=== PATIENT | male | born 1955 | race Caucasian/White ===

== ENCOUNTER 2022-03-15 13:03 | Observation (INO) | payer SELFPAY ==
[2022-03-15] VITALS (20 sets, daily range): BP systolic 70–113; BP diastolic 59–89; PULSE 62–90; RESP 10–18; TEMP 36.6; O2SAT 94–99; BMI 40.4
--- NOTE | 2022-03-15 13:52 | ED_ITS ---
HPI - General Adult General Chief complaint: Dizziness/Vertigo Stated complaint: Dizzy, short of breath Time Seen by Provider: 03/15/22 13:07 Source: patient Mode of arrival: ambulatory Limitations: no limitations History of Present Illness HPI narrative: Patient is a 66-year-old male coming in today complaining of dizziness. He states that over the last 2-3 months about once a week, he gets an episode no dizziness. He states that ?when I put my feet on the ground I get dizzy. ? The episodes generally lasts until he is able to sit down and put his feet up. . He describes the room moving around him, feeling very lightheaded. He states that this has been occurring more and more frequently over the last couple weeks and in the last 3 days it has been fairly constant. He states that if he is sitting down or lying down then he does okay but the minute that he changes positions generally from a sitting to a standing or lying to sitting he immediately becomes lightheaded. He states that 1 time he got up too quickly and he passed out. This happened last week. He denies any vomiting. He does not feel nauseated when this occurs. He denies chest pain or shortness of breath. No recent fevers or chills. No recent illness. He denies having headache. He denies changes in his hearing. He states when he gets very dizzy he almost has a hard time focusing on what he needs to see but his vision is otherwise not blurry or lessened. Denies any slurred speech. He denies any focal neurologic deficits or weakness of any extremity. He denies any new medications. Related Data Home Medications Medication Instructions Recorded Confirmed amiodarone 200 mg tablet 200 mg PO DAILY 03/15/22 03/15/22 glipizide 5 mg tablet 5 mg PO DAILY 03/15/22 03/15/22 metoprolol succinate 50 mg 50 mg PO DAILY 03/15/22 03/15/22 tablet,extended release 24 hr spironolactone 100 mg tablet 100 mg PO DAILY 03/15/22 03/15/22 valsartan 160 mg tablet 160 mg PO BID 03/15/22 03/15/22 Allergies Allergy/AdvReac Type Severity Reaction Status Date / Time No Known Drug Allergies Allergy Verified 03/15/22 13:22 Review of Systems Status of ROS: Reports: 10 or more systems reviewed and unremarkable except as noted in History and below [facility] Medical History (Updated 03/15/22 @ 16:20 by Rossy Carrasco MD) Atrial fibrillation Non-insulin dependent diabetes mellitus Social History Smoking Status: Current every day smoker What tobacco products do you use: cigarettes Do you use any of these nicotine containing products: None Second hand tobacco smoke exposure: No How often do you have a drink containing alcohol: never How often do you have six or more drinks on one occasion: Never AUDIT-C Alcohol total score: 0 Non-prescribed substance use: denies use Exam Narrative: Exam Narrative: Obese, well-developed patient in no acute distress. Alert and oriented. Answers questions appropriately. Mood and affect are appropriate. Thoughts are goal oriented and rational. No tangential or magical thinking noted. Patient speaks in full sentences without needing to catch his breath. HEENT: Normocephalic atraumatic. Pupils are equally round reactive to light. Extraocular muscles are intact. Conjunctivae are moist without any icterus noted. Dry mucous membranes. Posterior pharynx is normal. Neck is soft without any lymphadenopathy or thyromegaly. No masses are appreciated. Cardiovascular: Heart is regular rate and rhythm S1 and S2 are present without any murmurs. Lungs: Clear to auscultation bilaterally no wheezes rhonchi or rales are appreciated. Patient takes deep breaths without any discomfort. Abdomen: Soft and nontender nondistended with normal bowel sounds. No guarding or rebound. Extremities: Bilateral lower extremities are without edema. Normal DP and PT pulses. Skin: Well perfused without any obvious rashes. Const: Vital Signs, click to edit/add: Vital Signs - 24 hr 03/15/22 13:22 03/15/22 13:15 03/15/22 13:35 Temperature 97.8 F Pulse Rate [Right Pulse Oximeter] 90 Pulse Rate [orthos tatic lying Left P ulse Oximeter] 75 Pulse Rate [orthos tatic sitting Left Pulse Oximeter] 87 Pulse Rate [orthos tatic standing Rig ht Pulse Oximeter] Respiratory Rate 18 Blood Pressure [Ri ght Forearm] 104/80 104/80 Blood Pressure [or thostatic lying Ri ght Arm] 102/74 Blood Pressure [or thostatic sitting] 70/59 L Blood Pressure [or thostatic standing Left Arm] Pulse Oximetry 97 Oxygen Delivery Me thod Room Air 03/15/22 14:30 03/15/22 15:11 03/15/22 15:00 Temperature Pulse Rate [Right Pulse Oximeter] 66 71 Pulse Rate [orthos tatic lying Left P ulse Oximeter] 71 Pulse Rate [orthos tatic sitting Left Pulse Oximeter] 78 Pulse Rate [orthos tatic standing Rig ht Pulse Oximeter] 84 Respiratory Rate 10 L 11 L Blood Pressure [Ri ght Forearm] 113/81 105/74 Blood Pressure [or thostatic lying Ri ght Arm] 105/74 Blood Pressure [or thostatic sitting] 97/67 Blood Pressure [or thostatic standing Left Arm] 89/72 L Pulse Oximetry 97 99 Oxygen Delivery Me thod Room Air Room Air 03/15/22 15:20 03/15/22 15:30 03/15/22 13:30 Temperature Pulse Rate [Right Pulse Oximeter] 68 70 73 Pulse Rate [orthos tatic lying Left P ulse Oximeter] Pulse Rate [orthos tatic sitting Left Pulse Oximeter] Pulse Rate [orthos tatic standing Rig ht Pulse Oximeter] Respiratory Rate 12 10 L 10 L Blood Pressure [Ri ght Forearm] 99/60 112/89 104/70 Blood Pressure [or thostatic lying Ri ght Arm] Blood Pressure [or thostatic sitting] Blood Pressure [or thostatic standing Left Arm] Pulse Oximetry 99 94 97 Oxygen Delivery Ky thod Room Air Room Air Room Air 03/15/22 13:40 03/15/22 14:00 Temperature Pulse Rate [Right Pulse Oximeter] 76 69 Pulse Rate [orthos tatic lying Left P ulse Oximeter] Pulse Rate [orthos tatic sitting Left Pulse Oximeter] Pulse Rate [orthos tatic standing Rig ht Pulse Oximeter] Respiratory Rate 16 10 L Blood Pressure [Ri ght Forearm] 110/75 90/65 Blood Pressure [or thostatic lying Ri ght Arm] Blood Pressure [or thostatic sitting] Blood Pressure [or thostatic standing Left Arm] Pulse Oximetry 96 97 Oxygen Delivery Ky thod Room Air Room Air Course Course Hospital Course: Patient had significant orthostatic hypotension upon arrival with an almost 30 point drop in systolic blood pressure from lying to sitting. He received a L of normal saline and felt significantly better. His orthostatic hypotension resolved and his dizziness had resolved. His labs did show acute renal failure. Upon further conversation patient tells me that he stopped drinking alcohol, which she had been drinking for the last 15 years on a daily basis, 1 month ago. However, Venous blood gas came back with a pH low at 7.2. Discussed patient with Dr. Carrasco who recommended admission for further observation. Vital Signs Vital signs: Initial Vital Signs Blood Pressure 104/80 03/15/22 13:15 Blood Pressure Mean 88 03/15/22 13:15 Blood Pressure Position Supine 03/15/22 13:15 Vital Signs Blood Pressure 104/80 03/15/22 13:15 Temperature 97.8 F 03/15/22 13:22 Pulse Rate 70 03/15/22 15:30 Respiratory Rate 10 L 03/15/22 15:30 Blood Pressure 112/89 03/15/22 15:30 Pulse Oximetry 94 03/15/22 15:30 Oxygen Delivery Method 03/15/22 15:30 Medical Decision Making MDM Narrative Medical decision making narrative: 66-year-old male with orthostatic hypotension, acute renal failure, and metabolic acidosis, rate controlled atrial fibrillation. His blood pressure is also quite low at baseline. This is changed from several months ago when he had chronically elevated blood pressure. I do think that he cessation of alcohol use certainly had something do with these changes that are occurring. Given his low pH and low blood pressure, patient will be admitted for further management at this time. Medical Records Medical records reviewed: Yes I reviewed the patient's medical records Lab Data Lab results reviewed: Yes I reviewed the patient's lab results Labs: Lab Results 03/15/22 03/15/22 03/15/22 Range/Units 13:44 13:50 13:50 WBC 7.28 (4.50-11.00) K/uL RBC 4.95 (4.30-5.90) m/uL Hgb 16.3 (13.5-17.5) gm/dL Hct 48.1 (37.0-53.0) % MCV 97 (80-100) fL MCH 33 (26-34) pg MCHC 34 (32-36) gm/dL RDW Coeff of Leni 12.3 (11.5-15.5) % Plt Count 304 (140-440) K/uL Neut % (Auto) 60.2 (42.0-72.0) % Lymph % (Auto) 31.0 (20-44) % [place] % (Auto) 4.7 (0.0-11.0) % Eos % (Auto) 3.6 (0.0-7.0) % Baso % (Auto) 0.4 (0.0-3.0) % Neut # (Auto) 4.38 (1.7-7.0) K/uL Lymph # (Auto) 2.26 (0.90-2.90) K/uL [place] # (Auto) 0.30 (0.00-0.90) K/UL Eos # (Auto) 0.26 (0.00-0.50) K/uL Baso # (Auto) 0.03 (0.00-0.30) K/uL Abs Immat Gran (auto) 0.01 (0.00-0.30) K/uL VBG pH (7.32-7.43) VBG pCO2 (40-50) mmHG VBG pO2 (25-47) mmHG VBG HCO3 (21-28) mmol/L Sodium 137 (135-149) mmol/L Potassium 5.2 H (3.6-5.1) mmol/L Chloride 111 (96-114) mmol/L Carbon Dioxide 17 L (20-32) mmol/L BUN 31 H (7-30) mg/dL Creatinine 1.8 H (0.5-1.5) mg/dL Estimated Creat Clear 53.60 Estimated GFR 42 ml/min Glucose 142 H (60-115) mg/dL Calcium 9.4 (8.4-10.6) mg/dL Total Bilirubin 0.7 (0.1-1.5) mg/dL Direct Bilirubin 0.2 (0.0-0.5) mg/dL AST 31 (12-35) U/L ALT 51 H (4-50) U/L Alkaline Phosphatase 56 (40-150) U/L NT-Pro-B Natriuret Pep (0-125) PG/mL Total Protein 7.6 (6.0-8.3) g/dL Albumin 4.3 (3.3-5.0) g/dL POC Troponin I 0.00 L (0.01-0.04) ng/ml 03/15/22 03/15/22 Range/Units 13:50 14:56 WBC (4.50-11.00) K/uL RBC (4.30-5.90) m/uL Hgb (13.5-17.5) gm/dL Hct (37.0-53.0) % MCV (80-100) fL MCH (26-34) pg MCHC (32-36) gm/dL RDW Coeff of Leni (11.5-15.5) % Plt Count (140-440) K/uL Neut % (Auto) (42.0-72.0) % Lymph % (Auto) (20-44) % [place] % (Auto) (0.0-11.0) % Eos % (Auto) (0.0-7.0) % Baso % (Auto) (0.0-3.0) % Neut # (Auto) (1.7-7.0) K/uL Lymph # (Auto) (0.90-2.90) K/uL [place] # (Auto) (0.00-0.90) K/UL Eos # (Auto) (0.00-0.50) K/uL Baso # (Auto) (0.00-0.30) K/uL Abs Immat Gran (auto) (0.00-0.30) K/uL VBG pH 7.272 L (7.32-7.43) VBG pCO2 51 H (40-50) mmHG VBG pO2 26.5 (25-47) mmHG VBG HCO3 24 (21-28) mmol/L Sodium (135-149) mmol/L Potassium (3.6-5.1) mmol/L Chloride (96-114) mmol/L Carbon Dioxide (20-32) mmol/L BUN (7-30) mg/dL Creatinine (0.5-1.5) mg/dL Estimated Creat Clear Estimated GFR ml/min Glucose (60-115) mg/dL Calcium (8.4-10.6) mg/dL Total Bilirubin (0.1-1.5) mg/dL Direct Bilirubin (0.0-0.5) mg/dL AST (12-35) U/L ALT (4-50) U/L Alkaline Phosphatase (40-150) U/L NT-Pro-B Natriuret Pep 414 H (0-125) PG/mL Total Protein (6.0-8.3) g/dL Albumin (3.3-5.0) g/dL POC Troponin I (0.01-0.04) ng/ml ECG Data Attestation: I personally reviewed and interpreted this ECG as follows: (Rate controlled atrial fibrillation) Discharge Plan Discharge Clinical Impression: Acute renal failure, Metabolic acidosis, Dehydration Patient Disposition: Admitted As Inpatient
[2022-03-15] MEDS: 0.9 % SODIUM CHLORIDE 1000 ml 1,000 ML IV (14:00)
[2022-03-15 14:11] LABS: Basophils Absolute Auto 0.03 K/uL (0.00-0.30); Basophils Percent Auto 0.4 % (0.0-3.0); Eosinophils Absolute Auto 0.26 K/uL (0.00-0.50); Eosinophils Percent Auto 3.6 % (0.0-7.0); Hematocrit 48.1 % (37.0-53.0); Hemoglobin* 16.3 gm/dL (13.5-17.5); Immature Granulocytes Abs Auto 0.01 K/uL (0.00-0.30); Lymphocytes Absolute Auto 2.26 K/uL (0.90-2.90); Mean Corpuscular HGB Conc 34 gm/dL (32-36); Mean Corpuscular Hemoglobin 33 pg (26-34); Mean Corpuscular Volume 97 fL (80-100); Monocytes Percent Auto 4.7 % (0.0-11.0); Neutrophils Absolute Auto 4.38 K/uL (1.7-7.0); Neutrophils Percent Auto 60.2 % (42.0-72.0); Platelet Count* 304 K/uL (140-440); RDW Coefficient of Variation % 12.3 % (11.5-15.5); Red Blood Count 4.95 m/uL (4.30-5.90); White Blood Count* 7.28 K/uL (4.50-11.00)
[2022-03-15 14:12] LABS: Albumin* 4.3 g/dL (3.3-5.0); Chloride* 111 mmol/L (96-114); Potassium* 5.2 mmol/L (3.6-5.1); Sodium* 137 mmol/L (135-149)
[2022-03-15 14:14] LABS: Creatinine* 1.8 mg/dL (0.5-1.5); Estimated Glomerular Filt Rate 42 ml/min; Slide Review Reflex No
[2022-03-15 14:15] LABS: Alanine Aminotransferase* 51 U/L (4-50); Alkaline Phosphatase* 56 U/L (40-150); Aspartate Amino Transferase* 31 U/L (12-35); Bilirubin Direct* 0.2 mg/dL (0.0-0.5); Bilirubin Total* 0.7 mg/dL (0.1-1.5); Blood Urea Nitrogen* 31 mg/dL (7-30); Calcium* 9.4 mg/dL (8.4-10.6); Carbon Dioxide* 17 mmol/L (20-32); Glucose* 142 mg/dL (60-115); Total Protein* 7.6 g/dL (6.0-8.3)
[2022-03-15 15:12] LABS: HCO3 VBG 24 mmol/L (21-28); PCO2 VBG 51 mmHG (40-50); PO2 VBG 26.5 mmHG (25-47); pH VBG 7.272 (7.32-7.43)
[2022-03-15 15:45] LABS: NT Pro B Type NatriureticPept* 414 PG/mL (0-125)
--- NOTE | 2022-03-15 15:45 | ED.NURSE ---
spoke with pt about discharge. In anticipation of pt discharged, IV in R AC DC'd, catheter intact. Monitors DC'd. then returned to after viewing additional lab results, pt now needing admission.
--- NOTE | 2022-03-15 16:05 | P.IMHP_ITS ---
Hospitalist- H&P: DARSHAN History of Present Illness Time Seen by Provider: 16:05 Date Seen: 03/15/22 Chief complaint: Dizzy, short of breath Narrative: Salinas Meza is a 66 year old male who presented to the ED for dizziness. He has noted this intermittently for the past 2-3 months, but it has increased in frequency and intensity over the past week. Standing exacerbates symptoms; patient actually had an episode of syncope this week after standing up. He also has noted intermittent dyspnea, which he has had intermittently in the past due to his AFib. This is unchanged today. He has not had any chest pain, fevers, or other signs or symptoms of illness. No LE edema or pain. Of note, Salinas had been drinking a few beers daily for many years, stopped this approximately 1 month ago. ED Course and Findings: - BP on arrival to the ED was 104/80 with + orthostatic hypotension, which improved after IV fluid bolus - Ph of 7.27, CO2 51, HCO3 normal - Creatinine of 1.8, K of 5.2 (baseline creatinine 0.8 in November 2021) History of atrial fibrillation, first noted in August 2017. Has had a hard time controlling his rate over the past few years (hospitalized in [place] in 2019). Has been cardioverted x2. Doesn't tolerate a fib symptoms well (fatigue, HINOJOSA). He follows with Dr. Amaro at the [facility]. Currently on metoprolol and amiodarone for rate control. Last TTE was performed in August 2020, exhibiting normal left ventricular size with moderately increased wall thickness and a normal global systolic function and EF 60-65%, as well as an dilated ascending aorta with maximal diameter 4.2 cm. He is on aspirin as monotherapy for anticoagulation (had been on Xarelto and Coumadin in the past, stopped both of these secondary to cost and time constraints). Comorbidities include essential hypertension, non-insulin dependent DM2, with most recent A1c 7.0 in August of 2021, and likely sleep apnea (noted by Cardiology in the past, patient has elected to defer sleep study). , has 2 adult sons. Son Christiano would be medical decision maker if needed. Full Code, would not want care home ventilation. Lives in [place], works in construction. Recently restarted smoking (quit about 5 years ago), took this up again after quitting drinking. Has not been COVID vaccinated, refuses discussion. Dr. Díaz is PCP. Review of Systems Status of ROS: Reports: 10 or more systems reviewed and unremarkable except as noted in History and below [facility] Medical History (Updated 03/15/22 @ 17:04 by Rossy Carrasco MD) Atrial fibrillation Non-insulin dependent diabetes mellitus Social History Smoking Status: Current every day smoker What tobacco products do you use: cigarettes Do you use any of these nicotine containing products: None Second hand tobacco smoke exposure: No How often do you have a drink containing alcohol: never How often do you have six or more drinks on one occasion: Never AUDIT-C Alcohol total score: 0 Non-prescribed substance use: denies use Meds Home Medications and Allergies Home Medications Medication Instructions Recorded Confirmed Type amiodarone 200 mg tablet 200 mg PO DAILY 03/15/22 03/15/22 History glipizide 5 mg tablet 5 mg PO DAILY 03/15/22 03/15/22 History metoprolol succinate 50 mg 50 mg PO DAILY 03/15/22 03/15/22 History tablet,extended release 24 hr spironolactone 100 mg tablet 100 mg PO DAILY 03/15/22 03/15/22 History valsartan 160 mg tablet 160 mg PO BID 03/15/22 03/15/22 History Home Medication Comments: Patient also on 325mg ASA daily. Allergies Allergy/AdvReac Type Severity Reaction Status Date / Time No Known Drug Allergies Allergy Verified 03/15/22 13:22 Exam Narrative: Exam Narrative: GEN: Alert and oriented, answering questions appropriately and sitting comfortably in bed HEENT: Normal external ears, EOMIs bilaterally, no scleral icterus CV: Rate controlled atrial fibrillation, No concerning murmurs, rubs, or gallops R: LCTA bilaterally without concerning wheezing, rales, or rhonchi, air movement adequate Ext: wwp, no concerning edema Skin: No concerning skin lesions or rashes on exposed skin Neuro: Nonfocal, no resting tremor Psych: Appropriate Const: Vital Signs, click to edit/add: Vital Signs - 24 hr 03/15/22 13:22 03/15/22 13:15 03/15/22 13:35 Temperature 97.8 F Pulse Rate [Right Pulse Oximeter] 90 Pulse Rate [orthos tatic lying Left P ulse Oximeter] 75 Pulse Rate [orthos tatic sitting Left Pulse Oximeter] 87 Pulse Rate [orthos tatic standing Rig ht Pulse Oximeter] Respiratory Rate 18 Blood Pressure [Ri ght Forearm] 104/80 104/80 Blood Pressure [or thostatic lying Ri ght Arm] 102/74 Blood Pressure [or thostatic sitting] 70/59 L Blood Pressure [or thostatic standing Left Arm] Pulse Oximetry 97 Oxygen Delivery Me thod Room Air 03/15/22 14:30 03/15/22 15:11 03/15/22 15:00 Temperature Pulse Rate [Right Pulse Oximeter] 66 71 Pulse Rate [orthos tatic lying Left P ulse Oximeter] 71 Pulse Rate [orthos tatic sitting Left Pulse Oximeter] 78 Pulse Rate [orthos tatic standing Rig ht Pulse Oximeter] 84 Respiratory Rate 10 L 11 L Blood Pressure [Ri ght Forearm] 113/81 105/74 Blood Pressure [or thostatic lying Ri ght Arm] 105/74 Blood Pressure [or thostatic sitting] 97/67 Blood Pressure [or thostatic standing Left Arm] 89/72 L Pulse Oximetry 97 99 Oxygen Delivery Me thod Room Air Room Air 03/15/22 15:20 03/15/22 15:30 03/15/22 13:30 Temperature Pulse Rate [Right Pulse Oximeter] 68 70 73 Pulse Rate [orthos tatic lying Left P ulse Oximeter] Pulse Rate [orthos tatic sitting Left Pulse Oximeter] Pulse Rate [orthos tatic standing Rig ht Pulse Oximeter] Respiratory Rate 12 10 L 10 L Blood Pressure [Ri ght Forearm] 99/60 112/89 104/70 Blood Pressure [or thostatic lying Ri ght Arm] Blood Pressure [or thostatic sitting] Blood Pressure [or thostatic standing Left Arm] Pulse Oximetry 99 94 97 Oxygen Delivery Me thod Room Air Room Air Room Air 03/15/22 13:40 03/15/22 14:00 Temperature Pulse Rate [Right Pulse Oximeter] 76 69 Pulse Rate [orthos tatic lying Left P ulse Oximeter] Pulse Rate [orthos tatic sitting Left Pulse Oximeter] Pulse Rate [orthos tatic standing Rig ht Pulse Oximeter] Respiratory Rate 16 10 L Blood Pressure [Ri ght Forearm] 110/75 90/65 Blood Pressure [or thostatic lying Ri ght Arm] Blood Pressure [or thostatic sitting] Blood Pressure [or thostatic standing Left Arm] Pulse Oximetry 96 97 Oxygen Delivery Me thod Room Air Room Air Hospitalist - H&P: Result Labs Labs: Short CBC 03/15/22 Range/Units 13:50 WBC 7.28 (4.50-11.00) K/uL Hgb 16.3 (13.5-17.5) gm/dL Hct 48.1 (37.0-53.0) % Plt Count 304 (140-440) K/uL BMP 03/15/22 13:50 Sodium 137 Potassium 5.2 H Chloride 111 Carbon Dioxide 17 L BUN 31 H Creatinine 1.8 H Glucose 142 H Calcium 9.4 Liver Function 03/15/22 Range/Units 13:50 Total Bilirubin 0.7 (0.1-1.5) mg/dL Direct Bilirubin 0.2 (0.0-0.5) mg/dL AST 31 (12-35) U/L ALT 51 H (4-50) U/L Alkaline Phosphatase 56 (40-150) U/L Albumin 4.3 (3.3-5.0) g/dL Assessment and Plan Assessment and plan (1) Acute renal failure: Status: Acute Assessment and Plan: Likely prerenal, given hypotension - meds possibly contributing as well. Continue IV fluids at a low rate, follow renal function. Stop Valsartan and Spironolactone, decrease Glipizide from 5 to 2.5mg. (2) Iatrogenic hypotension: Status: Acute Assessment and Plan: Expect improvement with medication changes. We discussed that patient's blood pressure has likely improved with his cessation of alcohol use, and he will need less medication for BP control. He will require close outpatient follow-up for blood pressure monitoring. (3) Acidosis: Status: Acute Assessment and Plan: Mild elevation of CO2, but unknown baseline, likely has PALOMO. No evidence of acute illness, acidosis likely related to MAYDA and dehydration. Follow VBG; expect pH to improve as blood pressure increases. (4) Dehydration: Status: Acute (5) Atrial fibrillation: Status: Acute Assessment and Plan: Currently rate controlled. CHADsVASC of 3, patient defers anticoagulation beyond ASA. Given syncope and hypotension, will repeat TTE to assess cardiac structure and EF. Continue outpatient Cardiology f/u. (6) Non-insulin dependent diabetes mellitus: Status: Acute Assessment and Plan: Accu-Cheks and sliding scale insulin. (7) Hyperkalemia: Status: Acute Assessment and Plan: Likely related to #1 Above. Will monitor with telemetry during stay. Plan Renally dosed Lovenox for prophylaxis. Patient requests Full Code status, does not desire care home ventilatory support.
[2022-03-15 16:45] LABS: Lactate* 1.4 mmol/L (0.5-1.9)
[2022-03-15 16:49] LABS: PCR FLU A Negative PCR FLU A (Negative); PCR FLU B Negative PCR FLU B (Negative)
--- NOTE | 2022-03-15 16:51 | W.PC.EDHO ---
Primary Language: Lao Preferred Language: Orientation Status: [x] Alert & Oriented [] Slight Confusion [] Known Dx Dementia Transfers By: [x] Assist of 1 [] Assist of 2 [] Lift Description of Symptoms ED Triage Present Problem history of afib and diabetes. pt states has been Description having dizzy spells for a couple months. called clinic today and was referred to ED Ena Coma Scale Ena coma scale total score 15 IV Insertion/Site Date of IV Line Insertion [ 03/15/22 Right Forearm] Date of IV Line Insertion [ *DC'd* 03/15/22 Right Antecubital] Oxygen Administration Pulse Oximetry 95 Pulse Oximetry 94 Pulse Oximetry 99 Pulse Oximetry 99 Pulse Oximetry 97 Pulse Oximetry 97 Pulse Oximetry 96 Pulse Oximetry 97 Pulse Oximetry 97 Oxygen Delivery Method Room Air Oxygen Delivery Method Room Air Oxygen Delivery Method Room Air Oxygen Delivery Method Room Air Oxygen Delivery Method Room Air Oxygen Delivery Method Room Air Oxygen Delivery Method Room Air Oxygen Delivery Method Room Air Oxygen Delivery Method Room Air Cardiac Monitoring EKG Method 12 Lead
[2022-03-15 17:23] LABS: SARS PCR* Negative SARS-CoV-2 (Negative)
[2022-03-15] MEDS: 0.9 % SODIUM CHLORIDE 1000 ml 1,000 ML 75 ML IV (20:48)
--- NOTE | 2022-03-16 05:51 | PC.NURSE ---
Alert and oriented x4. Denies diziness. Vitals are stable and patient is on room air.Denies pain. Afib on continuous telemetry. Up independently to the bathroom. Voiding fine without concerns. Monitored overnight; no new concerns noted
[2022-03-16 06:35] LABS: HCO3 VBG 22 mmol/L (21-28); PCO2 VBG 44 mmHG (40-50); PO2 VBG 39.6 mmHG (25-47); pH VBG 7.302 (7.32-7.43)
[2022-03-16 06:56] LABS: Albumin* 3.9 g/dL (3.3-5.0); Chloride* 111 mmol/L (96-114); Potassium* 5.3 mmol/L (3.6-5.1); Sodium* 137 mmol/L (135-149)
[2022-03-16 06:58] LABS: Creatinine* 1.3 mg/dL (0.5-1.5); Est. Creatinine Clearance* 74.21; Estimated Glomerular Filt Rate 61 ml/min
[2022-03-16 06:59] LABS: Alanine Aminotransferase* 49 U/L (4-50); Alkaline Phosphatase* 48 U/L (40-150); Aspartate Amino Transferase* 32 U/L (12-35); Bilirubin Total* 0.9 mg/dL (0.1-1.5); Blood Urea Nitrogen* 27 mg/dL (7-30); Carbon Dioxide* 21 mmol/L (20-32); Glucose* 108 mg/dL (60-115)
[2022-03-16 07:00] VITALS: BP 95/64; PULSE 73; RESP 20; TEMP 36.6; O2SAT 99
[2022-03-16 07:00] LABS: Calcium* 8.9 mg/dL (8.4-10.6)
[2022-03-16 07:14] LABS: Troponin I* < 0.01 ng/mL (0.01-0.04)
[2022-03-16 07:30] VITALS: BP 95/64; PULSE 73; RESP 20; TEMP 36.7; O2SAT 99
[2022-03-16 08:25] VITALS: PULSE 88
[2022-03-16 10:00] VITALS: BP 100/76; BP 103/93; BP 92/68; PULSE 102; PULSE 82; PULSE 92
[2022-03-16] MEDS: glipiZIDE 5 MG TABLET 2.5 MG PO (10:00)
[2022-03-16] MEDS: METOPROLOL SUCCINATE (XL) 50 MG TAB PO (10:02)
[2022-03-16] MEDS: AMIODARONE 200 MG TABLET PO (10:02)
[2022-03-16] MEDS: ASPIRIN 81 MG TAB.CHEW 324 MG PO (10:02)
--- NOTE | 2022-03-16 10:52 | NUTR.NU ---
SRINATHN with MD consult for low sodium and diabetes type 2 diet education[address] RDN visited with patient whom agreed to receive diet education materials, however he denied review of educational materials at this time. He stated it would be redundant and that he has received this diet education 2x recently. RDN provided patient with handouts from [facility] on Heart Healthy with Carbohydrate Counting Nutrition Therapy and Carbohydrate Counting for People with Diabetes. Patient states he eats a lot of canned soups and red meat, and that he will not change what he is eating. He reports he has recently decreased his use of salt, rarely salting foods now. RDNs contact information was provided and patient was encouraged to contact RDN if he had any questions.
--- NOTE | 2022-03-16 11:29 | P.IMPN_ITS ---
Progress Note: A&P Assessment and plan (1) Acute renal failure: Status: Acute Assessment and Plan: Acute kidney injury likely due to combination of factors including aggressive treatment of heart failure with spironolactone and valsartan. Unclear why this week he had hypotension, acute kidney injury, hyperkalemia and metabolic acidosis. Will hold spironolactone and cut valsartan in half. Will need close followup and additional titration of heart failure medicines. (2) Heart failure with preserved ejection fraction: Status: Acute Assessment and Plan: Patient describes significant heart failure symptoms. He tells me he can only work for about 10 minutes before he has to stop and take a break and catch his breath. This has been a long-standing problem. Worse recently. It appears he is having adequate rate control with his AFib. Likely other factors are contributing. Optimizing heart failure medicines over the next weeks and months may benefit this. (3) Atrial fibrillation: Status: Acute Assessment and Plan: Rate control appears to be adequate. Continue metoprolol and amiodarone. Unclear if needing a long-term amiodarone (4) Hyperkalemia: Status: Acute Assessment and Plan: Likely due to hypotension with spironolactone and valsartan. Temporarily stop spironolactone and cut valsartan in half. Patient may tolerate a low dose of spironolactone in the future (5) Non-insulin dependent diabetes mellitus: Status: Acute Assessment and Plan: Adequate control (6) Iatrogenic hypotension: Status: Acute Assessment and Plan: Still relatively low blood pressure today. Has not yet held medicine for 24 hours. (7) Metabolic acidosis: Status: Acute Assessment and Plan: Resolved with fluid overnight (8) Gynecomastia: Status: Acute Assessment and Plan: Due to high-dose spironolactone. May tolerate low-dose in the future Plan Obtain echocardiogram today. Monitor for symptoms. Possibly discharge to home later today if feeling well an echocardiogram does not show new problems. Subjective Date Seen: 03/16/22 Interval history: 66-year-old male seen in followup of acute on chronic dyspnea and acute on chronic dizziness. Patient reports longstanding problems with exertional dyspnea. This is gotten worse in the last few days. He also has had increasing dizziness in the last few days. He he attributes this to atrial fibrillation. He has had atrial fibrillation for about 4 years. He is unsure whether he is in persistent AFib or in an out of paroxysmal AFib. He has apparently had fairly good rate control with his atrial fibrillation. He has had orthostatic lightheadedness and dizziness which has been much worse in the past week. He reports he has been able to eat and drink normally. He has not been having nausea or vomiting or diarrhea. He has not any other symptoms of illness. No fever. No chest pain. About a month ago he stop drinking alcohol altogether and wonders if that is contributing to his current symptoms. He had increase in his spironolactone to 100 mg daily. He reports this is causing some gynecomastia and tenderness in his breasts. Exam Narrative: Exam Narrative: He is alert and appears in no distress. Speech is normal. Small airway. No jugular venous distension. Respirations are clear to auscultation. No wheezing rales or rhonchi. Good air exchange all lung sidhu. Cardiovascular: S1, S2, somewhat distant heart sounds. Irregularly irregular rhythm. No murmur gallop or rub. Abdomen: Bowel sounds active. Abdomen is soft without tenderness or mass. Extremities with no edema. Intact peripheral pulses. He moves all 4 extremities well. No rash. Const: Vital Signs, click to edit/add: Vital Signs - 24 hr 03/15/22 13:22 03/15/22 13:15 03/15/22 13:35 Temperature 97.8 F Pulse Rate Pulse Rate [Pulse Oximeter] Pulse Rate [Right Pulse Oximeter] 90 Pulse Rate [orthos tatic lying Left P ulse Oximeter] 75 Pulse Rate [orthos tatic sitting Left Pulse Oximeter] 87 Pulse Rate [orthos tatic standing Rig ht Pulse Oximeter] Respiratory Rate 18 Blood Pressure [Le ft Arm] Blood Pressure [Ri ght Forearm] 104/80 104/80 Blood Pressure [or thostatic lying Ri ght Arm] 102/74 Blood Pressure [or thostatic sitting] 70/59 L Blood Pressure [or thostatic standing Left Arm] Pulse Oximetry 97 Oxygen Delivery Me thod Room Air 03/15/22 14:30 03/15/22 15:11 03/15/22 15:00 Temperature Pulse Rate Pulse Rate [Pulse Oximeter] Pulse Rate [Right Pulse Oximeter] 66 71 Pulse Rate [orthos tatic lying Left P ulse Oximeter] 71 Pulse Rate [orthos tatic sitting Left Pulse Oximeter] 78 Pulse Rate [orthos tatic standing Rig ht Pulse Oximeter] 84 Respiratory Rate 10 L 11 L Blood Pressure [Le ft Arm] Blood Pressure [Ri ght Forearm] 113/81 105/74 Blood Pressure [or thostatic lying Ri ght Arm] 105/74 Blood Pressure [or thostatic sitting] 97/67 Blood Pressure [or thostatic standing Left Arm] 89/72 L Pulse Oximetry 97 99 Oxygen Delivery Me thod Room Air Room Air 03/15/22 15:20 03/15/22 15:30 03/15/22 16:46 Temperature Pulse Rate Pulse Rate [Pulse Oximeter] Pulse Rate [Right Pulse Oximeter] 68 70 66 Pulse Rate [orthos tatic lying Left P ulse Oximeter] Pulse Rate [orthos tatic sitting Left Pulse Oximeter] Pulse Rate [orthos tatic standing Rig ht Pulse Oximeter] Respiratory Rate 12 10 L Blood Pressure [Le ft Arm] Blood Pressure [Ri ght Forearm] 99/60 112/89 105/66 Blood Pressure [or thostatic lying Ri ght Arm] Blood Pressure [or thostatic sitting] Blood Pressure [or thostatic standing Left Arm] Pulse Oximetry 99 94 95 Oxygen Delivery Me thod Room Air Room Air Room Air 03/15/22 13:30 03/15/22 13:40 03/15/22 14:00 Temperature Pulse Rate Pulse Rate [Pulse Oximeter] Pulse Rate [Right Pulse Oximeter] 73 76 69 Pulse Rate [orthos tatic lying Left P ulse Oximeter] Pulse Rate [orthos tatic sitting Left Pulse Oximeter] Pulse Rate [orthos tatic standing Rig ht Pulse Oximeter] Respiratory Rate 10 L 16 10 L Blood Pressure [Le ft Arm] Blood Pressure [Ri ght Forearm] 104/70 110/75 90/65 Blood Pressure [or thostatic lying Ri ght Arm] Blood Pressure [or thostatic sitting] Blood Pressure [or thostatic standing Left Arm] Pulse Oximetry 97 96 97 Oxygen Delivery Me thod Room Air Room Air Room Air 03/15/22 17:00 03/15/22 17:15 03/15/22 17:30 Temperature Pulse Rate Pulse Rate [Pulse Oximeter] Pulse Rate [Right Pulse Oximeter] 70 74 62 Pulse Rate [orthos tatic lying Left P ulse Oximeter] Pulse Rate [orthos tatic sitting Left Pulse Oximeter] Pulse Rate [orthos tatic standing Rig ht Pulse Oximeter] Respiratory Rate Blood Pressure [Le ft Arm] Blood Pressure [Ri ght Forearm] 96/80 113/81 110/70 Blood Pressure [or thostatic lying Ri ght Arm] Blood Pressure [or thostatic sitting] Blood Pressure [or thostatic standing Left Arm] Pulse Oximetry 98 97 97 Oxygen Delivery Me thod Room Air Room Air Room Air 03/15/22 17:45 03/15/22 18:10 03/15/22 19:00 Temperature Pulse Rate 71 Pulse Rate [Pulse Oximeter] Pulse Rate [Right Pulse Oximeter] 66 Pulse Rate [orthos tatic lying Left P ulse Oximeter] Pulse Rate [orthos tatic sitting Left Pulse Oximeter] Pulse Rate [orthos tatic standing Rig ht Pulse Oximeter] Respiratory Rate Blood Pressure [Le ft Arm] Blood Pressure [Ri ght Forearm] 108/80 Blood Pressure [or thostatic lying Ri ght Arm] Blood Pressure [or thostatic sitting] Blood Pressure [or thostatic standing Left Arm] Pulse Oximetry 99 Oxygen Delivery Me thod Room Air Room Air 03/15/22 19:00 03/15/22 22:50 03/15/22 23:00 Temperature 97.8 F 97.8 F Pulse Rate 64 Pulse Rate [Pulse Oximeter] 68 Pulse Rate [Right Pulse Oximeter] Pulse Rate [orthos tatic lying Left P ulse Oximeter] Pulse Rate [orthos tatic sitting Left Pulse Oximeter] Pulse Rate [orthos tatic standing Rig ht Pulse Oximeter] Respiratory Rate 16 16 Blood Pressure [Le ft Arm] 108/63 103/75 Blood Pressure [Ri ght Forearm] Blood Pressure [or thostatic lying Ri ght Arm] Blood Pressure [or thostatic sitting] Blood Pressure [or thostatic standing Left Arm] Pulse Oximetry 99 99 Oxygen Delivery Me thod Room Air Room Air 03/16/22 07:30 03/16/22 10:00 03/16/22 08:25 Temperature 98.1 F Pulse Rate 88 Pulse Rate [Pulse Oximeter] 73 Pulse Rate [Right Pulse Oximeter] Pulse Rate [orthos tatic lying Left P ulse Oximeter] 82 Pulse Rate [orthos tatic sitting Left Pulse Oximeter] 92 Pulse Rate [orthos tatic standing Rig ht Pulse Oximeter] 102 H Respiratory Rate 20 Blood Pressure [Le ft Arm] 95/64 Blood Pressure [Ri ght Forearm] Blood Pressure [or thostatic lying Ri ght Arm] 100/76 Blood Pressure [or thostatic sitting] 92/68 Blood Pressure [or thostatic standing Left Arm] 103/93 H Pulse Oximetry 99 Oxygen Delivery Me thod Room Air 03/16/22 07:00 Temperature 97.8 F Pulse Rate Pulse Rate [Pulse Oximeter] 73 Pulse Rate [Right Pulse Oximeter] Pulse Rate [orthos tatic lying Left P ulse Oximeter] Pulse Rate [orthos tatic sitting Left Pulse Oximeter] Pulse Rate [orthos tatic standing Rig ht Pulse Oximeter] Respiratory Rate 20 Blood Pressure [Le ft Arm] 95/64 Blood Pressure [Ri ght Forearm] Blood Pressure [or thostatic lying Ri ght Arm] Blood Pressure [or thostatic sitting] Blood Pressure [or thostatic standing Left Arm] Pulse Oximetry 99 Oxygen Delivery Me thod Room Air Documenting provider has reviewed patient's vital signs: yes Labs Labs: Laboratory Results - last 24 hr 03/15/22 03/15/22 03/15/22 13:44 13:50 13:50 WBC 7.28 RBC 4.95 Hgb 16.3 Hct 48.1 MCV 97 MCH 33 MCHC 34 RDW Coeff of Leni 12.3 Plt Count 304 Neut % (Auto) 60.2 Lymph % (Auto) 31.0 [place] % (Auto) 4.7 Eos % (Auto) 3.6 Baso % (Auto) 0.4 Neut # (Auto) 4.38 Lymph # (Auto) 2.26 [place] # (Auto) 0.30 Eos # (Auto) 0.26 Baso # (Auto) 0.03 Abs Immat Gran (auto) 0.01 VBG pH VBG pCO2 VBG pO2 VBG HCO3 Sodium 137 Potassium 5.2 H Chloride 111 Carbon Dioxide 17 L BUN 31 H Creatinine 1.8 H Estimated Creat Clear 53.60 Estimated GFR 42 Glucose 142 H Lactate Calcium 9.4 Magnesium Total Bilirubin 0.7 Direct Bilirubin 0.2 AST 31 ALT 51 H Alkaline Phosphatase 56 Troponin I NT-Pro-B Natriuret Pep Total Protein 7.6 Albumin 4.3 TSH SARS-CoV-2 (PCR) Influenza Type A (PCR) Influenza Type B (PCR) POC Troponin I 0.00 L 03/15/22 03/15/22 03/15/22 13:50 14:56 16:06 WBC RBC Hgb Hct MCV MCH MCHC RDW Coeff of Leni Plt Count Neut % (Auto) Lymph % (Auto) [place] % (Auto) Eos % (Auto) Baso % (Auto) Neut # (Auto) Lymph # (Auto) [place] # (Auto) Eos # (Auto) Baso # (Auto) Abs Immat Gran (auto) VBG pH 7.272 L VBG pCO2 51 H VBG pO2 26.5 VBG HCO3 24 Sodium Potassium Chloride Carbon Dioxide BUN Creatinine Estimated Creat Clear Estimated GFR Glucose Lactate Calcium Magnesium Cancelled Total Bilirubin Direct Bilirubin AST ALT Alkaline Phosphatase Troponin I NT-Pro-B Natriuret Pep 414 H Total Protein Albumin TSH SARS-CoV-2 (PCR) Influenza Type A (PCR) Influenza Type B (PCR) POC Troponin I 03/15/22 03/15/22 03/15/22 16:06 16:07 16:32 WBC RBC Hgb Hct MCV MCH MCHC RDW Coeff of Leni Plt Count Neut % (Auto) Lymph % (Auto) [place] % (Auto) Eos % (Auto) Baso % (Auto) Neut # (Auto) Lymph # (Auto) [place] # (Auto) Eos # (Auto) Baso # (Auto) Abs Immat Gran (auto) VBG pH VBG pCO2 VBG pO2 VBG HCO3 Sodium Potassium Chloride Carbon Dioxide BUN Creatinine Estimated Creat Clear Estimated GFR Glucose Lactate 1.4 Calcium Magnesium Total Bilirubin Direct Bilirubin AST ALT Alkaline Phosphatase Troponin I NT-Pro-B Natriuret Pep Total Protein Albumin TSH 2.480 SARS-CoV-2 (PCR) Negative SARS-CoV-2 Influenza Type A (PCR) Negative PCR FLU A Influenza Type B (PCR) Negative PCR FLU B POC Troponin I 03/16/22 03/16/22 06:04 06:04 WBC RBC Hgb Hct MCV MCH MCHC RDW Coeff of Leni Plt Count Neut % (Auto) Lymph % (Auto) [place] % (Auto) Eos % (Auto) Baso % (Auto) Neut # (Auto) Lymph # (Auto) [place] # (Auto) Eos # (Auto) Baso # (Auto) Abs Immat Gran (auto) VBG pH 7.302 L VBG pCO2 44 VBG pO2 39.6 VBG HCO3 22 Sodium 137 Potassium 5.3 H Chloride 111 Carbon Dioxide 21 BUN 27 Creatinine 1.3 Estimated Creat Clear 74.21 Estimated GFR 61 Glucose 108 Lactate Calcium 8.9 Magnesium Total Bilirubin 0.9 Direct Bilirubin AST 32 ALT 49 Alkaline Phosphatase 48 Troponin I < 0.01 L NT-Pro-B Natriuret Pep Total Protein 7.0 Albumin 3.9 TSH SARS-CoV-2 (PCR) Influenza Type A (PCR) Influenza Type B (PCR) POC Troponin I
--- NOTE | 2022-03-16 14:06 | PC.NURSE ---
Pt UAL in his room. Eval by Dr. Borja. Orthostatic VS taken and provided to hospitalist. Pt denies pain, eupneic and in NAD. Tele indicates atrial fibrillation which is a chronic condition. Echocardiogram in process at this time with contrast per Srini [employer]ialty plant supervisor at bedside. Awaiting echo results and possible d/c later this afternoon.
[2022-03-16 14:40] LABS: Appearance Urine Clear (Clear); Bilirubin Urine Negative (Negative); Blood Urine Negative (Negative); Color Urine Yellow (Yellow); Glucose Urine Negative (Negative); Ketones Urine Negative (Negative); Leukocyte Esterase Urine Negative (Negative); Nitrite Urine Negative (Negative); Protein Urine Negative (Negative); Specific Gravity Urine 1.025 (1.000-1.030); Urobilinogen Urine 0.2 (0.2-1.0); pH Urine 5.5 (5.0-8.5)
[2022-03-16 14:45] LABS: RBC Urine 0-2 (0-2); WBC Urine 0-2 (0-5)
[2022-03-16 16:00] VITALS: BP 119/81; PULSE 70; RESP 18; TEMP 36.7; O2SAT 96
--- NOTE | 2022-03-16 17:23 | PC.NURSE ---
discharge. went over discharge packet with pt went over medsx1, appt 1 education and instructions. pt signed personal belonging sheet. took all belongings and paperwork with him. SL was d/c on previous shift. pt walked out on his own
== END 2022-03-16 15:50 | disposition home or self-care (01) ==
LOC: ED 16:29 → MEDSURG 17:19
PROVIDERS: Admitting Provider Family Medicine; Emergency Provider Family Medicine; PCP Family Medicine; Visit Provider Family Medicine
DX: N17.9 Acute kidney failure, unspecified (principal); E11.9 Type 2 diabetes mellitus without complications; Z79.84 Long term (current) use of oral hypoglycemic drugs; I50.30 Unspecified diastolic (congestive) heart failure; I48.91 Unspecified atrial fibrillation; E86.0 Dehydration; E87.5 Hyperkalemia; I95.89 Other hypotension
CPT/HCPCS: 36415; 80048; 80053; 80076; 81001; 82803; 82947; 83605; 83735; 83880; 84443; 84484; 85025; 87502; 87635; 93005; 93306; 96360; 99284; 99285; G0378; A9270; J7030

== ENCOUNTER 2022-11-04 10:14 | Outpatient (CLI) | payer MEDICARE, OTHER, SELFPAY | END 2022-11-04 10:15 | disposition home or self-care (01) | PROVIDERS: PCP Family Medicine; Visit Provider Family Medicine | DX: E11.9 Type 2 diabetes mellitus without complications (principal); I10 Essential (primary) hypertension; R06.09 Other forms of dyspnea; Z79.899 Other long term (current) drug therapy; I48.91 Unspecified atrial fibrillation; Z13.6 Encounter for screening for cardiovascular disorders; Z12.5 Encounter for screening for malignant neoplasm of prostate | CPT/HCPCS: 80053; 80061; 83880; 84153; 84443 ==

== ENCOUNTER 2022-12-01 12:42 | Outpatient (CLI) | payer MEDICARE, OTHER, SELFPAY ==
[2022-12-01] MEDS: PERFLUTREN LIPID MICROSPHERES 2 ML VIAL IV (13:45)
--- NOTE | 2022-12-01 13:46 | PC.NURSE ---
22g PIV placed in right forearm. Definity contrast 2ml administered. Tolerated well. PIV taken out and catheter tip intact.
== END 2022-12-01 12:43 | disposition home or self-care (01) ==
LOC: RAD 12:43
PROVIDERS: PCP Family Medicine; Visit Provider Family Medicine
DX: I50.9 Heart failure, unspecified (principal); I34.0 Nonrheumatic mitral (valve) insufficiency; I35.1 Nonrheumatic aortic (valve) insufficiency
CPT/HCPCS: 93306; Q9957

== ENCOUNTER 2023-01-24 19:12 | Outpatient (CLI) | payer MEDICARE, OTHER, SELFPAY ==
--- NOTE | 2023-02-01 09:07 | W.PM.SLEEP ---
Sleep Study Details Details Interpreting Provider: Caprice Date of Sleep Study: 01/24/23 Sleep Study Details: STUDY TYPE:? Home unattended ? BMI:? 40.3 ORDERING PROVIDER:? Bre INDICATION:? Concerns about sleep apnea ? SLEEP SUMMARY:? 523 minutes monitored RESPIRATORY SUMMARY:? AHI 43, supine 47.8, left lateral 33.6, right lateral 56.1 Low oxygen 68 75.4% of study oxygen less than 90% Snoring 17.3% PERIODIC LIMB MOVEMENTS OF SLEEP:? Not recorded during home study CARDIAC:? Range 42-75, mean 55.4 IMPRESSION:? Severe obstructive sleep apnea with significant hypo oxygenation RECOMMENDATION: In-lab titration would be preferred. Alternative would be a AutoSet CPAP. Once effective therapy is established overnight oximetry should be performed. Given the level of hypo oxygenation noted during the study further cardiopulmonary evaluation may be indicated.
== END 2023-01-24 19:13 | disposition home or self-care (01) ==
LOC: SLEEP 19:13
PROVIDERS: PCP Family Medicine; Visit Provider Family Medicine
DX: G47.33 Obstructive sleep apnea (adult) (pediatric) (principal)
CPT/HCPCS: 95806

== ENCOUNTER 2023-03-24 08:39 | Outpatient (CLI) | payer MEDICARE, OTHER, SELFPAY | END 2023-03-24 08:40 | disposition home or self-care (01) | PROVIDERS: PCP Family Medicine; Visit Provider Family Medicine | DX: E11.9 Type 2 diabetes mellitus without complications (principal); I10 Essential (primary) hypertension; E78.5 Hyperlipidemia, unspecified; E66.9 Obesity, unspecified; E86.0 Dehydration; Z79.01 Long term (current) use of anticoagulants | CPT/HCPCS: 80061; 80076 ==

== ENCOUNTER 2023-06-28 08:43 | Outpatient (CLI) | payer MEDICARE, OTHER, SELFPAY | END 2023-06-28 08:44 | disposition home or self-care (01) | PROVIDERS: PCP Family Medicine; Visit Provider Family Medicine | DX: Z01.818 Encounter for other preprocedural examination (principal); R79.89 Other specified abnormal findings of blood chemistry; I10 Essential (primary) hypertension; E11.9 Type 2 diabetes mellitus without complications; N17.9 Acute kidney failure, unspecified; I50.9 Heart failure, unspecified; Z79.899 Other long term (current) drug therapy | CPT/HCPCS: 80076; 84270; 84402; 84403 ==

== ENCOUNTER 2023-07-11 07:24 | Day surgery (SDC) | payer MEDICARE, OTHER, SELFPAY ==
[2023-07-11] VITALS (21 sets, daily range): BP systolic 113–160; BP diastolic 75–98; PULSE 47–92; RESP 12–20; TEMP 35.7–36.6; O2SAT 16–100; BMI 32.3
--- NOTE | 2023-07-11 07:45 | CRLHL7_ITS ---
For Patients: As a result of the Century Cures Act, medical imaging exams and procedure reports are released immediately into your electronic medical record. You may view this report before your referring provider. If you have questions, please contact your health care provider. INDICATION: Follow up right knee arthroplasty. TECHNIQUE: Two postoperative images of the right knee. FINDINGS: Right total knee arthroplasty. The components are adequately aligned and well seated. Air within the soft tissues and joint space related to the surgery. IMPRESSION: Right total knee arthroplasty. The components are adequately aligned and well seated. Dictated by Dagoberto Li MD @ 07/11/2023 12:03:13 PM (Electronically Signed)
[2023-07-11] MEDS: ACETAMINOPHEN 500 MG TABLET 1000 MG PO ×3 (07:50→21:57)
[2023-07-11] MEDS: OXYCODONE (CR) 10 MG TAB.ER.12H PO (07:50)
[2023-07-11] MEDS: LACTATED RINGERS 1000 ML 1,000 ML 100 ML IV (08:00)
[2023-07-11] MEDS: SODIUM CHLORIDE 0.9 % (FLUSH) 10 ML SYRINGE IVF (08:00)
[2023-07-11] MEDS: MIDAZOLAM HCL 1 MG/ML inj IVP (09:02)
[2023-07-11] MEDS: fentaNYL 100 MCG/2 ML inj IVP (09:02)
--- NOTE | 2023-07-11 09:11 | W.ANESCHARGE ---
Anesthesia Charges Start Date/Time Anesthesia Start Date: 07/11/23 Anesthesia Start Time: 09:35 Stop Date/Time Anesthesia Stop Date: 07/11/23 Anesthesia Stop Time: 11:44
--- NOTE | 2023-07-11 09:12 | P.NB_ITS ---
Nerve Block Nerve Block Time Seen by Provider: 09:06 Date Seen: 07/11/23 Type of block requested by surgeon for post-operative analgesia: geniculars Side: right Time out performed: Yes Verification of patient name: Yes Verification of date of : Yes Site marking: site marked Name of person performing procedure: Elijah Assistants, if any: Stephanie Continuous monitoring Was continuous monitoring of O2 sat, B/P, nuclear monitoring technician, recorded every 15 minutes?: Yes Procedure Checklist: sterile prep, needles and gloves Medications given in 5ml increments after negative aspiration: Ropivicaine %: 0.5 mL: 9 Needle gauge: 25 Patient tolerated procedure well: Yes Block Charges Block Charge (with Pro Fee): Genicular Nerve Block Use of Ultrasound Machine for Block: No
--- NOTE | 2023-07-11 09:12 | W.PM.NB ---
Nerve Block Nerve Block Time Seen by Provider: 09:06 Date Seen: 07/11/23 Type of block requested by surgeon for post-operative analgesia: adductor canal Side: right Time out performed: Yes Verification of patient name: Yes Verification of date of : Yes Site marking: site marked Name of person performing procedure: Elijah Assistants, if any: Stephanie Continuous monitoring Was continuous monitoring of O2 sat, B/P, cardiac nurse specialist, recorded every 15 minutes?: Yes Procedure Checklist: sterile prep, needles and gloves Ultrasound guided. Images saved: Yes Medications given in 5ml increments after negative aspiration: Ropivicaine %: 0.5 mL: 20 Needle gauge: 20 Decadron (mg): 10 Precedex (mcg): 25 Patient tolerated procedure well: Yes Additional comments: Needle noted adjacent to nerve Block Charges Block Charge (with Pro Fee): Femoral Nerve Use of Ultrasound Machine for Block: Yes- US Guidance/pain block
--- NOTE | 2023-07-11 09:12 | SUR.PREOP ---
TIME?OUT:?0900 PT/Brian ZACARIAS, RN/Reynold BARTHOLOMEW, INSTRUCTIONAL TECHNOLOGY SPECIALIST/Reynold MENCHACA MDA?VERIFICATION?OF?SURGICAL?SITE,?PROCEDURE,?AND?CONSENT OBTAINED?PRIOR?TO?INVASIVE?PROCEDURE.
[2023-07-11] MEDS: TRANEXAMIC ACID 100 MG/ML INJ 1000 MG IV (09:43)
[2023-07-11] MEDS: CEFAZOLIN 2 GM in 0.9 % SODIUM CHLORIDE Mini-bag 100 ML IVPB ×3 (09:45→23:56)
[2023-07-11] MEDS: CEFAZOLIN 1 GM inj IVP (09:58)
--- NOTE | 2023-07-11 10:28 | PM.IMCN1 ---
Date of Consult Consult date: 07/11/23 Requesting Physician: Orthopedics Primary Care Provider: Leonid Díaz MD Consult Narrative Reason for consult: Medical management Narrative: Salinas Meza is a 67 year old male past medical history significant for type 2 diabetes (100 lb weight loss since starting Ozempic), hypertension, obstructive sleep apnea not currently on CPAP, atrial fibrillation not currently on anticoagulation, failure with preserved ejection fraction not currently on a diuretic, low testosterone, BPH is POD#0 s/p right total knee arthroplasty with Dr. Marinelli. Currently, reports pain is 0/10. Denies headache or dizziness. Denies nausea. No complaints or concerns at this time. There have been no perioperative complications or nursing concerns reported. Estimated total blood loss documented as 50ml. Updated and reviewed the active medical problems, past medical history, past surgical history, social history, allergies and medications in our electronic EMR. Review of Systems Narrative: REVIEW OF SYSTEMS: Complete review of systems performed and negative unless otherwise stated in HPI or below. PFSH PFS Medical History Atrial fibrillation ?I48.91 - Unspecified atrial fibrillation (ICD-10) Sleep apnea ?G47.30 - Sleep apnea, unspecified (ICD-10) Low testosterone in male ?R79.89 - Other specified abnormal findings of blood chemistry (ICD-10) Osteoarthritis of left knee ?M17.12 - Unilateral primary osteoarthritis, left knee (ICD-10) DJD (degenerative joint disease) ?M19.90 - Unspecified osteoarthritis, unspecified site (ICD-10) Heart failure with preserved ejection fraction ?I50.30 - Unspecified diastolic (congestive) heart failure (ICD-10) Gynecomastia ?N62 - Hypertrophy of breast (ICD-10) Social History (Updated 07/11/23 @ 10:51 by Madhuri Yu PA-C) Smoking Status: Current every day smoker What tobacco products do you use: cigarettes Do you use any of these nicotine containing products: None How often do you have a drink containing alcohol: 2-4 times a month Alcohol type: beer How many standard drinks containing alcohol do you have on a typical day: 1 or 2 How often do you have six or more drinks on one occasion: Never AUDIT-C Alcohol total score: 2 Non-prescribed substance use: denies use Caffeine: Yes Meds Home Medications and Allergies Home Medications Medication Instructions Recorded Confirmed Type ergocalciferol (vitamin D2) 1,250 1,250 mcg PO Q7D 05/05/23 07/11/23 History mcg (50,000 unit) capsule semaglutide 1 mg/dose (4 mg/3 mL) 1 mg subcut Q7D 05/05/23 07/11/23 History subcutaneous pen injector (Ozempic) testosterone 12.5 mg/1.25 gram per 2 pump transdermal DAILY 05/05/23 07/11/23 History pump actuation (1%) transdermal gel Allergies Allergy/AdvReac Type Severity Reaction Status Date / Time No Known Drug Allergies Allergy Verified 07/11/23 08:03 Exam Narrative: Exam Narrative: PHYSICAL EXAM General: Pleasant, conversant, NAD HEENT: Normocephalic, atraumatic, sclera white, EOMI, oral mucosa moist Cardiovascular: RRR, S1S2. No pitting edema Pulmonary: CTA bilaterally without rhonchi, rales, expiratory wheezes. No dyspnea Neurological: Alert, answering questions appropriately, cranial nerves intact, no focal findings Extremities: No gross joint deformity or swelling. Post operative dressing in place, dry. Neurovascularly intact Skin: Warm, dry. Bilateral lower extremity digits, specifically great toes, with significant callused, dry skin Const: Vital Signs, click to edit/add: Vital Signs - 24 hr 07/11/23 08:04 07/11/23 08:58 07/11/23 09:00 Temperature 97.9 F Pulse Rate 60 60 60 Respiratory Rate 16 16 16 Blood Pressure 160/89 H 147/90 H 157/84 H Pulse Oximetry 98 100 100 Oxygen Delivery Me thod Room Air Nasal Cannula Nasal Cannula Oxygen Flow Rate 2 2 07/11/23 09:05 Temperature Pulse Rate 60 Respiratory Rate 16 Blood Pressure 137/85 Pulse Oximetry 94 Oxygen Delivery Me thod Nasal Cannula Oxygen Flow Rate 2 Assessment and Plan Assessment and plan (1) Osteoarthritis of right knee: Problem comment: -POD#0 s/p RTKA, plan to return home with son -perioperative management, including pain management, per primary team, Orthopedic Surgery -PT, VTE PPX per Orthopedic Surgery (ASA 81mg bid) -encourage post op pulmonary hygiene given h/o bronchitis, PALOMO, tobacco use (recently quit) Status: Chronic (2) Type 2 diabetes mellitus: Problem comment: -A1c 5.2, 100# weight loss since starting Ozempic -Ozempic held for past week. Patient states he is done with his medication with no plan to resume it following discharge. -encourage diabetic diet. TID WM blood glucose. No sliding scale ordered -recommend outpatient Podiatry consult as discussed with patient Status: Acute (3) Atrial fibrillation: Problem comment: -most recent EKG shows NSR (reported since significant weight loss) -has been on ASA 325mg daily, unable to tolerate Eliquis, did not follow through with Zio holter -resume metoprolol upon discharge, currently bradycardic -telemetry post op -followed by Cardiology Status: Chronic (4) Heart failure with preserved ejection fraction: Problem comment: -monitor for fluid overload. Not currently on diuretic Status: Acute (5) Sleep apnea: Problem comment: -does not tolerate CPAP. per PCP need for new study following weight loss Status: Acute (6) Hypertension: Problem comment: -monitor post op. Resume home medications on discharge Status: Acute (7) Neuropathy: Problem comment: -resume gabapentin on discharge Status: Acute (8) BPH loc w urin obs/LUTS: Problem comment: -noncompliant with flomax Status: Acute (9) Tobacco abuse: Problem comment: -just started smoking for the 1st time ever in November 2022 as a crutch for weight loss and giving up alcohol use. Discussed importance of cessation for overall health as well as for healing, in setting of diabetes and peripheral neuropathy. Recommend outpatient podiatry consult. Status: Acute
--- NOTE | 2023-07-11 11:06 | P.ORPRC_ITS ---
Procedure Note Date of procedure: 07/11/23 Procedure: PREOPERATIVE DIAGNOSIS: 1. Right knee osteoarthritis, primary, severe POSTOPERATIVE DIAGNOSIS: 1. Right knee osteoarthritis, primary, severe PROCEDURE: 1. Right total knee arthroplasty SURGEON: Sergei Marinelli MD. CERTIFIED INDOOR ENVIRONMENTALIST: JONATHON Mays - Of note, a skilled certified medical assistant was critical for this case to aid in patient positioning, tissue retraction, limb manipulation/positioning, and closure. ANESTHESIA: Spinal anesthetic IMPLANTS: DePuy J&J all cemented TKA - Attune PS femur size 10, size 10 tibia, 5 poly spacer, 41mm patella TOURNIQUET: 90 min at 300 torr EBL: 50 ml COMPLICATIONS: None evident INDICATIONS: The patient is a pleasant 67-year-old male who has experienced severe right knee pain and difficulty bearing weight. Workup included x-rays which revealed severe osteoarthrosis in the knee. Given the deformity, the dysfunction, and the pain, as well as the failure of nonoperative management, recommendation was made for surgery. FINDINGS: Full-thickness chondral loss diffusely throughout the medial femoral condyle and medial tibial plateau as well as patellofemoral compartment. Significant lateral chondromalacia as well. Moderate effusion upon entering the joint. Large osteophytes diffusely in all 3 compartments. DESCRIPTION OF PROCEDURE: Following a thorough discussion of risks, benefits, and alternatives consent was obtained and the right knee was marked. The patient was brought to the operating room and placed supine on the operating table. Induction of anesthesia was undertaken. 3 g IV Ancef and 1 g tranexamic acid was administered within 1 hr of incision preoperatively. Proper time-out was performed identifying proper patient, site, procedure. The operative extremity was prepped and draped in the appropriate sterile fashion using ChloraPrep after the patient was positioned supine with all bony prominences well padded. A longitudinal, anterior, midline skin incision was made starting approximately 3cm proximal to the superior pole of the patella and advanced distal to the tibial tubercle. A median parapatellar arthrotomy was created. A medial subperiosteal sleeve was created with knife, mckinnon elevator and curved osteotome. The retropatellar fatpad was resected and the synovium in the suprapatellar pouch excised to visualize the anterior femoral cortex. Femoral preparation was performed via an intramedullary guide. Step drill allowed access into the femoral canal. The distal cutting guide was placed with 5? of valgus and 12 mm cut on the distal femur due to a 10-15 degree flexion contracture. Femur was sized using a posterior referencing guide in 3? of external rotation. This found have a best fit with the sizing noted above. The 4 in 1 cutting block was then placed, and the distal femur shaped accordingly. The box cut was then created and the trial implant inserted to confirm appropriate fit. We turned our attention to the proximal tibia. Extramedullary guide was utilized for cutting with the goal of being 90 degree cut from the mechanical axis of the tibia in the varus/valgus plane utilizing tibial crest as the primary alignment. Initially a 1 mm resection was performed from the medial tibial plateau. Ultimately, balancing was achieved in both flexion and extension in both varus and valgus. The knee was able to achieve full extension as well comfortably. The patella was initially measured and found have a thickness of 27 mm. It was resected back to approximately 17 mm. It was sized to be a best fit with as noted above. This was drilled, trial placed. All trials were placed and found to have an excellent stability and balance. At this stage, trial implants were removed, the knee was thoroughly irrigated with normal saline, and the cement was mixed. After irrigation, the knee was thoroughly dried, and cement placed, with the real tibial and femoral implants placed along with the patella. Trial poly spacer was placed and confirmed to have excellent range of motion and full extension, and the real poly spacer opened and inserted. All extra cement was removed, and a 3 min Betadine soak performed. Finally, a final irrigation round with normal saline was performed. Closure performed with 0 Vicryl and #0 Stratafix for the quad tendon/retinaculum. 2-0 Vicryl for the subcutaneous and 4-0 Stratafix for subcuticular closure. Dressings were applied and the patient was awoken from anesthesia after the tourniquet deflated and transferred the PACU in stable condition. A skilled certified medical assistant was critical for this case to aid in patient positioning, tissue retraction, bone exposure, limb manipulation/positioning, patient safety, and closure. PLAN: 1. Weight bear as tolerated operative extremity. 2. 23 hr perioperative antibiotics. 3. Ice. 4. PT/OT consults for ambulation assistance/mobility education. 5. Social work consult for discharge planning. 6. DVT prophylaxis with at SCDs, Randolph Davis, and aspirin twice daily.
--- NOTE | 2023-07-11 11:06 | W.PM.H&PU ---
History & Physical Update History & Physical Update H&P Reviewed and patient assessed: The following changes are noted below H&P Updates: Eliquis makes him ?sick?
--- NOTE | 2023-07-11 11:15 | W.ANESCHARGE ---
Anesthesia Charges Start Date/Time Anesthesia Start Date: 07/11/23 Anesthesia Start Time: 09:35 Stop Date/Time Anesthesia Stop Date: 07/11/23 Anesthesia Stop Time: 11:44
[2023-07-11] MEDS: LACTATED RINGERS 1000 ML 1,000 ML 75 ML IV (12:20)
[2023-07-11] MEDS: OXYCODONE 5 MG TABLET PO ×4 (14:00→21:57)
--- NOTE | 2023-07-11 15:42 | PC.NURSE ---
Pt arrived via hospital bed from PACU at 1215pm s/p RTKA with Dr. Marinelli. Hospitalist Madhuri Yu at bedside for evaluation of this post op patient. Please see initial assessment from PACU and frequent post op VS. Pt initially denied pain, then it was 2 of 10 when block began to wear off. Pt provided with 2 scheduled Tylenol ES and 2 oxycodone 5mg tablets for pain 3-4 out of 10 as premedication for upcoming therapy session. Pt did exercises with Slick and up to recliner with SBA of 1. Pt is 6 ft 6 inches tall, he declined the offer of a bed rural route carrier. No behaviors or dysphagia w/meds. Bed has knee lock on and bed alarm activated per fall prevention protocol. Pt has not voided since arrival to Med/Surg floor, teds and plexis off just prior to shift change. Pt advanced to regular diet. MS recovery patient who will d/c to own home with his brother and [id number] as transportation tomorrow. Report to Lizz Gardner RN for evening shift.
--- NOTE | 2023-07-11 15:47 | PC.SOCIAL ---
Discharge planning: Met with pt regarding discharge planning after surgery. Pt explained that he will be going home with his son and that he feels good about that plan. Pt will reach out to staff if anything changes and/or he needs resources, as far as discharge planning goes. No other social insurance analyst follow-up needed at this time.
[2023-07-11] MEDS: ASPIRIN 81 MG TABLET EC PO (21:56)
[2023-07-11] MEDS: SENNOSIDES 1 TAB TABLET 2 TAB PO (21:56)
--- NOTE | 2023-07-11 23:18 | PC.NURSE ---
VSS, RA. Right knee pain of 2-5- relief w/ PRN oxy, tylenol, and cryocuff. Tolerating regular diet, drinking well. Voided x3. Last BM 07/09/23- educated on narcotics and constipation. Up with Ax1 + gaitbelt & walker- walked in room, up in chair most of evening. PIV- SL'd. Will continue to monitor, follow POC, and keep pt and family updated. Lizz Perez RN
[2023-07-12 00:15] VITALS: BP 112/56; PULSE 77; PULSE 82; RESP 18; TEMP 37; O2SAT 98
[2023-07-12] MEDS: ACETAMINOPHEN 500 MG TABLET 1000 MG PO ×2 (02:25→08:23)
[2023-07-12] MEDS: OXYCODONE 5 MG TABLET PO ×3 (02:26→12:16)
[2023-07-12 02:30] VITALS: BP 126/88; PULSE 81; RESP 18; TEMP 36.7; O2SAT 97
--- NOTE | 2023-07-12 05:25 | PC.NURSE ---
Pt alert and oriented x3. Afebrile. Pt reports 5/10 pain in right knee, managed with cryo cuff and scheduled and PRN medications. Pt's right knee dressing is CDI. Pt is up SBA with walker gait belt, tolerating regular diet, and voiding. Pt slept intermittently through out night.
[2023-07-12 06:42] LABS: Hemoglobin* 14.4 gm/dL (13.5-17.5); Immature Granulocytes Abs Auto 0.09 K/uL (0.00-0.30); Lymphocytes Percent Auto 7.3 % (20-44); Mean Corpuscular HGB Conc 34 gm/dL (32-36); Mean Corpuscular Hemoglobin 31 pg (26-34); Mean Corpuscular Volume 90 fL (80-100); Monocytes Percent Auto 3.4 % (0.0-11.0); Neutrophils Percent Auto 88.3 % (42.0-72.0); Platelet Count* 220 K/uL (140-440); RDW Coefficient of Variation % 12.9 % (11.5-15.5); Red Blood Count 4.68 m/uL (4.30-5.90); White Blood Count* 9.06 K/uL (4.50-11.00)
[2023-07-12 06:53] LABS: Sodium* 135 mmol/L (135-149)
[2023-07-12 06:54] LABS: Potassium* 4.1 mmol/L (3.6-5.1)
[2023-07-12 06:57] LABS: Blood Urea Nitrogen* 10 mg/dL (7-30); Creatinine* 0.7 mg/dL (0.5-1.5); Est. Creatinine Clearance* 92.81; Estimated Glomerular Filt Rate 102 ml/min
[2023-07-12 06:59] LABS: Slide Review Reflex No
[2023-07-12 07:30] VITALS: BP 119/56; PULSE 86; RESP 18; TEMP 36.7; O2SAT 97
[2023-07-12] MEDS: ASPIRIN 81 MG TABLET EC PO (08:22)
[2023-07-12] MEDS: SENNOSIDES 1 TAB TABLET 2 TAB PO (08:22)
[2023-07-12] MEDS: CEFAZOLIN 2 GM in 0.9 % SODIUM CHLORIDE Mini-bag 100 ML IVPB (08:23)
--- NOTE | 2023-07-12 10:57 | P.ORPN_ITS ---
Subjective Subjective Date Seen: 07/12/23 Principal diagnosis: Status postop day 1 right total knee arthroplasty Interval history: Patient reports doing well. No acute events over night. No flatus to date. Pain managed with scheduled and PRN medications, ice. He reports pain was much worse yesterday, but far improved today. DVT prophylaxis: 81 mg aspirin by mouth twice daily, bilateral knee high Randolph stockings, SCDs, walking. Denies fevers, chills, aches, N/V, CP, SOB/HINOJOSA, or lightheadedness. Patient has had a recent over 100 lb intentional weight loss. History of AFib. Treating on his own accord with aspirin 325 mg. Programmer Analyst Consultant prescribed Eliquis , which makes patient sick to his stomach. Ortho Exam Narrative Exam Narrative: -Patient appears comfortable; no apparent acute distress -Alert and oriented times 3 -Operative knee mildly swollen; soft tissues supple; no ecchymosis; no erythematous streaking Warmth appropriate -Surgical dressing clean, dry, intact; no drainage -Bilateral calfs soft; no significant swelling, edema, tenderness, erythema, discoloration, warmth, or palpable cords -2+ DP/PT pulses, intact dermatomes and myotomes distally (5/5 strength) Const Vital Signs, click to edit/add: Vital Signs - 24 hr 07/11/23 11:39 07/11/23 11:45 07/11/23 11:50 Temperature 97.6 F Pulse Rate 50 L 51 L 50 L Pulse Rate [Pulse Oximeter] Respiratory Rate 12 14 14 Blood Pressure 113/78 120/76 121/79 Blood Pressure [Left Arm] Pulse Oximetry 98 96 98 Oxygen Delivery Method Room Air Room Air Room Air 07/11/23 11:55 07/11/23 12:00 07/11/23 12:05 Temperature Pulse Rate 52 L 48 L 48 L Pulse Rate [Pulse Oximeter] Respiratory Rate 16 16 14 Blood Pressure 121/96 H 128/85 128/80 Blood Pressure [Left Arm] Pulse Oximetry 16 L 96 96 Oxygen Delivery Method Room Air Room Air Room Air 07/11/23 12:11 07/11/23 12:18 07/11/23 12:30 Temperature 97.4 F L 96.2 F L 96.2 F L Pulse Rate 47 L 49 L Pulse Rate [Pulse Oximeter] 50 L Respiratory Rate 14 20 20 Blood Pressure 134/82 Blood Pressure [Left Arm] 142/77 H 134/75 Pulse Oximetry 98 99 Oxygen Delivery Method Room Air Room Air Room Air 07/11/23 12:45 07/11/23 13:00 07/11/23 13:15 Temperature 96.2 F L 96.4 F L Pulse Rate Pulse Rate [Pulse Oximeter] 50 L 48 L 54 L Respiratory Rate 20 20 20 Blood Pressure Blood Pressure [Left Arm] 133/80 127/95 H 128/85 Pulse Oximetry 99 97 96 Oxygen Delivery Method Room Air Room Air Room Air 07/11/23 13:30 07/11/23 14:00 07/11/23 15:00 Temperature Pulse Rate Pulse Rate [Pulse Oximeter] 54 L 70 Respiratory Rate 20 20 Blood Pressure Blood Pressure [Left Arm] 143/83 H 127/98 H Pulse Oximetry 99 97 96 Oxygen Delivery Method Room Air Room Air 07/11/23 15:00 07/11/23 15:00 07/11/23 16:00 Temperature Pulse Rate 92 Pulse Rate [Pulse Oximeter] 69 71 Respiratory Rate 16 16 Blood Pressure Blood Pressure [Left Arm] 128/80 130/85 Pulse Oximetry 99 98 Oxygen Delivery Method Room Air Room Air 07/11/23 18:00 07/12/23 00:15 07/12/23 00:15 Temperature Pulse Rate 82 Pulse Rate [Pulse Oximeter] 87 Respiratory Rate 16 Blood Pressure Blood Pressure [Left Arm] 133/91 H Pulse Oximetry 99 98 Oxygen Delivery Method Room Air 07/12/23 00:15 07/12/23 00:15 07/12/23 02:30 Temperature 98.6 F 98.1 F Pulse Rate Pulse Rate [Pulse Oximeter] 77 77 81 Respiratory Rate 18 18 Blood Pressure Blood Pressure [Left Arm] 112/56 L 126/88 Pulse Oximetry 98 97 Oxygen Delivery Method Room Air Room Air Assessment and Plan Assessment and plan (1) Osteoarthritis of right knee: Problem details: -POD#1 s/p RTKA, plan to return home with son -perioperative management, including pain management, per primary team, Orthopedic Surgery -PT, VTE PPX per Orthopedic Surgery (ASA 81mg bid) -encourage post op pulmonary hygiene given h/o bronchitis, PALOMO, tobacco use (recently quit) Status: Chronic (2) Type 2 diabetes mellitus: Problem details: -A1c 5.2, 100# weight loss since starting Ozempic -Ozempic held for past week. Patient states he is done with his medication with no plan to resume it following discharge. -encourage diabetic diet. TID WM blood glucose. No sliding scale ordered -recommend outpatient Podiatry consult as discussed with patient Status: Acute (3) Atrial fibrillation: Problem details: -most recent EKG shows NSR (reported since significant weight loss) -has been on ASA 325mg daily, unable to tolerate Eliquis, did not follow through with Zio holter -resume metoprolol upon discharge, currently bradycardic -telemetry post op -followed by Cardiology Status: Chronic (4) Heart failure with preserved ejection fraction: Problem details: -monitor for fluid overload. Not currently on diuretic Status: Acute (5) Sleep apnea: Problem details: -does not tolerate CPAP. per PCP need for new study following weight loss Status: Acute (6) Hypertension: Problem details: -monitor post op. Resume home medications on discharge Status: Acute (7) Neuropathy: Problem details: -resume gabapentin on discharge Status: Acute (8) BPH loc w urin obs/LUTS: Problem details: -noncompliant with flomax Status: Acute (9) Tobacco abuse: Problem details: -just started smoking for the 1st time ever in November 2022 as a crutch for weight loss and giving up alcohol use. Discussed importance of cessation for overall health as well as for healing, in setting of diabetes and peripheral neuropathy. Recommend outpatient podiatry consult. Status: Acute Plan - Complete 23 hour perioperative antibiotics. - PT/OT consult for education and assistance. - Social work consult for discharge planning - Prescribed analgesics as needed - DVT prophylaxis: 81 mg aspirin by mouth twice daily, bilateral knee high Randolph Hose stockings and SCDs. We again discussed the risks of large joint replacement surgery and DVT. He understands these and wishes to proceed with 81 mg aspirin by mouth twice daily for DVT prophylaxis. Encouraged him to discuss with his relocation commissioner in the future regarding resuming Eliquis. - Anticipation is for discharge to home with family 07/12/2023 if the patient remains medically stable, pain is controlled, and they are safe with mobilization.
[2023-07-12 12:43] VITALS: PULSE 83
--- NOTE | 2023-07-12 13:24 | PC.NURSE ---
Pt eval by Martín beltran PA, OT and PT this am. Please see eMar for meds provided. Pt verbalized understanding of d/c diagnosis, new prescriptions, home meds, f/up appt and sx to report urgently to MD. Discharged via w/c with personal belongings at 12:20 pm with son as transportation.
== END 2023-07-12 12:20 | disposition home or self-care (01) ==
LOC: OR 07:26 → MEDSURG 07:30
PROVIDERS: PCP Family Medicine; Visit Provider Orthopaedic Surgery Sports Medicine
PROC: (CPT 27447; principal; 2023-07-11 08:45)
DX: M17.11 Unilateral primary osteoarthritis, right knee (principal); G89.18 Other acute postprocedural pain; Z79.85 Long-term (current) use of injectable non-insulin antidiabetic drugs; I48.91 Unspecified atrial fibrillation; I11.0 Hypertensive heart disease with heart failure; I50.30 Unspecified diastolic (congestive) heart failure; G47.30 Sleep apnea, unspecified; F17.210 Nicotine dependence, cigarettes, uncomplicated; E11.42 Type 2 diabetes mellitus with diabetic polyneuropathy; N40.1 Benign prostatic hyperplasia with lower urinary tract symptoms; N13.8 Other obstructive and reflux uropathy
CPT/HCPCS: 27447; 1402; 36415; 64447; 64454; 73560; 76942; 82565; 82962; 84132; 84295; 84520; 85025; 97110; 97116; 97161; 97165; 97530; 97535; A9270; C1776; J0690; J1100; J2250; J2704; J2795; J3010; J7120

== ENCOUNTER 2023-07-18 11:57 | Observation (INO) | payer MEDICARE, OTHER, SELFPAY ==
[2023-07-18] VITALS (26 sets, daily range): BP systolic 83–139; BP diastolic 60–103; PULSE 68–146; RESP 12–18; TEMP 36.1–36.8; O2SAT 85–100; BMI 32.4
--- NOTE | 2023-07-18 14:51 | CRLHL7_ITS ---
For Patients: As a result of the Century Cures Act, medical imaging exams and procedure reports are released immediately into your electronic medical record. You may view this report before your referring provider. If you have questions, please contact your health care provider. Indication: Arrhythmia Technique: Portable AP chest radiograph, 2 images Comparison: 11/04/2022. Findings: Normal heart and mediastinum repeating a. Lungs and pleural spaces clear. No acute or aggressive osseous abnormality. Impression: No acute findings in the chest. Dictated by Yovanny Block MD @ 07/18/2023 5:25:56 PM (Electronically Signed)
--- NOTE | 2023-07-18 14:53 | ED_ITS ---
HPI - Dizziness General Time Seen by Provider: 14:53 Date Seen: 07/18/23 Chief Complaint: Dizziness/Vertigo Stated Complaint: Low BP post op 1 week Time Seen by Provider: 07/18/23 14:40 Source: patient and RN notes reviewed Mode of arrival: ambulatory Limitations: no limitations History of Present Illness HPI Narrative: Patient is a 67-year-old male seen in exam room 6, did have wait to be seen in the ER due to the volume and acuity. He has been feeling lightheaded and dizzy, particularly this morning and blood pressure was low. He did take his metoprolol this morning for rate suppression of atrial fibrillation. He has had history of paroxysmal atrial fibrillation. He had a right total knee arthroplasty on 07/11/2023. He had been on a 325 mg aspirin for his atrial fibrillation as he states he has tried Xarelto, Eliquis and Coumadin in does not tolerate them. He cannot feel his heart rate fast right now. He is sitting up on the edge of the bed when I am talking to him and his heart rate is in the 120s to 140s. He is feeling fine but notes if he would stand up that maybe he would feel dizzy and lightheaded. He is having no shortness of breath, no chest pain. Orthopedic notation has him on 81 mg aspirin twice a day for DVT prophylaxis. MD elicited complaint: dizziness and lightheadedness Related Data Home Medications Medication Instructions Recorded Confirmed ergocalciferol (vitamin D2) 1,250 1,250 mcg PO Q7D 05/05/23 07/11/23 mcg (50,000 unit) capsule semaglutide 1 mg/dose (4 mg/3 mL) 1 mg subcut Q7D 05/05/23 07/11/23 subcutaneous pen injector (Ozempic) testosterone 12.5 mg/1.25 gram per 2 pump transdermal DAILY 05/05/23 07/11/23 pump actuation (1%) transdermal gel Previous Rx's Medication Instructions Recorded albuterol sulfate 90 mcg/actuation 2 puff inhalation Q6H PRN 03/24/23 aerosol inhaler shortness of breath or wheezing #8.5 grams gabapentin 300 mg capsule 300 mg PO QHS #90 caps 03/24/23 (Neurontin) metoprolol succinate 50 mg 50 mg PO DAILY #90 tabs 08/10/23 tablet,extended release 24 hr tamsulosin 0.4 mg capsule (Flomax) 0.4 mg PO QHS #90 caps 06/28/23 acetaminophen 500 mg capsule 500 - 1,000 mg (1 - 2 x 500 mg) PO 07/12/23 Q6H PRN #100 caps aspirin 81 mg tablet,delayed 81 mg PO BID #60 tabs 07/12/23 release oxycodone 5 mg tablet 2.5 - 5 mg (0.5 - 1 x 5 mg) PO 07/12/23 Q4-6H PRN pain #42 tabs sennosides 8.6 mg-docusate sodium 1 - 4 tab-cap (1 - 4 x 8.6-50 mg) 07/12/23 50 mg tablet (Senna-S) PO BID PRN constipation #60 tabs Allergies Allergy/AdvReac Type Severity Reaction Status Date / Time No Known Drug Allergies Allergy Verified 07/18/23 12:16 Review of Systems Status of ROS: Reports: 6 or more systems reviewed and unremarkable except as noted in History and below [facility] Medical History Atrial fibrillation ?I48.91 - Unspecified atrial fibrillation (ICD-10) Sleep apnea ?G47.30 - Sleep apnea, unspecified (ICD-10) Low testosterone in male ?R79.89 - Other specified abnormal findings of blood chemistry (ICD-10) Osteoarthritis of left knee ?M17.12 - Unilateral primary osteoarthritis, left knee (ICD-10) DJD (degenerative joint disease) ?M19.90 - Unspecified osteoarthritis, unspecified site (ICD-10) Heart failure with preserved ejection fraction ?I50.30 - Unspecified diastolic (congestive) heart failure (ICD-10) Gynecomastia ?N62 - Hypertrophy of breast (ICD-10) Social History Smoking Status: Current every day smoker What tobacco products do you use: cigarettes Do you use any of these nicotine containing products: None How often do you have a drink containing alcohol: 2-4 times a month Alcohol type: beer How many standard drinks containing alcohol do you have on a typical day: 1 or 2 How often do you have six or more drinks on one occasion: Never AUDIT-C Alcohol total score: 2 Non-prescribed substance use: denies use Caffeine: Yes Exam Const: Vital Signs, click to edit/add: Vital Signs - 24 hr 07/18/23 12:10 07/18/23 14:42 07/18/23 14:50 Temperature 97 F L Pulse Rate Pulse Rate [Right Pulse Oximeter] 68 Pulse Rate [orthos tatic lying Pulse Oximeter] 102 H Pulse Rate [orthos tatic sitting Puls e Oximeter] 123 H Pulse Rate [orthos tatic standing Pul se Oximeter] 146 H Respiratory Rate 18 Blood Pressure Blood Pressure [Ri ght Upper Arm] 112/70 Blood Pressure [or thostatic lying Le ft Arm] 134/86 Blood Pressure [or thostatic sitting Left Arm] 134/86 Blood Pressure [or thostatic standing Left Arm] 83/60 L Pulse Oximetry 98 98 Oxygen Delivery Me thod Room Air 07/18/23 15:20 07/18/23 15:31 07/18/23 16:01 Temperature Pulse Rate 93 84 99 Pulse Rate [Right Pulse Oximeter] Pulse Rate [orthos tatic lying Pulse Oximeter] Pulse Rate [orthos tatic sitting Puls e Oximeter] Pulse Rate [orthos tatic standing Pul se Oximeter] Respiratory Rate 14 16 14 Blood Pressure 93/79 111/85 126/87 Blood Pressure [Ri ght Upper Arm] Blood Pressure [or thostatic lying Le ft Arm] Blood Pressure [or thostatic sitting Left Arm] Blood Pressure [or thostatic standing Left Arm] Pulse Oximetry 100 100 98 Oxygen Delivery Me thod 07/18/23 16:18 07/18/23 16:31 07/18/23 17:02 Temperature Pulse Rate 78 78 77 Pulse Rate [Right Pulse Oximeter] Pulse Rate [orthos tatic lying Pulse Oximeter] Pulse Rate [orthos tatic sitting Puls e Oximeter] Pulse Rate [orthos tatic standing Pul se Oximeter] Respiratory Rate 16 14 12 Blood Pressure 129/80 135/89 106/82 Blood Pressure [Ri ght Upper Arm] Blood Pressure [or thostatic lying Le ft Arm] Blood Pressure [or thostatic sitting Left Arm] Blood Pressure [or thostatic standing Left Arm] Pulse Oximetry 97 96 97 Oxygen Delivery Me thod 07/18/23 17:31 07/18/23 18:31 07/18/23 19:02 Temperature Pulse Rate 90 83 95 Pulse Rate [Right Pulse Oximeter] Pulse Rate [orthos tatic lying Pulse Oximeter] Pulse Rate [orthos tatic sitting Puls e Oximeter] Pulse Rate [orthos tatic standing Pul se Oximeter] Respiratory Rate 12 14 16 Blood Pressure 129/90 H 125/82 128/93 H Blood Pressure [Ri ght Upper Arm] Blood Pressure [or thostatic lying Le ft Arm] Blood Pressure [or thostatic sitting Left Arm] Blood Pressure [or thostatic standing Left Arm] Pulse Oximetry 96 97 99 Oxygen Delivery Me thod 07/18/23 19:32 07/18/23 20:02 Temperature Pulse Rate 89 75 Pulse Rate [Right Pulse Oximeter] Pulse Rate [orthos tatic lying Pulse Oximeter] Pulse Rate [orthos tatic sitting Puls e Oximeter] Pulse Rate [orthos tatic standing Pul se Oximeter] Respiratory Rate 16 14 Blood Pressure 130/99 H 125/99 H Blood Pressure [Ri ght Upper Arm] Blood Pressure [or thostatic lying Le ft Arm] Blood Pressure [or thostatic sitting Left Arm] Blood Pressure [or thostatic standing Left Arm] Pulse Oximetry 96 99 Oxygen Delivery Me thod This is a 67-year-old gentleman sitting up on the edge of the bed, is alert, interactive, no apparent distress, systolic blood pressure is 130 but heart rate after coming back into the exam room is 120s to 140s, looks to be atrial fibrillation. Sclera clear, conjugate gaze, pupils equal round reactive. Symmetrical facial function, able speak in complete sentences. Neck is supple, no jugular venous distension, no thyromegaly masses or nodules, no cervical adenopathy. Lungs are clear, good air entry, wheeze or crackles. CV fast and irregular, do not hear any murmur. Abdomen is soft, nontender. He has below the knee Randolph hose on, has definite swelling about the right knee with a clean bandage going down the center of the knee. Some mild warmth to the knee, seems like routine postoperative changes. Right lower extremity has a bit more edema, left has none. His right leg changes are not unexpected postsurgically. Documenting provider has reviewed patient's vital signs: yes Course Course ED Course: Patient will be on cardiac monitoring, have IV placed, will give him a bolus of fluids as he does not seem to be in any fluid overload. Will likely give him 5 mg IV metoprolol seen his current rate. He seems to have blood pressure support to give some IV rate control. He is not a candidate for cardioversion in my opinion, really cannot feel his elevated heart rate at this time as I am talking to him. This makes me certain that this patient is not completely aware of when he is in this rhythm disturbance. I would consider him to be a high stroke risk if done with out appropriate anticoagulation. Will get appropriate labs, look at a chest x-ray as well. Reevaluation(s) Time of Reevaluation #1: 16:07 Reevaluation #1: Patient is resting, his IV fluids are not hooked up, did tell nursing staff about this. His heart rate is in the 80s, can still see that he is in atrial fibrillation on the monitor. Still has a good blood pressure. Time of Reevaluation #2: 17:44 Reevaluation #2: Patient was not on cardiac monitoring when I went in, found 1 of his leads to be off, did replace it. He is still in atrial fibrillation, rate in the 80s but he is at rest. Reviewed that his D-dimer is elevated, will be obtaining chest CT PE protocol and bilateral lower extremity ultrasounds. He likely will need hospitalization overnight to ensure adequate rate control, he was 120s to 140s when he 1st came in back to the room. Did review with him the rationale for no cardioversion, his stroke risk with that given that he is not anticoagulated, really has no idea when he went into this since surgery. We did review that he potentially could have been going in and out of this at night and other times at home given that he really had no sense of his heart rate being elevated when I was talking to him. Time of Reevaluation #3: 20:10 Reevaluation #3: Reviewed with patient there is no evidence of blood clot or pulmonary embolus. His heart rate was in the 80s, still in atrial fibrillation on the monitor but as soon as I talked to many sits up, his heart rate did jump up to 104-113 range. Reviewed with him that hospitalization was for ensuring that his heart rate is controlled, that we have adequate medication management. Reviewed with him it is extremely difficult to do outpatient. We would certainly recommend anticoagulation, will let him talk to the hospitalist further about this. Will give a dose of oral metoprolol 25 mg immediate release at this time. Did review on the CT that he has a 4.4 cm ascending thoracic aortic aneurysm. We reviewed smoking cessation is 1 of the most important things, control of blood pressure and lipids. He will need outpatient follow-up with a specialist on this. Consultations Consultation #1: Have reviewed with the hospitalist Dr. Bangura, he accepts the patient. Time: 20:14 Vital Signs Vital signs: Initial Vital Signs Temperature 97 F L 07/18/23 12:10 Temperature Source Temporal Artery Scan 07/18/23 12:10 Pulse Rate 68 07/18/23 12:10 Pulse Rhythm Irregular 07/18/23 12:10 Respiratory Rate 18 07/18/23 12:10 Blood Pressure 112/70 07/18/23 12:10 Blood Pressure Mean 84 07/18/23 12:10 Blood Pressure Position Sitting 07/18/23 12:10 Pulse Oximetry 98 07/18/23 12:10 Oxygen Delivery Method Room Air 07/18/23 12:10 Vital Signs Temperature 97 F L 07/18/23 12:10 Pulse Rate 68 07/18/23 12:10 Respiratory Rate 18 07/18/23 12:10 Blood Pressure 112/70 07/18/23 12:10 Pulse Oximetry 98 07/18/23 12:10 Oxygen Delivery Method Room Air 07/18/23 12:10 Temperature 97 F L 07/18/23 12:10 Pulse Rate 75 07/18/23 20:02 Respiratory Rate 14 07/18/23 20:02 Blood Pressure 125/99 H 07/18/23 20:02 Pulse Oximetry 99 07/18/23 20:02 Oxygen Delivery Method Room Air 07/18/23 12:10 Medications Administered Medications: Discontinued Medications Generic Name Dose Route Start Last Admin Trade Name Freq PRN Reason Stop Dose Admin Sodium Chloride 1,000 mls @ 1,000 mls/hr 07/18/23 14:59 07/18/23 17:10 0.9 % Sodium Chloride 1000 Ml IV 07/18/23 15:58 Infused .Q1H SLAVA Infusion Metoprolol Tartrate 5 mg 07/18/23 14:59 07/18/23 16:18 Metoprolol Tartrate 1 Mg/Ml Inj IVP 07/18/23 15:00 5 mg ONCE ONE Administration MDM - Dizziness Lab Data Attestation: I reviewed the patient's lab results. Labs: Lab Results 07/18/23 07/18/23 07/18/23 Range/Units 14:48 15:40 15:40 WBC 7.37 (4.50-11.00) K/uL RBC 4.95 (4.30-5.90) m/uL Hgb 15.3 (13.5-17.5) gm/dL Hct 45.1 (37.0-53.0) % MCV 91 (80-100) fL MCH 31 (26-34) pg MCHC 34 (32-36) gm/dL RDW Coeff of Leni 13.4 (11.5-15.5) % Plt Count 318 (140-440) K/uL Neut % (Auto) 64.2 (42.0-72.0) % Lymph % (Auto) 27.3 (20-44) % [place] % (Auto) 5.3 (0.0-11.0) % Eos % (Auto) 2.8 (0.0-7.0) % Baso % (Auto) 0.3 (0.0-3.0) % Neut # (Auto) 4.73 (1.7-7.0) K/uL Lymph # (Auto) 2.01 (0.90-2.90) K/uL [place] # (Auto) 0.40 (0.00-0.90) K/UL Eos # (Auto) 0.21 (0.00-0.50) K/uL Baso # (Auto) 0.02 (0.00-0.30) K/uL Abs Immat Gran (auto) 0.01 (0.00-0.30) K/uL Imm/Tot Granulo (auto) 0.1 % D-Dimer Quant (PE/DVT) 1.13 H (0.00-0.50) ug/ml Sodium 139 (135-149) mmol/L Potassium 4.5 (3.6-5.1) mmol/L Chloride 109 (96-114) mmol/L Carbon Dioxide 25 (20-32) mmol/L Anion Gap 5 L (7-15) mEq/L BUN 18 (7-30) mg/dL Creatinine 1.0 (0.5-1.5) mg/dL Estimated GFR 84 ml/min Glucose 134 H (60-115) mg/dL Lactate 2.8 H (0.5-1.9) mmol/L Calcium 9.2 (8.4-10.6) mg/dL Magnesium 2.1 Cancelled (1.5-2.6) mg/dL Total Bilirubin 1.4 (0.1-1.5) mg/dL AST 26 (12-35) U/L ALT 30 (4-50) U/L Alkaline Phosphatase 59 (40-150) U/L NT-Pro-B Natriuret Pep 837 pg/mL Total Protein (6.0-8.3) g/dL Albumin (3.3-5.0) g/dL POC Troponin I (0.01-0.04) ng/ml 07/18/23 Range/Units 15:40 WBC (4.50-11.00) K/uL RBC (4.30-5.90) m/uL Hgb (13.5-17.5) gm/dL Hct (37.0-53.0) % MCV (80-100) fL MCH (26-34) pg MCHC (32-36) gm/dL RDW Coeff of Leni (11.5-15.5) % Plt Count (140-440) K/uL Neut % (Auto) (42.0-72.0) % Lymph % (Auto) (20-44) % [place] % (Auto) (0.0-11.0) % Eos % (Auto) (0.0-7.0) % Baso % (Auto) (0.0-3.0) % Neut # (Auto) (1.7-7.0) K/uL Lymph # (Auto) (0.90-2.90) K/uL [place] # (Auto) (0.00-0.90) K/UL Eos # (Auto) (0.00-0.50) K/uL Baso # (Auto) (0.00-0.30) K/uL Abs Immat Gran (auto) (0.00-0.30) K/uL Imm/Tot Granulo (auto) % D-Dimer Quant (PE/DVT) (0.00-0.50) ug/ml Sodium (135-149) mmol/L Potassium (3.6-5.1) mmol/L Chloride (96-114) mmol/L Carbon Dioxide (20-32) mmol/L Anion Gap (7-15) mEq/L BUN (7-30) mg/dL Creatinine (0.5-1.5) mg/dL Estimated GFR ml/min Glucose (60-115) mg/dL Lactate (0.5-1.9) mmol/L Calcium (8.4-10.6) mg/dL Magnesium (1.5-2.6) mg/dL Total Bilirubin (0.1-1.5) mg/dL AST (12-35) U/L ALT (4-50) U/L Alkaline Phosphatase (40-150) U/L NT-Pro-B Natriuret Pep Cancelled pg/mL Total Protein 6.9 (6.0-8.3) g/dL Albumin 3.9 (3.3-5.0) g/dL POC Troponin I 0.00 L (0.01-0.04) ng/ml Imaging Data Chest x-ray: Attestation: I have reviewed the pertinent imaging results. Radiologist's impression: Patient: DANIEL GUERRERO Facility:?[facility] Patient ID:?[id number] Site Patient ID:?[id number] Site :?1955 Study:?XRay Chest 1 VIEW PORTABLE-07/18/2023 4:00:35 PM Ordering Physician:Lisa España Final Report: Indication: Arrhythmia Technique: Portable AP chest radiograph, 2 images Comparison: 11/04/2022. Findings: Normal heart and mediastinum repeating a. Lungs and pleural spaces clear. No acute or aggressive osseous abnormality. Impression: No acute findings in the chest. Dictated by Yovanny Block MD @ 07/18/2023 5:25:56 PM (Electronic Signature) CT scan - chest: Attestation: I have reviewed the pertinent imaging results. Radiologist's impression: Patient: DANIEL GUERRERO Facility:?[facility] Patient ID:?[id number] Site Patient ID:?[id number]. Site :?1955 Study:?CT Chest Angio PE W/ISOVUE 370 95CC-07/18/2023 6:12:54 PM Ordering Physician:Lisa España Final Report: INDICATION: Elevated D-dimer TECHNIQUE: CT chest was acquired with IV contrast. 95 mL Isovue 370 COMPARISON: None FINDINGS: Cardiovascular structures: Enlarged ascending thoracic aorta measuring 4.4 centimeters. Heart is enlarged. No pulmonary emboli. Mediastinum and batool: No mass or adenopathy. Lungs: Bilateral bronchial wall thickening. Lungs are otherwise clear Pleura and pericardium: No effusions. Chest wall and axilla: No mass or adenopathy. Gynecomastia. Bones: No significant findings. Upper abdomen: Unremarkable. IMPRESSION: 1. No pulmonary emboli. 4.4 centimeter ascending thoracic aortic aneurysm. 2. Bilateral bronchial wall thickening nonspecific but could be seen with bronchitis. Please note that all CT scans at this facility use dose modulation, iterative reconstruction, and/or weight-based dosing when appropriate to reduce radiation dose to as low as reasonably achievable. Dictated by Brooke Cordova MD @ 07/18/2023 8:01:45 PM (Electronic Signature) Venous US: My impression: Preliminary report per the ux engineer is negative for DVT, awaiting radiology over-read. ECG Data Attestation: I personally reviewed and interpreted this ECG as follows: (No atr ial fibrillation with RVR, 103 beats per minute on the EKG. Nonspecific ST and T-wave changes, no definitive ischemia. QT corrected 403 milliseconds.) ECG interpretation date: 07/18/23 ECG interpretation time: 15:08 Critical Care Time Critical Care Time Critical Care Time: Yes Attestation: The patient required my highest level preparedness to intervene emergently and I personally spent this critical care time directly and personally managing the patient. This critical care time included: Obtaining a history; Examining the patient; Pulse oximetry; Ordering and reviewing of studies; Arranging urgent treatment with development of a management plan; Evaluation of patients response to treatment; Frequent reassessment discussions with other providers. This critical care time was performed to assess and manage the high probability of imminent life-threatening deterioration that could result in multiorgan failure. It was exclusive of separate billable procedures and treating other patients and teaching time. Total Critical Care Time in Minutes: 30 Discharge Plan Discharge Clinical Impression: Atrial fibrillation with rapid ventricular response Patient Disposition: Admitted As Observation Prescriptions: No Action metoprolol succinate 50 mg tablet extended release 24 hr 50 mg PO DAILY Qty: 90 3RF albuterol sulfate 90 mcg/actuation HFA aerosol inhaler 2 puff inhalation Q6H PRN (Reason: shortness of breath or wheezing) Qty: 8.5 2RF gabapentin [Neurontin] 300 mg capsule 300 mg PO QHS Qty: 90 1RF Ozempic 1 mg/dose (4 mg/3 mL) pen injector 1 mg subcut Q7D testosterone 12.5 mg/ 1.25 gram (1 %) gel in metered-dose pump 2 pump transdermal DAILY ergocalciferol (vitamin D2) 1,250 mcg (50,000 unit) capsule 1,250 mcg PO Q7D tamsulosin [Flomax] 0.4 mg capsule 0.4 mg PO QHS Qty: 90 2RF sennosides-docusate sodium [Senna-S] 8.6-50 mg tablet 1 - 4 tab-cap PO BID PRN (Reason: constipation) Qty: 60 0RF Rx Instructions: Hold medication if experiencing loose stools. aspirin 81 mg tablet,delayed release (DR/EC) 81 mg PO BID Qty: 60 0RF Rx Instructions: Medication to help prevent blood clots postoperatively; take TWICE daily. acetaminophen 500 mg capsule 500 - 1,000 mg PO Q6H MDD 4000mg PRNQty: 100 0RF oxycodone 5 mg tablet 2.5 - 5 mg PO Q4-6H MDD 6 PRN (Reason: pain) Qty: 42 0RF Rx Instructions: Take as needed for postop pain: 2.5mg mild pain, 5mg moderate-severe pain; w jacek as tolerated. Follow Up/Referrals: Leonid Díaz MD [Primary Care Provider] -
[2023-07-18 15:56] LABS: Lactate* 2.8 mmol/L (0.5-1.9)
[2023-07-18 16:04] LABS: Basophils Absolute Auto 0.02 K/uL (0.00-0.30); Basophils Percent Auto 0.3 % (0.0-3.0); Eosinophils Absolute Auto 0.21 K/uL (0.00-0.50); Eosinophils Percent Auto 2.8 % (0.0-7.0); Hematocrit 45.1 % (37.0-53.0); Hemoglobin* 15.3 gm/dL (13.5-17.5); Immature Granulocytes Abs Auto 0.01 K/uL (0.00-0.30); Immature Granulocytes Pct Auto 0.1 %; Lymphocytes Absolute Auto 2.01 K/uL (0.90-2.90); Lymphocytes Percent Auto 27.3 % (20-44); Mean Corpuscular HGB Conc 34 gm/dL (32-36); Mean Corpuscular Hemoglobin 31 pg (26-34); Mean Corpuscular Volume 91 fL (80-100); Monocytes Percent Auto 5.3 % (0.0-11.0); Neutrophils Absolute Auto 4.73 K/uL (1.7-7.0); Neutrophils Percent Auto 64.2 % (42.0-72.0); Platelet Count* 318 K/uL (140-440); RDW Coefficient of Variation % 13.4 % (11.5-15.5); Red Blood Count 4.95 m/uL (4.30-5.90); White Blood Count* 7.37 K/uL (4.50-11.00)
[2023-07-18] MEDS: 0.9 % SODIUM CHLORIDE 1000 ml 1,000 ML IV (16:10)
[2023-07-18 16:15] LABS: Slide Review Reflex No
[2023-07-18 16:16] LABS: Albumin* 3.9 g/dL (3.3-5.0)
[2023-07-18 16:17] LABS: Chloride* 109 mmol/L (96-114); Potassium* 4.5 mmol/L (3.6-5.1); Sodium* 139 mmol/L (135-149)
[2023-07-18] MEDS: METOPROLOL TARTRATE 1 MG/ML inj 5 MG IVP (16:18)
[2023-07-18 16:19] LABS: Anion Gap 5 mEq/L (7-15); Aspartate Amino Transferase* 26 U/L (12-35); Bilirubin Total* 1.4 mg/dL (0.1-1.5); Carbon Dioxide* 25 mmol/L (20-32); Estimated Glomerular Filt Rate 84 ml/min; Total Protein* 6.9 g/dL (6.0-8.3)
[2023-07-18 16:20] LABS: Alanine Aminotransferase* 30 U/L (4-50); Alkaline Phosphatase* 59 U/L (40-150); Blood Urea Nitrogen* 18 mg/dL (7-30); Calcium* 9.2 mg/dL (8.4-10.6); Glucose* 134 mg/dL (60-115); Magnesium* 2.1 mg/dL (1.5-2.6)
[2023-07-18 16:29] LABS: NT Pro B Type NatriureticPept* 837 pg/mL
[2023-07-18 16:39] LABS: D Dimer Quantitative* 1.13 ug/ml (0.00-0.50)
--- NOTE | 2023-07-18 17:36 | CRLHL7_ITS ---
For Patients: As a result of the Century Cures Act, medical imaging exams and procedure reports are released immediately into your electronic medical record. You may view this report before your referring provider. If you have questions, please contact your health care provider. INDICATION: Elevated D-dimer TECHNIQUE: CT chest was acquired with IV contrast. 95 mL Isovue 370 COMPARISON: None FINDINGS: Cardiovascular structures: Enlarged ascending thoracic aorta measuring 4.4 centimeters. Heart is enlarged. No pulmonary emboli. Mediastinum and batool: No mass or adenopathy. Lungs: Bilateral bronchial wall thickening. Lungs are otherwise clear Pleura and pericardium: No effusions. Chest wall and axilla: No mass or adenopathy. Gynecomastia. Bones: No significant findings. Upper abdomen: Unremarkable. IMPRESSION: 1. No pulmonary emboli. 4.4 centimeter ascending thoracic aortic aneurysm. 2. Bilateral bronchial wall thickening nonspecific but could be seen with bronchitis. Please note that all CT scans at this facility use dose modulation, iterative reconstruction, and/or weight-based dosing when appropriate to reduce radiation dose to as low as reasonably achievable. Dictated by Brooke Cordova MD @ 07/18/2023 8:01:45 PM (Electronically Signed)
--- NOTE | 2023-07-18 17:36 | CRLHL7_ITS ---
For Patients: As a result of the Century Cures Act, medical imaging exams and procedure reports are released immediately into your electronic medical record. You may view this report before your referring provider. If you have questions, please contact your health care provider. INDICATION: Leg pain and swelling post total knee arthroplasty. Elevated D-dimer. TECHNIQUE: Ultrasound venous duplex bilateral lower extremity. Compression venous exam was performed using bradley-scale, color Doppler, and spectral Doppler analysis. COMPARISON: None. FINDINGS: Deep veins: Sonographic imaging demonstrates the bilateral common femoral, deep femoral, superficial femoral, popliteal, peroneal, and posterior tibial veins to be fully compressible with normal color Doppler blood flow. Superficial veins: Greater saphenous vein is fully compressible. No popliteal cyst. IMPRESSION: Normal bilateral lower extremity venous ultrasound, no sign of deep venous thrombosis. Dictated by Juan David Bowman MD @ 07/18/2023 8:46:32 PM (Electronically Signed)
[2023-07-18] MEDS: METOPROLOL TARTRATE 25 MG TABLET PO (20:47)
--- NOTE | 2023-07-18 21:19 | ED.NURSE ---
nurse to nurse report given to sharda MARCOS. at [id number]. patient being admitted to room 277
[2023-07-18] MEDS: GABAPENTIN 300 MG CAPSULE PO (22:38)
[2023-07-18] MEDS: APIXABAN 5 MG TABLET 2.5 MG PO (22:39)
[2023-07-18] MEDS: TAMSULOSIN HCL 0.4 MG CAPSULE PO (22:39)
--- NOTE | 2023-07-18 22:42 | PM.IMHP1 ---
Hospitalist- H&P: DARSHAN History of Present Illness Date Seen: 07/18/23 Chief complaint: Atrial fibrillation with RVR Narrative: Salinas Meza is a 67 year old male underwent an elective right total knee arthroplasty on 07/11/[address] Sergei Marinelli, [facility], [place], [place]. Reportedly on his own accord he he decided to stop his metoprolol succinate 4-5 days prior to his surgery. He states he did well until 1 day after returning home from his surgery when he noticed that he was having symptoms that made him think he might be having atrial fibrillation with rapid ventricular response. It is unclear to me if he restarted his metoprolol succinate at that time, he made it seemed as though he probably did. It is also unclear to me why he did not do anything else until today when he was feeling lightheaded and dizzy and he decided to call his orthopedic surgeon who recommended he go to the emergency department for further assessment and intervention. When he 1st presented to the emergency department for assessment today, the patient's vital signs were entirely normal. Heart rate was 68 beats per minute. There was a long wait in the emergency department and patient opted to leave the emergency department. He came back later on, and on his return his heart rate was around 120 to 140. On further assessment it was apparent that the patient was in AFib RVR. Patient was loaded with IV and oral metoprolol. Heart rate slowed down to 80-100 when at rest. Any activity and his heart rate would go into the 110-120 range. At this juncture the physician in the emergency department opted to contact me and arrange for patient to be admitted to the hospital for additional intervention and monitoring. Patient is known to have a history of paroxysmal and persistent atrial fibrillation. Has followed with Cardiology over the years for the same. It is unclear if the patient is entirely aware of when he is in atrial fibrillation or not. At times he says he thinks he is when in fact he is, and other times he says he think he is he is when he in fact is not. Other times he has no idea that he is in AFib with rapid ventricular response. Thus when he requests that we DC cardiovert him today we make it very clear to him that it is not appropriate and in fact it would be dangerous for us to do so unless the patient was in dire straits, with his life in jeopardy, which he is not. Thus discussion is undertaken in regard to better rate control and initiation of anticoagulation. Historically the patient has had symptoms which he has ascribed to be related to various anticoagulants he has attempted in the past including warfarin, rivaroxaban, and more recently apixaban. These various symptoms which he has ascribed to anticoagulants have included low blood pressure, near-syncope, and nausea. Presently he is on a prescription of aspirin 81 mg twice daily status post elective right total knee arthroplasty. He is on no other antithrombotics. He is currently on no anticoagulants. The last anticoagulant that he was on was apixaban which he was taking at 5 mg twice daily. He tells me he still has that prescription at home. Review of Systems Status of ROS: Reports: 10 or more systems reviewed and unremarkable except as noted in History and below Narrative: Denies chest heaviness, pressure, tightness, or pain. Denies syncope or near-syncope. Did have an episode of lightheadedness earlier today which prompted him to call for direction on what to do, which ultimately landed him in our emergency department specified above. Denies nausea or vomiting. Denies dyspnea at rest, paroxysmal nocturnal dyspnea, orthopnea. Denies cough. Denies dependent edema. Has followed with Cardiology over the years. Most recent echocardiogram he had done was a transthoracic echocardiogram undertaken on 12/01/2022 which demonstrated the following findings: 1. Normal LV chamber size, moderately increased wall thickness, normal global systolic function, EF of 72%. 2. Normal RV cavity size and systolic function. 3. Normal left atrial size. 4. Sclerotic aortic valve with no stenosis and trivial regurgitation. 5. Mitral valve sclerosis with trace mitral regurgitation. 6. Dilated ascending aorta with a maximum diameter of 4.2 cm. 7. Dilated aortic sinus with a maximum diameter of 4.2 cm. 8. No pericardial effusion. Last photograph editor whom he saw was Dr. Boateng on 04/15/2023. He mentions that the patient has been off of amiodarone and maintaining sinus rhythm. Recommends patient continue on his metoprolol succinate at 50 mg daily. Recommends initiation of CPAP therapy. Recommends resumption of apixaban for stroke prevention. Recommends that if patient does desire to discontinue apixaban that he will need to have a Zio patch assessment before making that determination. Determine is no contraindication to proceed with elective total knee arthroplasty. Recommends holding the apixaban around the time of surgery but restarting it afterward. Consider consultation with electrophysiology if warranted in the future. As suggested above patient not only stop the metoprolol XL but also stopped his apixaban. Reportedly historically patient had been on amiodarone to maintain normal sinus rhythm. Has been off the amiodarone for some time. No recent fevers, rigors, diaphoresis. Denies any other acute illness. Denies dysuria, urgency, frequency, hematuria. Denies diarrhea or constipation. He quit smoking prior to his recent elective total knee arthroplasty. Tells me that he started smoking in November of 2022 as a part of his effort to lose weight. He wanted to lose a lot a weight so can have this elective total knee arthroplasty. He tells me that over a 5 month period of time starting in early November he lost a total of 120 lb. He attempted to lose weight through diet and other means. Before starting his diet he was weighing 380 lb. He tells me his most recent weight is around 280 lb. Has not been using his CPAP machine. Does not monitor his blood sugars. [facility] Medical History Atrial fibrillation ?I48.91 - Unspecified atrial fibrillation (ICD-10) Sleep apnea ?G47.30 - Sleep apnea, unspecified (ICD-10) Low testosterone in male ?R79.89 - Other specified abnormal findings of blood chemistry (ICD-10) Osteoarthritis of left knee ?M17.12 - Unilateral primary osteoarthritis, left knee (ICD-10) DJD (degenerative joint disease) ?M19.90 - Unspecified osteoarthritis, unspecified site (ICD-10) Heart failure with preserved ejection fraction ?I50.30 - Unspecified diastolic (congestive) heart failure (ICD-10) Gynecomastia ?N62 - Hypertrophy of breast (ICD-10) Social History Smoking Status: Current every day smoker What tobacco products do you use: cigarettes Do you use any of these nicotine containing products: None How often do you have a drink containing alcohol: 2-4 times a month Alcohol type: beer How many standard drinks containing alcohol do you have on a typical day: 1 or 2 How often do you have six or more drinks on one occasion: Never AUDIT-C Alcohol total score: 2 Non-prescribed substance use: denies use Caffeine: Yes Meds Home Medications and Allergies Home Medications Medication Instructions Recorded Confirmed Type ergocalciferol (vitamin D2) 1,250 1,250 mcg PO Q7D 05/05/23 07/11/23 History mcg (50,000 unit) capsule semaglutide 1 mg/dose (4 mg/3 mL) 1 mg subcut Q7D 05/05/23 07/11/23 History subcutaneous pen injector (Ozempic) testosterone 12.5 mg/1.25 gram per 2 pump transdermal DAILY 05/05/23 07/11/23 History pump actuation (1%) transdermal gel Allergies Allergy/AdvReac Type Severity Reaction Status Date / Time No Known Drug Allergies Allergy Verified 07/18/23 12:16 Exam Narrative: Exam Narrative: I 1st examined him in the emergency department. Appears comfortable and in no acute distress sitting on the exam table. Vision and hearing are grossly normal. Alert and oriented to self, place, time, situation. Friendly, articulate, cooperative. Likes to talk. No icterus or jaundice. Normal tympanic membranes. Midline nasal septum. Dentition in good repair. Oropharynx benign. Mallampati class 4 airway. Neck is full. Midline trachea. No JVD or hepatojugular reflux. No carotid bruits. Lungs are clear to auscultation without wheezing, rhonchi, or rales. Chest wall excursions are full. Heart tones with chaotic rhythm but normal S1-S2. Very soft systolic murmur. Abdomen with active bowel sounds, soft, nontender. Extremities without edema. Moves all 4 extremities. Skin is warm, dry, intact. Const: Vital Signs, click to edit/add: Vital Signs - 24 hr 07/18/23 12:10 07/18/23 14:42 07/18/23 14:50 Temperature 97 F L Pulse Rate Pulse Rate [Right Pulse Oximeter] 68 Pulse Rate [orthos tatic lying Pulse Oximeter] 102 H Pulse Rate [orthos tatic sitting Puls e Oximeter] 123 H Pulse Rate [orthos tatic standing Pul se Oximeter] 146 H Respiratory Rate 18 Blood Pressure Blood Pressure [Ri ght Upper Arm] 112/70 Blood Pressure [or thostatic lying Le ft Arm] 134/86 Blood Pressure [or thostatic sitting Left Arm] 134/86 Blood Pressure [or thostatic standing Left Arm] 83/60 L Pulse Oximetry 98 98 Oxygen Delivery Me thod Room Air 07/18/23 15:20 07/18/23 15:31 07/18/23 16:01 Temperature Pulse Rate 93 84 99 Pulse Rate [Right Pulse Oximeter] Pulse Rate [orthos tatic lying Pulse Oximeter] Pulse Rate [orthos tatic sitting Puls e Oximeter] Pulse Rate [orthos tatic standing Pul se Oximeter] Respiratory Rate 14 16 14 Blood Pressure 93/79 111/85 126/87 Blood Pressure [Ri ght Upper Arm] Blood Pressure [or thostatic lying Le ft Arm] Blood Pressure [or thostatic sitting Left Arm] Blood Pressure [or thostatic standing Left Arm] Pulse Oximetry 100 100 98 Oxygen Delivery Me thod 07/18/23 16:18 07/18/23 16:31 07/18/23 17:02 Temperature Pulse Rate 78 78 77 Pulse Rate [Right Pulse Oximeter] Pulse Rate [orthos tatic lying Pulse Oximeter] Pulse Rate [orthos tatic sitting Puls e Oximeter] Pulse Rate [orthos tatic standing Pul se Oximeter] Respiratory Rate 16 14 12 Blood Pressure 129/80 135/89 106/82 Blood Pressure [Ri ght Upper Arm] Blood Pressure [or thostatic lying Le ft Arm] Blood Pressure [or thostatic sitting Left Arm] Blood Pressure [or thostatic standing Left Arm] Pulse Oximetry 97 96 97 Oxygen Delivery Me thod 07/18/23 17:31 07/18/23 18:31 07/18/23 19:02 Temperature Pulse Rate 90 83 95 Pulse Rate [Right Pulse Oximeter] Pulse Rate [orthos tatic lying Pulse Oximeter] Pulse Rate [orthos tatic sitting Puls e Oximeter] Pulse Rate [orthos tatic standing Pul se Oximeter] Respiratory Rate 12 14 16 Blood Pressure 129/90 H 125/82 128/93 H Blood Pressure [Ri ght Upper Arm] Blood Pressure [or thostatic lying Le ft Arm] Blood Pressure [or thostatic sitting Left Arm] Blood Pressure [or thostatic standing Left Arm] Pulse Oximetry 96 97 99 Oxygen Delivery Me thod 07/18/23 19:32 07/18/23 20:02 07/18/23 20:03 Temperature Pulse Rate 89 75 85 Pulse Rate [Right Pulse Oximeter] Pulse Rate [orthos tatic lying Pulse Oximeter] Pulse Rate [orthos tatic sitting Puls e Oximeter] Pulse Rate [orthos tatic standing Pul se Oximeter] Respiratory Rate 16 14 Blood Pressure 130/99 H 125/99 H Blood Pressure [Ri ght Upper Arm] Blood Pressure [or thostatic lying Le ft Arm] Blood Pressure [or thostatic sitting Left Arm] Blood Pressure [or thostatic standing Left Arm] Pulse Oximetry 96 99 99 Oxygen Delivery Me thod 07/18/23 20:15 07/18/23 20:30 07/18/23 20:31 Temperature Pulse Rate 76 84 94 Pulse Rate [Right Pulse Oximeter] Pulse Rate [orthos tatic lying Pulse Oximeter] Pulse Rate [orthos tatic sitting Puls e Oximeter] Pulse Rate [orthos tatic standing Pul se Oximeter] Respiratory Rate Blood Pressure 139/103 H Blood Pressure [Ri ght Upper Arm] Blood Pressure [or thostatic lying Le ft Arm] Blood Pressure [or thostatic sitting Left Arm] Blood Pressure [or thostatic standing Left Arm] Pulse Oximetry 99 95 85 L Oxygen Delivery Id thod 07/18/23 20:45 07/18/23 21:00 07/18/23 21:02 Temperature Pulse Rate 100 81 77 Pulse Rate [Right Pulse Oximeter] Pulse Rate [orthos tatic lying Pulse Oximeter] Pulse Rate [orthos tatic sitting Puls e Oximeter] Pulse Rate [orthos tatic standing Pul se Oximeter] Respiratory Rate Blood Pressure 132/71 Blood Pressure [Ri ght Upper Arm] Blood Pressure [or thostatic lying Le ft Arm] Blood Pressure [or thostatic sitting Left Arm] Blood Pressure [or thostatic standing Left Arm] Pulse Oximetry 95 95 97 Oxygen Delivery Me thod 07/18/23 21:15 07/18/23 22:31 Temperature Pulse Rate 83 95 Pulse Rate [Right Pulse Oximeter] Pulse Rate [orthos tatic lying Pulse Oximeter] Pulse Rate [orthos tatic sitting Puls e Oximeter] Pulse Rate [orthos tatic standing Pul se Oximeter] Respiratory Rate Blood Pressure Blood Pressure [Ri ght Upper Arm] Blood Pressure [or thostatic lying Le ft Arm] Blood Pressure [or thostatic sitting Left Arm] Blood Pressure [or thostatic standing Left Arm] Pulse Oximetry 97 Oxygen Delivery Id thod Documenting provider has reviewed patient's vital signs: yes Hospitalist - H&P: Result Labs Labs: Short CBC 07/18/23 Range/Units 14:48 WBC 7.37 (4.50-11.00) K/uL Hgb 15.3 (13.5-17.5) gm/dL Hct 45.1 (37.0-53.0) % Plt Count 318 (140-440) K/uL BMP 07/18/23 15:40 Sodium 139 Potassium 4.5 Chloride 109 Carbon Dioxide 25 BUN 18 Creatinine 1.0 Glucose 134 H Calcium 9.2 Liver Function 07/18/23 Range/Units 15:40 Total Bilirubin 1.4 (0.1-1.5) mg/dL AST 26 (12-35) U/L ALT 30 (4-50) U/L Alkaline Phosphatase 59 (40-150) U/L Albumin 3.9 (3.3-5.0) g/dL ECG Attestation: I personally reviewed and interpreted this ECG as follows: ECG interpretation date: 07/18/23 Interpretation: Atrial fibrillation with RVR, rate 103. No ischemic or infarct pattern noted. Imaging Chest x-ray: Attestation: I have reviewed the pertinent imaging results. Radiologist's impression: No acute abnormalities. CT angiogram of chest: Attestation: I have reviewed the pertinent imaging results. Radiologist's impression: IMPRESSION: 1. No pulmonary emboli. 4.4 centimeter ascending thoracic aortic aneurysm. 2. Bilateral bronchial wall thickening nonspecific but could be seen with bronchitis. Assessment and Plan Assessment and plan (1) Atrial fibrillation with rapid ventricular response: Problem comment: - unclear how long he has been in this current rhythm. - not a candidate for DC cardioversion today given that he is not anticoagulated and he really does not know how long he has been in this rhythm. - medical noncompliance with patient arbitrarily decided to stop his beta-sam about 4-5 days prior to his elective total knee arthroplasty and patient has not been on any anticoagulants for some time. - increase metoprolol succinate dose from 50 mg once daily to 75 mg once daily. Continue to monitor on telemetry. As needed diltiazem immediate released 30 mg q.6 hours for heart rate greater than 100 for greater than 10 minutes and mean arterial pressure greater than 65 mm Hg. - recheck echocardiogram. - initiate minute her dose anticoagulant with apixaban 2.5 mg twice daily. Recent literature demonstrates this is at least as effective as the full dose regimen and has less risk for bleeding complications. Status: Acute (2) Paroxysmal atrial fibrillation: Problem comment: - will warrant cardiology follow-up. Status: Acute (3) Tobacco abuse: Problem comment: -just started smoking for the 1st time ever in November 2022 as a crutch for weight loss and giving up alcohol use. Discussed importance of cessation for overall health as well as for healing, in setting of diabetes and peripheral neuropathy. Status: Acute (4) Atrial fibrillation: Problem comment: -most recent EKG shows NSR (reported since significant weight loss) -has been on ASA 325mg daily, unable to tolerate Eliquis, did not follow through with Zio holter -resume metoprolol upon discharge, currently bradycardic -telemetry post op -followed by Cardiology Status: Chronic (5) Sleep apnea: Problem comment: -does not tolerate CPAP. per PCP need for new study following weight loss Status: Acute (6) Thoracic aortic aneurysm without rupture: Problem comment: - CT angiogram of chest on 07/18/2023 demonstrates the following findings: 1. No pulmonary emboli. 4.4 centimeter ascending thoracic aortic aneurysm. 2. Bilateral bronchial wall thickening nonspecific but could be seen with bronchitis. - will need outpatient follow-up for this. Status: Acute (7) Status post right knee replacement: Problem comment: -07/11/2023, [place], [place], Dr. Higginbotham Status: Acute (8) Type 2 diabetes mellitus: Problem comment: -A1c 5.2, 100# weight loss since starting Ozempic -Ozempic held for past week. Patient states he is done with his medication with no plan to resume it following discharge. -encourage diabetic diet. TID WM blood glucose. No sliding scale ordered -recommend outpatient Podiatry consult as discussed with patient Status: Acute (9) Iatrogenic hypotension: Status: Acute Plan 1. Reviewed impression with patient. 2. He is agreeable with efforts as outlined above.
[2023-07-19] MEDS: OXYCODONE 5 MG TABLET PO (02:47)
[2023-07-19 03:00] VITALS: BP 120/77; PULSE 83; RESP 16; TEMP 36.5; O2SAT 95
--- NOTE | 2023-07-19 04:39 | PC.NURSE ---
Shift note: Pt arrived at the unit at 2120. Alert and oriented. Confirmed pain of 3 in the right knee which increases with activity and position change. V/S monitored were WNL. Telemetry reading was A.fib with normal ventricular rate. Surgical dressing appeared clean and dry. Icepack applied but pt later asked icepack to be removed. Pt refused SCD application. JORGITO applied. Oxycodone given at 0300 for pain of 5. A1 with walker and prefers using urinal at the side of the bed.
[2023-07-19 06:41] LABS: HCO3 VBG 27 mmol/L (21-28); Lactate* 0.9 mmol/L (0.5-1.9); PCO2 VBG 47 mmHG (40-50); PO2 VBG 21.3 mmHG (25-47); pH VBG 7.366 (7.32-7.43)
[2023-07-19 06:50] LABS: Hematocrit 41.4 % (37.0-53.0); Hemoglobin* 13.9 gm/dL (13.5-17.5); Mean Corpuscular HGB Conc 34 gm/dL (32-36); Mean Corpuscular Hemoglobin 31 pg (26-34); Mean Corpuscular Volume 92 fL (80-100); Platelet Count* 301 K/uL (140-440); Red Blood Count 4.52 m/uL (4.30-5.90); White Blood Count* 6.72 K/uL (4.50-11.00)
[2023-07-19 07:15] LABS: Slide Review Reflex No
[2023-07-19 07:24] LABS: Chloride* 107 mmol/L (96-114); Potassium* 4.7 mmol/L (3.6-5.1); Sodium* 136 mmol/L (135-149)
[2023-07-19 07:27] LABS: Anion Gap 4 mEq/L (7-15); Blood Urea Nitrogen* 14 mg/dL (7-30); Carbon Dioxide* 25 mmol/L (20-32); Creatinine* 0.9 mg/dL (0.5-1.5); Est. Creatinine Clearance* 95.21; Estimated Glomerular Filt Rate 95 ml/min
[2023-07-19 07:28] LABS: Calcium* 8.9 mg/dL (8.4-10.6); Glucose* 106 mg/dL (60-115)
[2023-07-19 07:30] VITALS: BP 106/67; PULSE 76; RESP 18; TEMP 37.3; O2SAT 100; O2SAT 93
[2023-07-19 07:46] LABS: Thyroid Stimulating Hormone* < 0.015 uIU/mL (0.270-4.20); Troponin I* < 0.01 ng/mL (0.01-0.04)
[2023-07-19] MEDS: SODIUM CHLORIDE 0.9 % (FLUSH) 10 ML SYRINGE 5 ML IVF ×2 (10:22→20:45)
[2023-07-19] MEDS: APIXABAN 5 MG TABLET PO ×2 (10:23→20:44)
[2023-07-19] MEDS: METOPROLOL SUCCINATE (XL) 100 MG TAB PO (10:23)
[2023-07-19] MEDS: ACETAMINOPHEN 325 MG TABLET 650 MG PO ×2 (10:25→20:43)
--- NOTE | 2023-07-19 10:38 | P.IMPN_ITS ---
Progress Note: A&P Assessment and plan (1) Atrial fibrillation with rapid ventricular response: Problem details: - unclear how long he has been in this current rhythm. - not a candidate for DC cardioversion today given that he is not anticoagulated and he really does not know how long he has been in this rhythm. - medical noncompliance with patient arbitrarily decided to stop his beta- sam about 4-5 days prior to his elective total knee arthroplasty and patient has not been on any anticoagulants for some time. - increase metoprolol succinate dose from 50 mg once daily to 75 mg once daily. Continue to monitor on telemetry. As needed diltiazem immediate released 30 mg q.6 hours for heart rate greater than 100 for greater than 10 minutes and mean arterial pressure greater than 65 mm Hg. - recheck echocardiogram. - initiate minute her dose anticoagulant with apixaban 2.5 mg twice daily. Recent literature demonstrates this is at least as effective as the full dose regimen and has less risk for bleeding complications. Plan for 07/19: eliquis 5 mg BID; stop aspirin, increase metoprolol to 100 mg XL; IV prn metoprolol; tele; Echo; may consider diltiazem if has preserved EF Status: Acute (2) Status post right knee replacement: Problem details: -07/11/2023, [facility], [place], [place], Dr. Higginbotham Status: Acute (3) Tobacco abuse: Problem details: -just started smoking for the 1st time ever in November 2022 as a crutch for weight loss and giving up alcohol use. Discussed importance of cessation for overall health as well as for healing, in setting of diabetes and peripheral neuropathy. Status: Acute (4) BPH loc w urin obs/LUTS: Problem details: -noncompliant with flomax Status: Acute (5) Type 2 diabetes mellitus: Problem details: -06/28/23 A1c 5.2, 100# weight loss since starting Ozempic -Ozempic held for past week. Patient states he is done with his medication with no plan to resume it following discharge. -encourage diabetic diet. TID WM blood glucose. No sliding scale ordered -recommend outpatient Podiatry consult as discussed with patient Status: Acute (6) Noncompliance with treatment: Problem details: medical and medication noncompliance. patient self doctors/self medicates will adjust his cardiac medications based on his own research and reasoning with out consulting medical providers Status: Acute (7) Thoracic aortic aneurysm without rupture: Problem details: - CT angiogram of chest on 07/18/2023 demonstrates the following findings: 1. No pulmonary emboli. 4.4 centimeter ascending thoracic aortic aneurysm. 2. Bilateral bronchial wall thickening nonspecific but could be seen with bronchitis. - will need outpatient follow-up for this. Status: Acute Subjective Date Seen: 07/19/23 Interval history: patient new to tn plan was for discharge today as he was rate controlled however when patient ambulated HR increased to 140-150s currently denies chest pain denies SOB Exam Narrative: Exam Narrative: Gen: no acute distress HEENT: NCAT EOMI mmm Neck: Supple CV: RRR normal s1 s2 Lungs: CTAB Abd: Soft,nt, nd Neuro: Alert, oriented, CN grossly intact; nonfocal screening?exam Psych: poor insight MSK: age appropriate muscle mass Skin; Warm, dry no rash on face Const: Vital Signs, click to edit/add: Vital Signs - 24 hr 07/18/23 12:10 07/18/23 14:42 07/18/23 14:50 Temperature 97 F L Pulse Rate Pulse Rate [Pulse Oximeter] Pulse Rate [Right Pulse Oximeter] 68 Pulse Rate [orthos tatic lying Pulse Oximeter] 102 H Pulse Rate [orthos tatic sitting Puls e Oximeter] 123 H Pulse Rate [orthos tatic standing Pul se Oximeter] 146 H Respiratory Rate 18 Blood Pressure Blood Pressure [Ri ght Arm] Blood Pressure [Ri ght Upper Arm] 112/70 Blood Pressure [or thostatic lying Le ft Arm] 134/86 Blood Pressure [or thostatic sitting Left Arm] 134/86 Blood Pressure [or thostatic standing Left Arm] 83/60 L Pulse Oximetry 98 [facility] 07/18/23 15:20 07/18/23 15:31 07/18/23 16:01 Temperature Pulse Rate 93 84 99 Pulse Rate [Pulse Oximeter] Pulse Rate [Right Pulse Oximeter] Pulse Rate [orthos tatic lying Pulse Oximeter] Pulse Rate [orthos tatic sitting Puls e Oximeter] Pulse Rate [orthos tatic standing Pul se Oximeter] Respiratory Rate 14 16 14 Blood Pressure 93/79 111/85 126/87 Blood Pressure [Ri ght Arm] Blood Pressure [Ri ght Upper Arm] Blood Pressure [or thostatic lying Le ft Arm] Blood Pressure [or thostatic sitting Left Arm] Blood Pressure [or thostatic standing Left Arm] Pulse Oximetry 100 100 98 Oxygen Delivery Il thod 07/18/23 16:18 07/18/23 16:31 07/18/23 17:02 Temperature Pulse Rate 78 78 77 Pulse Rate [Pulse Oximeter] Pulse Rate [Right Pulse Oximeter] Pulse Rate [orthos tatic lying Pulse Oximeter] Pulse Rate [orthos tatic sitting Puls e Oximeter] Pulse Rate [orthos tatic standing Pul se Oximeter] Respiratory Rate 16 14 12 Blood Pressure 129/80 135/89 106/82 Blood Pressure [Ri ght Arm] Blood Pressure [Ri ght Upper Arm] Blood Pressure [or thostatic lying Le ft Arm] Blood Pressure [or thostatic sitting Left Arm] Blood Pressure [or thostatic standing Left Arm] Pulse Oximetry 97 96 97 Oxygen Delivery Il thod 07/18/23 17:31 07/18/23 18:31 07/18/23 19:02 Temperature Pulse Rate 90 83 95 Pulse Rate [Pulse Oximeter] Pulse Rate [Right Pulse Oximeter] Pulse Rate [orthos tatic lying Pulse Oximeter] Pulse Rate [orthos tatic sitting Puls e Oximeter] Pulse Rate [orthos tatic standing Pul se Oximeter] Respiratory Rate 12 14 16 Blood Pressure 129/90 H 125/82 128/93 H Blood Pressure [Ri ght Arm] Blood Pressure [Ri ght Upper Arm] Blood Pressure [or thostatic lying Le ft Arm] Blood Pressure [or thostatic sitting Left Arm] Blood Pressure [or thostatic standing Left Arm] Pulse Oximetry 96 97 99 [facility] 07[facility]/23 19:32 07/18/23 20:02 07/18/23 20:03 Temperature Pulse Rate 89 75 85 Pulse Rate [Pulse Oximeter] Pulse Rate [Right Pulse Oximeter] Pulse Rate [orthos tatic lying Pulse Oximeter] Pulse Rate [orthos tatic sitting Puls e Oximeter] Pulse Rate [orthos tatic standing Pul se Oximeter] Respiratory Rate 16 14 Blood Pressure 130/99 H 125/99 H Blood Pressure [Ri ght Arm] Blood Pressure [Ri ght Upper Arm] Blood Pressure [or thostatic lying Le ft Arm] Blood Pressure [or thostatic sitting Left Arm] Blood Pressure [or thostatic standing Left Arm] Pulse Oximetry 96 99 99 Oxygen Delivery Me thod 07/18/23 20:15 07/18/23 20:30 07/18/23 20:31 Temperature Pulse Rate 76 84 94 Pulse Rate [Pulse Oximeter] Pulse Rate [Right Pulse Oximeter] Pulse Rate [orthos tatic lying Pulse Oximeter] Pulse Rate [orthos tatic sitting Puls e Oximeter] Pulse Rate [orthos tatic standing Pul se Oximeter] Respiratory Rate Blood Pressure 139/103 H Blood Pressure [Ri ght Arm] Blood Pressure [Ri ght Upper Arm] Blood Pressure [or thostatic lying Le ft Arm] Blood Pressure [or thostatic sitting Left Arm] Blood Pressure [or thostatic standing Left Arm] Pulse Oximetry 99 95 85 L Oxygen Delivery Me thod 07/18/23 20:45 07/18/23 21:00 07/18/23 21:02 Temperature Pulse Rate 100 81 77 Pulse Rate [Pulse Oximeter] Pulse Rate [Right Pulse Oximeter] Pulse Rate [orthos tatic lying Pulse Oximeter] Pulse Rate [orthos tatic sitting Puls e Oximeter] Pulse Rate [orthos tatic standing Pul se Oximeter] Respiratory Rate Blood Pressure 132/71 Blood Pressure [Ri ght Arm] Blood Pressure [Ri ght Upper Arm] Blood Pressure [or thostatic lying Le ft Arm] Blood Pressure [or thostatic sitting Left Arm] Blood Pressure [or thostatic standing Left Arm] Pulse Oximetry 95 95 97 Oxygen Delivery Me thod 07/18/23 21:15 07/18/23 21:53 07/18/23 21:53 Temperature 98 F Pulse Rate 83 Pulse Rate [Pulse Oximeter] 97 Pulse Rate [Right Pulse Oximeter] Pulse Rate [orthos tatic lying Pulse Oximeter] Pulse Rate [orthos tatic sitting Puls e Oximeter] Pulse Rate [orthos tatic standing Pul se Oximeter] Respiratory Rate 16 16 Blood Pressure Blood Pressure [Ri ght Arm] 132/81 Blood Pressure [Ri ght Upper Arm] Blood Pressure [or thostatic lying Le ft Arm] Blood Pressure [or thostatic sitting Left Arm] Blood Pressure [or thostatic standing Left Arm] Pulse Oximetry 97 96 96 Oxygen Delivery Me thod Room Air Room Air 07/18/23 22:25 07/18/23 22:31 07/18/23 23:00 Temperature Pulse Rate 95 95 Pulse Rate [Pulse Oximeter] 96 Pulse Rate [Right Pulse Oximeter] Pulse Rate [orthos tatic lying Pulse Oximeter] Pulse Rate [orthos tatic sitting Puls e Oximeter] Pulse Rate [orthos tatic standing Pul se Oximeter] Respiratory Rate 16 Blood Pressure Blood Pressure [Ri ght Arm] Blood Pressure [Ri ght Upper Arm] Blood Pressure [or thostatic lying Le ft Arm] Blood Pressure [or thostatic sitting Left Arm] Blood Pressure [or thostatic standing Left Arm] Pulse Oximetry Oxygen Delivery Me thod 07/18/23 23:00 07/18/23 23:00 07/19/23 03:00 Temperature 98.2 F 97.7 F Pulse Rate Pulse Rate [Pulse Oximeter] 97 83 Pulse Rate [Right Pulse Oximeter] Pulse Rate [orthos tatic lying Pulse Oximeter] Pulse Rate [orthos tatic sitting Puls e Oximeter] Pulse Rate [orthos tatic standing Pul se Oximeter] Respiratory Rate 16 16 16 Blood Pressure Blood Pressure [Ri ght Arm] 130/100 H 120/77 Blood Pressure [Ri ght Upper Arm] Blood Pressure [or thostatic lying Le ft Arm] Blood Pressure [or thostatic sitting Left Arm] Blood Pressure [or thostatic standing Left Arm] Pulse Oximetry 96 96 95 Oxygen Delivery Me thod Room Air Room Air Room Air Labs Labs: Laboratory Results - last 24 hr 07/18/23 07/18/23 07/18/23 14:48 15:40 15:40 WBC 7.37 RBC 4.95 Hgb 15.3 Hct 45.1 MCV 91 MCH 31 MCHC 34 RDW Coeff of Leni 13.4 Plt Count 318 Neut % (Auto) 64.2 Lymph % (Auto) 27.3 [place] % (Auto) 5.3 Eos % (Auto) 2.8 Baso % (Auto) 0.3 Neut # (Auto) 4.73 Lymph # (Auto) 2.01 [place] # (Auto) 0.40 Eos # (Auto) 0.21 Baso # (Auto) 0.02 Abs Immat Gran (auto) 0.01 Imm/Tot Granulo (auto) 0.1 D-Dimer Quant (PE/DVT) 1.13 H VBG pH VBG pCO2 VBG pO2 VBG HCO3 Sodium 139 Potassium 4.5 Chloride 109 Carbon Dioxide 25 Anion Gap 5 L BUN 18 Creatinine 1.0 Estimated Creat Clear Estimated GFR 84 Glucose 134 H Lactate 2.8 H Calcium 9.2 Magnesium 2.1 Cancelled Total Bilirubin 1.4 AST 26 ALT 30 Alkaline Phosphatase 59 Troponin I NT-Pro-B Natriuret Pep 837 Total Protein Albumin TSH Lab Acknowledgement POC Troponin I 07/18/23 07/19/23 07/19/23 15:40 06:19 10:17 WBC 6.72 RBC 4.52 Hgb 13.9 Hct 41.4 MCV 92 MCH 31 MCHC 34 RDW Coeff of Leni Plt Count 301 Neut % (Auto) Lymph % (Auto) [place] % (Auto) Eos % (Auto) Baso % (Auto) Neut # (Auto) Lymph # (Auto) [place] # (Auto) Eos # (Auto) Baso # (Auto) Abs Immat Gran (auto) Imm/Tot Granulo (auto) D-Dimer Quant (PE/DVT) VBG pH 7.366 VBG pCO2 47 VBG pO2 21.3 L VBG HCO3 27 Sodium 136 Potassium 4.7 Chloride 107 Carbon Dioxide 25 Anion Gap 4 L BUN 14 Creatinine 0.9 Estimated Creat Clear 95.21 Estimated GFR 95 Glucose 106 Lactate 0.9 Calcium 8.9 Magnesium 2.0 Total Bilirubin AST ALT Alkaline Phosphatase Troponin I < 0.01 L NT-Pro-B Natriuret Pep Cancelled Total Protein 6.9 Albumin 3.9 TSH < 0.015 L Lab Acknowledgement Test Added POC Troponin I 0.00 L
[2023-07-19 10:52] LABS: Free T4 Free Thyroxine* 1.93 ng/dL (0.70-1.85)
[2023-07-19 11:00] VITALS: BP 103/91; PULSE 96; RESP 20; TEMP 36.8; O2SAT 95
[2023-07-19 11:32] VITALS: BMI 31.8
--- NOTE | 2023-07-19 16:35 | PC.NURSE ---
Please see eMar for meds provided on day shift. Plan echo this afternoon. Pt is s/p right knee surgery 07/11/23. Original surgical drsg CDI. Tele indicates Afib with normal ventricular rate. Pt taking tylenol prn for pain 2 out of 10. Report to Shauna Martinez for evening shift.
[2023-07-19 16:48] VITALS: PULSE 77
[2023-07-19 16:50] VITALS: BP 115/80; PULSE 74; RESP 18; TEMP 36.8; O2SAT 100
[2023-07-19 19:21] VITALS: BP 121/81; PULSE 87; RESP 16; TEMP 36.8; O2SAT 100
[2023-07-19] MEDS: TAMSULOSIN HCL 0.4 MG CAPSULE PO (20:44)
[2023-07-19] MEDS: GABAPENTIN 300 MG CAPSULE PO (20:45)
--- NOTE | 2023-07-19 22:35 | PC.NURSE ---
Shift [id number]- Patient denies need for pain medication until sleep, this shift. Cryocuff applied to right knee. He showers this evening- MD ok to remove tele while doing so. Patient denies lightheadedness, dizziness, or chest pain. Remains in a-fib with rate below 100bpm.
[2023-07-20] VITALS (7 sets, daily range): BP systolic 64–116; BP diastolic 41–83; PULSE 75–125; RESP 16–18; TEMP 36.5–36.8; O2SAT 94–99
[2023-07-20] MEDS: ACETAMINOPHEN 325 MG TABLET 650 MG PO (04:30)
[2023-07-20] MEDS: METOPROLOL SUCCINATE (XL) 100 MG TAB PO (06:20)
--- NOTE | 2023-07-20 08:19 | PC.NURSE ---
Pt alert and oriented x3. Afebrile. Pt reports 3/10 pain in right knee, pain managed with PRN medications and cryo cuff. Pt denies SOB, Chest pain, and N/V. Pt's right knee dressing is CDI. Pt is up SBA to bathroom. Pt slept throughout most of night. Night uneventful.
[2023-07-20] MEDS: SODIUM CHLORIDE 0.9 % (FLUSH) 10 ML SYRINGE 5 ML IVF (09:31)
[2023-07-20] MEDS: APIXABAN 5 MG TABLET PO (09:31)
[2023-07-20] MEDS: LACTATED RINGERS 1000 ML 1,000 ML IV (09:49)
--- NOTE | 2023-07-20 10:40 | P.DS_ITS ---
DS: Providers Provider Date Seen: 07/20/23 Date of admission: 07/18/23 21:19 Primary care physician: Leonid Díaz MD Admitting Clinician: Markus Bangura MD Consults: 07/18/23 21:43 Consult to Nutrition [CONS] Routine Comment: Reason for consult:: Miscellaneous 07/18/23 21:52 Consult to Physician [CONS] Routine Comment: Consulting Provider: Sergei Marinelli Has provider been notified: Yes 07/19/23 10:50 Consult to Physical Therapy [CONS] Routine Comment: Reason(s) for PT Consult:: Evaluate and Treat Any Restrictions?:: No Restrictions Attending Physician on discharge: John Navarro MD Date of Discharge: 07/20/23 DS: Summary Hospital Course Hospital Course: [place] ate Seen: 07/18/23 Chief complaint: Atrial fibrillation with RVR Narrative: Salinas Meza is a 67 year old male underwent an elective right total knee arthroplasty on 07/11/[address] Sergei Marinelli, [facility], [place], [place]. Reportedly on his own accord he he decided to stop his metoprolol succinate 4-5 days prior to his surgery. He states he did well until 1 day after returning home from his surgery when he noticed that he was having symptoms that made him think he might be having atrial fibrillation with rapid ventricular response. It is unclear to me if he restarted his metoprolol succinate at that time, he made it seemed as though he probably did. It is also unclear to me why he did not do anything else until today when he was feeling lightheaded and dizzy and he decided to call his orthopedic surgeon who recommended he go to the emergency department for further assessment and intervention. When he 1st presented to the emergency department for assessment today, the patient's vital signs were entirely normal. Heart rate was 68 beats per minute. There was a long wait in the emergency department and patient opted to leave the emergency department. He came back later on, and on his return his heart rate was around 120 to 140. On further assessment it was apparent that the patient was in AFib RVR. Patient was loaded with IV and oral metoprolol. Heart rate slowed down to 80-100 when at rest. Any activity and his heart rate would go into the 110-120 range. At this juncture the physician in the emergency department opted to contact me and arrange for patient to be admitted to the hospital for additional intervention and monitoring. Patient is known to have a history of paroxysmal and persistent atrial fibrillation. Has followed with Cardiology over the years for the same. It is unclear if the patient is entirely aware of when he is in atrial fibrillation or not. At times he says he thinks he is when in fact he is, and other times he says he think he is he is when he in fact is not. Other times he has no idea that he is in AFib with rapid ventricular response. Thus when he requests that we DC cardiovert him today we make it very clear to him that it is not appropriate and in fact it would be dangerous for us to do so unless the patient was in dire straits, with his life in jeopardy, which he is not. Thus discussion is undertaken in regard to better rate control and initiation of anticoagulation. Historically the patient has had symptoms which he has ascribed to be related to various anticoagulants he has attempted in the past including warfarin, rivaroxaban, and more recently apixaban. These various symptoms which he has ascribed to anticoagulants have included low blood pressure, near-syncope, and nausea. Presently he is on a prescription of aspirin 81 mg twice daily status post elective right total knee arthroplasty. He is on no other antithrombotics. He is currently on no anticoagulants. The last anticoagulant that he was on was apixaban which he was taking at 5 mg twice daily. He tells me he still has that prescription at home. HOSPITAL COURSE The patient was admitted; his eliquis was restarted. He was followed on Tele; his metoprolol XL was increased to 100 mg BID. HIs case was discussed with [facility] Cardiology. They recommended event monitor (we only have Holter Monitor) and continuing metoprolol/eliquis. Given his hx of medication and medical noncompliance they did not recommend starting antiarrthymic agent. He has cardiology appointment in two days on 07/22 and they will discuss further adjustment of cardiac medications as appropriate. The patient denies chest pain, sob, headache dizziness. He was orthostatic this morning but walked again in hallway and asymptomatic. He is requesting to discharge home and cardiology and I felt that is reasonable since he has close outpatient followup. He has been instructed to return to ED for headache, dizziness, lightheadedness. He has ordered pulse ox to measure his HR at home regularly. His FT4 was slightly eleva garret and he has been instructed to follow up with his PCP for further workup including anticipated thyroid US if needed. PCP Follow up Cardiology Recs BP mgmt Continue workup of Thyroid function (1) Atrial fibrillation with rapid ventricular response: Problem details: - unclear how long he has been in this current rhythm. - not a candidate for DC cardioversion today given that he is not anticoagulated and he really does not know how long he has been in this rhythm. - medical noncompliance with patient arbitrarily decided to stop his beta- sam about 4-5 days prior to his elective total knee arthroplasty and patient has not been on any anticoagulants for some time. - increase metoprolol succinate dose from 50 mg once daily to 75 mg once daily. Continue to monitor on telemetry. As needed diltiazem immediate released 30 mg q.6 hours for heart rate greater than 100 for greater than 10 minutes and mean arterial pressure greater than 65 mm Hg. - recheck echocardiogram. - initiate minute her dose anticoagulant with apixaban 2.5 mg twice daily. Recent literature demonstrates this is at least as effective as the full dose regimen and has less risk for bleeding complications. Plan for 07/19: eliquis 5 mg BID; stop aspirin, increase metoprolol to 100 mg XL; IV prn metoprolol; tele; Echo; may consider diltiazem if has preserved EF Status: Acute (2) Status post right knee replacement: Problem details: -07/11/2023, [facility], [place], [place], Dr. Higginbotham Status: Acute (3) Tobacco abuse: Problem details: -just started smoking for the 1st time ever in November 2022 as a crutch for weight loss and giving up alcohol use. Discussed importance of cessation for overall health as well as for healing, in setting of diabetes and peripheral neuropathy. Status: Acute (4) BPH loc w urin obs/LUTS: Problem details: -noncompliant with flomax Status: Acute (5) Type 2 diabetes mellitus: Problem details: -06/28/23 A1c 5.2, 100# weight loss since starting Ozempic -Ozempic held for past week. Patient states he is done with his medication with no plan to resume it following discharge. -encourage diabetic diet. TID WM blood glucose. No sliding scale ordered -recommend outpatient Podiatry consult as discussed with patient Status: Acute (6) Noncompliance with treatment: Problem details: medical and medication noncompliance. patient self doctors/self medicates will adjust his cardiac medications based on his own research and reasoning with out consulting medical providers Status: Acute (7) Thoracic aortic aneurysm without rupture: Problem details: - CT angiogram of chest on 07/18/2023 demonstrates the following findings: 1. No pulmonary emboli. 4.4 centimeter ascending thoracic aortic aneurysm. 2. Bilateral bronchial wall thickening nonspecific but could be seen with bronchitis. - will need outpatient follow-up for this. Status: Acute Time Spent with Patient Time attestation: Total time spent providing and/or coordinating discharge services: Exam Narrative: Exam Narrative: Gen: no acute distress HEENT: NCAT EOMI mmm Neck: Supple CV: RRR normal s1 s2 Lungs: CTAB Abd: Soft,nt, nd Neuro: Alert, oriented, CN grossly intact; nonfocal screening?exam Psych: appropriate affect MSK: age appropriate muscle mass Skin; Warm, dry no rash on face Const: Vital Signs, click to edit/add: Vital Signs - 24 hr 07/19/23 11:00 07/19/23 16:48 07/19/23 16:50 Temperature 98.2 F Pulse Rate 77 Pulse Rate [Pulse Oximeter] 96 Pulse Rate [orthos tatic lying Pulse Oximeter] Pulse Rate [orthos tatic sitting Puls e Oximeter] Pulse Rate [orthos tatic standing Pul se Oximeter] Respiratory Rate 20 Blood Pressure [Ri ght Arm] 103/91 H Blood Pressure [or thostatic lying Le ft Arm] Blood Pressure [or thostatic sitting Left Arm] Blood Pressure [or thostatic standing Left Arm] Pulse Oximetry 95 100 Oxygen Delivery Me thod Room Air Room Air 07/19/23 16:50 07/19/23 19:21 07/20/23 00:35 Temperature 98.2 F 98.2 F Pulse Rate 79 Pulse Rate [Pulse Oximeter] 74 87 Pulse Rate [orthos tatic lying Pulse Oximeter] Pulse Rate [orthos tatic sitting Puls e Oximeter] Pulse Rate [orthos tatic standing Pul se Oximeter] Respiratory Rate 18 16 Blood Pressure [Ri ght Arm] 115/80 121/81 Blood Pressure [or thostatic lying Le ft Arm] Blood Pressure [or thostatic sitting Left Arm] Blood Pressure [or thostatic standing Left Arm] Pulse Oximetry 100 100 Oxygen Delivery Me thod Room Air Room Air 07/20/23 00:35 07/20/23 00:35 07/20/23 00:35 Temperature 97.7 F Pulse Rate Pulse Rate [Pulse Oximeter] 83 83 Pulse Rate [orthos tatic lying Pulse Oximeter] Pulse Rate [orthos tatic sitting Puls e Oximeter] Pulse Rate [orthos tatic standing Pul se Oximeter] Respiratory Rate 16 16 Blood Pressure [Ri ght Arm] 105/74 Blood Pressure [or thostatic lying Le ft Arm] Blood Pressure [or thostatic sitting Left Arm] Blood Pressure [or thostatic standing Left Arm] Pulse Oximetry 98 98 [facility] 07/20/23 04:05 07/20/23 07:16 07/20/23 08:58 Temperature 97.9 F Pulse Rate 75 Pulse Rate [Pulse Oximeter] 76 Pulse Rate [orthos tatic lying Pulse Oximeter] Pulse Rate [orthos tatic sitting Puls e Oximeter] Pulse Rate [orthos tatic standing Pul se Oximeter] Respiratory Rate 18 18 Blood Pressure [Ri ght Arm] 106/74 Blood Pressure [or thostatic lying Le ft Arm] Blood Pressure [or thostatic sitting Left Arm] Blood Pressure [or thostatic standing Left Arm] Pulse Oximetry 95 95 [facility] 07/20/23 08:58 07/20/23 09:00 07/20/23 09:01 Temperature 98.1 F Pulse Rate Pulse Rate [Pulse Oximeter] 77 77 Pulse Rate [orthos tatic lying Pulse Oximeter] 125 H Pulse Rate [orthos tatic sitting Puls e Oximeter] 85 Pulse Rate [orthos tatic standing Pul se Oximeter] 77 Respiratory Rate 18 18 Blood Pressure [Ri ght Arm] 98/65 Blood Pressure [or thostatic lying Le ft Arm] 64/41 L Blood Pressure [or thostatic sitting Left Arm] 97/71 Blood Pressure [or thostatic standing Left Arm] 98/65 Pulse Oximetry 99 Oxygen Delivery Me thod Room Air DS: Data Data Completed and Pending Labs on day of discharge: Labs from last 24 hours 07/19/23 06:19 Free T4 1.93 H TSH-Low, FT4 1.93 Additional Comments Additional comments: CT PE IMPRESSION: 1. No pulmonary emboli. 4.4 centimeter ascending thoracic aortic aneurysm. 2. Bilateral bronchial wall thickening nonspecific but could be seen with bronchitis. Discharge Plan Discharge Disposition: Home, Self-Care Date of Admission: 07/18/23 21:19 Attending Provider on Discharge: John Navarro Consulting Providers: Sergei Marinelli Primary Care Provider: Leonid Díaz Condition: Improved Anticipated Discharge Date/Time: 07/20/23 12:00 Discharge Medications: Continued albuterol sulfate 90 mcg/actuation HFA aerosol inhaler 2 puff inhalation Q6H PRN (Reason: shortness of breath or wheezing) Qty: 8.5 2RF Ozempic 1 mg/dose (4 mg/3 mL) pen injector 1 mg subcut Q7D sennosides-docusate sodium [Senna-S] 8.6-50 mg tablet 1 - 4 tab-cap PO BID PRN (Reason: constipation) Qty: 60 0RF Rx Instructions: Hold medication if experiencing loose stools. acetaminophen 500 mg capsule 500 - 1,000 mg PO Q6H MDD 4000mg PRNQty: 100 0RF oxycodone 5 mg tablet 2.5 - 5 mg PO Q4-6H MDD 6 PRN (Reason: pain) Qty: 42 0RF Rx Instructions: Take as needed for postop pain: 2.5mg mild pain, 5mg moderate-severe pain; wean as tolerated. tamsulosin [Flomax] 0.4 mg capsule 0.4 mg PO HS gabapentin [Neurontin] 300 mg capsule 300 mg PO HS Changed metoprolol succinate 50 mg tablet extended release 24 hr 100 mg PO DAILY Qty: 30 0RF Held testosterone 12.5 mg/ 1.25 gram (1 %) gel in metered-dose pump 2 pump transdermal DAILY Hold Instructions: Resume on 08/03/23. Discontinued aspirin 81 mg tablet,delayed release (DR/EC) 81 mg PO BID Qty: 60 0RF Rx Instructions: Medication to help prevent blood clots postoperatively; take TWICE daily. celecoxib 100 mg capsule 100 mg PO BID Discharge Orders: Discharge Order (Routine); Ordered 07/20/23 Ordered By: John Navarro Patient Education: Metoprolol (By mouth), A-fib (Atrial Fibrillation) (DC) Activity Level: Activity as Tolerated Diet Detail: Resume previous home diet Follow Up Appointments: STEFANI WILLSON [Other] - 07/22/23 1:45 pm (Cardiology appointment Dr. Boateng not available) Leonid Díaz MD [Primary Care Provider] - 07/26/23 11:00 am ([facility] for follow-up.) Stefani Willson MD [Referring] - Loan Boateng [Staff Physician] - Forms: [employer] Info Instructions
--- NOTE | 2023-07-20 11:14 | P.ORCN_ITS ---
History of Present Illness HPI Date Seen: 07/20/23 Consult date: 07/19/23 Chief complaint: Atrial fibrillation with RVR Narrative: Merrill is well known to my clinic situation. He underwent right TKA 07/11/2023. In the preoperative time, he reports approximately 100 lb weight loss over the course 6-10 months. Accordingly, he chose to stop all of his medications. This includes Eliquis, medicine prescribed by his chronic specialist for atrial fibrillation. He acknowledges being in atrial fibrillation occasionally, but feels like he has been out of AFib for a number of months. He underwent the right TKA and acknowledges in the few days afterwards he started feeling lightheaded and dizzy. He called our office. Upon inquiring with multiple questions, had a low suspicion for DVT/PE, but were uncertain as to the etiology. Recommended if symptoms persist that he be seen in an emergency room for further evaluation. He chose to wait through the weekend. He then called back Tuesday morning acknowledging that he still had similar symptoms. He had a blood pressure cuff at home which reportedly read 80/50. He was encouraged to recheck this. 1 hour later it was approximately 112/80, per his report. He is still encouraged to go to the emergency department to better understand the etiology for his lightheadedness and dizziness. He went, but after a 2+ our weight, he elected to leave. I happened to be walking through the door way where he was laying on bed waiting for a ride. I spoke with him at that time and gathered is history in more detail. It was helpful to examine him acknowledging that in general he had no appearing shortness of breath, no wheezing or stridor, no difficulty breathing. He had no chest pain, his color looks good, any was interacting appropriately. Normal mentation. Regarding the right knee, this appeared healthy with no drainage, no erythema, typical swelling. I palpated his radial artery given his history of atrial fibrillation and found this to be irregular and rapid. I recommended he indeed stay until they can be seen in the emergency department. He reluctantly state. This eventually prompted admission to our hospitalist team. I received a consult from the hospitalist team accordingly. [facility] Medical History Bronchitis ?J40 - Bronchitis, not specified as acute or chronic (ICD-10) Cough in adult ?R05.9 - Cough, unspecified (ICD-10) Atrial fibrillation ?I48.91 - Unspecified atrial fibrillation (ICD-10) Sleep apnea ?G47.30 - Sleep apnea, unspecified (ICD-10) Low testosterone in male ?R79.89 - Other specified abnormal findings of blood chemistry (ICD-10) Osteoarthritis of left knee ?M17.12 - Unilateral primary osteoarthritis, left knee (ICD-10) DJD (degenerative joint disease) ?M19.90 - Unspecified osteoarthritis, unspecified site (ICD-10) Heart failure with preserved ejection fraction ?I50.30 - Unspecified diastolic (congestive) heart failure (ICD-10) Gynecomastia ?N62 - Hypertrophy of breast (ICD-10) Surgical History Status post right knee replacement (07/11/23) ?Z96.651 - Presence of right artificial knee joint (ICD-10) Social History What is your current living situation?: I presently have a place to live Problems where you live: no known problems Problems where you live details: na In the past 12 months, utilities in danger of being shut off: no In past 12 months, lack of transportation kept you from medical appts, meetings, work, or getting things needed for daily living: no In the past 12 mos, have been you worried that your food would run out before you had money to buy more?: never true In the past 12 mos, the food you bought just didn't last and you didn't have money to buy more?: never true Smoking Status: Current every day smoker What tobacco products do you use: cigarettes Do you use any of these nicotine containing products: None How often do you have a drink containing alcohol: 2-4 times a month Alcohol type: beer How many standard drinks containing alcohol do you have on a typical day: 1 or 2 How often do you have six or more drinks on one occasion: Never AUDIT-C Alcohol total score: 2 Non-prescribed substance use: denies use Caffeine: Yes (coffee daily) How often does anyone, including family, friends and others, physically hurt you : never How often does anyone, including family, friends and others, insult or talk down to you: never How often does anyone, including family, friends and others, threaten you with harm: never How often does anyone, including family, friends and others, scream or curse at you: never service: No Meds Home Medications and Allergies Home Medications Medication Instructions Recorded Confirmed Type semaglutide 1 mg/dose (4 mg/3 mL) 1 mg subcut Q7D 05/05/23 07/19/23 History subcutaneous pen injector (Ozempic) testosterone 12.5 mg/1.25 gram per 2 pump transdermal DAILY 05/05/23 07/19/23 History pump actuation (1%) transdermal gel gabapentin 300 mg capsule 300 mg PO HS 07/19/23 07/19/23 History (Neurontin) tamsulosin 0.4 mg capsule (Flomax) 0.4 mg PO HS 07/19/23 07/19/23 History Allergies Allergy/AdvReac Type Severity Reaction Status Date / Time No Known Drug Allergies Allergy Verified 07/18/23 12:16 Ortho Exam Narrative Exam Narrative: As noted above, and med interview today, he is resting in bed comfortably. Lucid. Cooperative. No acute distress. No stridor or wheezing. Breathing is comfortable. Regarding the right knee, incision appears healthy after removing the dressing. Typical swelling and warmth. No significant discoloration. Some bruising around his proximal calf as is expected. Neurologic intact distally all 5 dermatomes and myotomes. Const Vital Signs, click to edit/add: Vital Signs - 24 hr 07/19/23 16:48 07/19/23 16:50 07/19/23 16:50 Temperature 98.2 F Pulse Rate 77 Pulse Rate [Pulse Oximeter] 74 Pulse Rate [orthostatic lying Pulse Oximeter] Pulse Rate [orthostatic sitting Pulse Oximeter] Pulse Rate [orthostatic standing Pulse Oximeter] Respiratory Rate 18 Blood Pressure [Right Arm] 115/80 Blood Pressure [orthostatic lying Left Arm] Blood Pressure [orthostatic sitting Left Arm] Blood Pressure [orthostatic standing Left Arm] Pulse Oximetry 100 100 Oxygen Delivery Method Room Air Room Air 07/19/23 19:21 07/20/23 00:35 07/20/23 00:35 Temperature 98.2 F Pulse Rate 79 Pulse Rate [Pulse Oximeter] 87 83 Pulse Rate [orthostatic lying Pulse Oximeter] Pulse Rate [orthostatic sitting Pulse Oximeter] Pulse Rate [orthostatic standing Pulse Oximeter] Respiratory Rate 16 Blood Pressure [Right Arm] 121/81 Blood Pressure [orthostatic lying Left Arm] Blood Pressure [orthostatic sitting Left Arm] Blood Pressure [orthostatic standing Left Arm] Pulse Oximetry 100 Oxygen Delivery Method Room Air 07/20/23 00:35 07/20/23 00:35 07/20/23 04:05 Temperature 97.7 F 97.9 F Pulse Rate Pulse Rate [Pulse Oximeter] 83 76 Pulse Rate [orthostatic lying Pulse Oximeter] Pulse Rate [orthostatic sitting Pulse Oximeter] Pulse Rate [orthostatic standing Pulse Oximeter] Respiratory Rate 16 16 18 Blood Pressure [Right Arm] 105/74 106/74 Blood Pressure [orthostatic lying Left Arm] Blood Pressure [orthostatic sitting Left Arm] Blood Pressure [orthostatic standing Left Arm] Pulse Oximetry 98 98 95 Oxygen Delivery Method Room Air Room Air Room Air 07/20/23 07:16 07/20/23 08:58 07/20/23 08:58 Temperature 98.1 F Pulse Rate 75 Pulse Rate [Pulse Oximeter] 77 Pulse Rate [orthostatic lying Pulse Oximeter] Pulse Rate [orthostatic sitting Pulse Oximeter] Pulse Rate [orthostatic standing Pulse Oximeter] Respiratory Rate 18 18 Blood Pressure [Right Arm] 98/65 Blood Pressure [orthostatic lying Left Arm] Blood Pressure [orthostatic sitting Left Arm] Blood Pressure [orthostatic standing Left Arm] Pulse Oximetry 95 99 Oxygen Delivery Method Room Air Room Air 07/20/23 09:00 07/20/23 09:01 07/20/23 10:47 Temperature 98.3 F Pulse Rate Pulse Rate [Pulse Oximeter] 77 75 Pulse Rate [orthostatic lying Pulse Oximeter] 125 H Pulse Rate [orthostatic sitting Pulse Oximeter] 85 Pulse Rate [orthostatic standing Pulse Oximeter] 77 Respiratory Rate 18 18 Blood Pressure [Right Arm] 116/83 Blood Pressure [orthostatic lying Left Arm] 64/41 L Blood Pressure [orthostatic sitting Left Arm] 97/71 Blood Pressure [orthostatic standing Left Arm] 98/65 Pulse Oximetry 94 Oxygen Delivery Method Room Air Results Labs Labs: Laboratory Results - last 48 hr 07/18/23 07/18/23 07/18/23 14:48 15:40 15:40 WBC 7.37 RBC 4.95 Hgb 15.3 Hct 45.1 MCV 91 MCH 31 MCHC 34 RDW Coeff of Leni 13.4 Plt Count 318 Neut % (Auto) 64.2 Lymph % (Auto) 27.3 [place] % (Auto) 5.3 Eos % (Auto) 2.8 Baso % (Auto) 0.3 Neut # (Auto) 4.73 Lymph # (Auto) 2.01 [place] # (Auto) 0.40 Eos # (Auto) 0.21 Baso # (Auto) 0.02 Abs Immat Gran (auto) 0.01 Imm/Tot Granulo (auto) 0.1 D-Dimer Quant (PE/DVT) 1.13 H VBG pH VBG pCO2 VBG pO2 VBG HCO3 Sodium 139 Potassium 4.5 Chloride 109 Carbon Dioxide 25 Anion Gap 5 L BUN 18 Creatinine 1.0 Estimated Creat Clear Estimated GFR 84 Glucose 134 H Lactate 2.8 H Calcium 9.2 Magnesium 2.1 Cancelled Total Bilirubin 1.4 AST 26 ALT 30 Alkaline Phosphatase 59 Troponin I NT-Pro-B Natriuret Pep 837 Total Protein Albumin TSH Free T4 Lab Acknowledgement POC Troponin I 07/18/23 07/19/23 07/19/23 15:40 06:19 10:17 WBC 6.72 RBC 4.52 Hgb 13.9 Hct 41.4 MCV 92 MCH 31 MCHC 34 RDW Coeff of Leni Plt Count 301 Neut % (Auto) Lymph % (Auto) [place] % (Auto) Eos % (Auto) Baso % (Auto) Neut # (Auto) Lymph # (Auto) [place] # (Auto) Eos # (Auto) Baso # (Auto) Abs Immat Gran (auto) Imm/Tot Granulo (auto) D-Dimer Quant (PE/DVT) VBG pH 7.366 VBG pCO2 47 VBG pO2 21.3 L VBG HCO3 27 Sodium 136 Potassium 4.7 Chloride 107 Carbon Dioxide 25 Anion Gap 4 L BUN 14 Creatinine 0.9 Estimated Creat Clear 95.21 Estimated GFR 95 Glucose 106 Lactate 0.9 Calcium 8.9 Magnesium 2.0 Total Bilirubin AST ALT Alkaline Phosphatase Troponin I < 0.01 L NT-Pro-B Natriuret Pep Cancelled Total Protein 6.9 Albumin 3.9 TSH < 0.015 L Free T4 1.93 H Lab Acknowledgement Test Added POC Troponin I 0.00 L 07/20/23 09:32 WBC RBC Hgb Hct MCV MCH MCHC RDW Coeff of Leni Plt Count Neut % (Auto) Lymph % (Auto) [place] % (Auto) Eos % (Auto) Baso % (Auto) Neut # (Auto) Lymph # (Auto) [place] # (Auto) Eos # (Auto) Baso # (Auto) Abs Immat Gran (auto) Imm/Tot Granulo (auto) D-Dimer Quant (PE/DVT) VBG pH VBG pCO2 VBG pO2 VBG HCO3 Sodium Potassium Chloride Carbon Dioxide Anion Gap BUN Creatinine Estimated Creat Clear Estimated GFR Glucose Lactate Calcium Magnesium Total Bilirubin AST ALT Alkaline Phosphatase Troponin I NT-Pro-B Natriuret Pep Total Protein Albumin TSH Free T4 Lab Acknowledgement Test Added POC Troponin I Assessment and Plan Assessment and plan (1) Atrial fibrillation with rapid ventricular response: Problem comment: - unclear how long he has been in this current rhythm. - not a candidate for DC cardioversion today given that he is not anticoagulated and he really does not know how long he has been in this rhythm. - medical noncompliance with patient arbitrarily decided to stop his beta- sam about 4-5 days prior to his elective total knee arthroplasty and patient has not been on any anticoagulants for some time. - increase metoprolol succinate dose from 50 mg once daily to 75 mg once daily. Continue to monitor on telemetry. As needed diltiazem immediate released 30 mg q.6 hours for heart rate greater than 100 for greater than 10 minutes and mean arterial pressure greater than 65 mm Hg. - recheck echocardiogram. - initiate minute her dose anticoagulant with apixaban 2.5 mg twice daily. Recent literature demonstrates this is at least as effective as the full dose regimen and has less risk for bleeding complications. Plan for 07/19: eliquis 5 mg BID; stop aspirin, increase metoprolol to 100 mg XL; IV prn metoprolol; tele; Echo; may consider diltiazem if has preserved EF Status: Acute Total time spent: Total time spent is greater than 50% in coordination of care (as documented) at patient's floor/unit and/or counseling patient: (2) Status post right knee replacement: Problem comment: 07/11/2023, Dr. Marinelli Status: Acute Total time spent: Total time spent is greater than 50% in coordination of care (as documented) at patient's floor/unit and/or counseling patient: (3) Tobacco abuse: Problem comment: -just started smoking for the 1st time ever in November 2022 as a crutch for weight loss and giving up alcohol use. Discussed importance of cessation for overall health as well as for healing, in setting of diabetes and peripheral neuropathy. Status: Acute Total time spent: Total time spent is greater than 50% in coordination of care (as documented) at patient's floor/unit and/or counseling patient: (4) BPH loc w urin obs/LUTS: Problem comment: -noncompliant with flomax Status: Acute Total time spent: Total time spent is greater than 50% in coordination of care (as documented) at patient's floor/unit and/or counseling patient: (5) Type 2 diabetes mellitus: Problem comment: -06/28/23 A1c 5.2, 100# weight loss since starting Ozempic -Ozempic held for past week. Patient states he is done with his medication with no plan to resume it following discharge. -encourage diabetic diet. TID WM blood glucose. No sliding scale ordered -recommend outpatient Podiatry consult as discussed with patient Status: Acute Total time spent: Total time spent is greater than 50% in coordination of care (as documented) at patient's floor/unit and/or counseling patient: (6) Noncompliance with treatment: Problem comment: medical and medication noncompliance. patient self doctors/self medicates will adjust his cardiac medications based on his own research and reasoning with out consulting medical providers Status: Acute Total time spent: Total time spent is greater than 50% in coordination of care (as documented) at patient's floor/unit and/or counseling patient: (7) Thoracic aortic aneurysm without rupture: Problem comment: - CT angiogram of chest on 07/18/2023 demonstrates the following findings: 1. No pulmonary emboli. 4.4 centimeter ascending thoracic aortic aneurysm. 2. Bilateral bronchial wall thickening nonspecific but could be seen with bronchitis. - will need outpatient follow-up for this. Status: Acute Total time spent: Total time spent is greater than 50% in coordination of care (as documented) at patient's floor/unit and/or counseling patient: Plan I had a good discussion today with the patient. Reinforced all things we spoke about [address] prior to his admission. It is important that he has his cardiac issues addressed from a health and safety standpoint. He understands. It sounds like the hospitalist team has been able to connect with his chronic specialist. The chronic specialist is plan is see him again in near future. He will resume his Eliquis for DVT prophylaxis given his AFib history. I think this is appropriate even after is TKA. He may continue activities for the TKA as we previously described. Weightbear as tolerated right lower extremity. Walker ambulation assistance. Encourage knee range of motion. He is set to see the physical therapist on 07/22/2023. Finally, I counseled him regarding things to watch out for and ovoid in the early postoperative time. I greatly appreciate the hospitalist team and their evaluation, insight, and care for Merrill.
--- NOTE | 2023-07-20 13:09 | PC.NURSE ---
discharge. pt has to have information repeated several times. pain when up walking. he did not want pain meds. Cryocuff applied to right knee. dressing was d/c by MD. tele shows Afib. BPS done. he wants to go home. went over discharge packet with pt. went over meds, appointments, education and instructions. pt went over and signed personal belonging sheet. SL was d/c intact. and tele was d/c he got a w/c ride out with all paperwork and belongings .
== END 2023-07-20 12:45 | disposition home or self-care (01) ==
LOC: ED 20:33 → MEDSURG 21:20
PROVIDERS: Hospitalist; Admitting Provider Internal Medicine; Emergency Provider Family Medicine; PCP Family Medicine; Visit Provider Internal Medicine
DX: I48.91 Unspecified atrial fibrillation (principal); I48.0 Paroxysmal atrial fibrillation; I71.20 Thoracic aortic aneurysm, without rupture, unspecified; E11.9 Type 2 diabetes mellitus without complications; I95.89 Other hypotension; M79.606 Pain in leg, unspecified; R60.0 Localized edema; N40.1 Benign prostatic hyperplasia with lower urinary tract symptoms; G47.30 Sleep apnea, unspecified; Z72.0 Tobacco use; Z96.651 Presence of right artificial knee joint
CPT/HCPCS: 36415; 71045; 71275; 80048; 80053; 82803; 82962; 83605; 83735; 83880; 84439; 84443; 84484; 85025; 85027; 85379; 93005; 93225; 93226; 93306; 93970; 94761; 96361; 96374; 97110; 97161; 99285; 99291; G0378; A9270; J7030; J7120; Q9967

== ENCOUNTER 2023-08-05 09:00 | Outpatient (CLI) | payer MEDICARE, OTHER, SELFPAY ==
--- NOTE | 2023-08-05 09:15 | CRLHL7_ITS ---
For Patients: As a result of the Century Cures Act, medical imaging exams and procedure reports are released immediately into your electronic medical record. You may view this report before your referring provider. If you have questions, please contact your health care provider. INDICATION: History of thoracic aortic aneurysm on CT. COMPARISON: CT angiogram of the chest from 07/18/2023. TECHNIQUE: Ultrasound examination of the abdominal aorta was performed. FINDINGS: There is no evidence of abdominal aortic aneurysm. The maximal diameter is 2.4 centimeters proximally. Visualization of the aortic bifurcation was performed and this is normal. IMPRESSION: Normal ultrasound examination of the abdominal aorta with no evidence of aneurysmal dilatation. Dictated by Femi Mckeon MD @ 08/10/2023 11:53:06 PM (Electronically Signed)
--- NOTE | 2023-08-05 10:15 | CRLHL7_ITS ---
For Patients: As a result of the Century Cures Act, medical imaging exams and procedure reports are released immediately into your electronic medical record. You may view this report before your referring provider. If you have questions, please contact your health care provider. INDICATION: Normal labs. COMPARISON: None available. FINDINGS: Ultrasound examination of the thyroid gland was performed with a high-resolution linear transducer. The thyroid shows no sign of mass or contour abnormality. There is no sign of solid or cystic nodules. There is mild diffuse heterogeneity throughout both lobes of the thyroid. The right lobe measures 4.9 x 1.5 x 1.1 cm and the left lobe measures 4.9 x 1.6 x 1 cm. IMPRESSION: 1. Mild diffuse heterogeneity of both lobes of the thyroid. 2. Otherwise normal ultrasound examination of the thyroid gland with no sign of solid or cystic nodules. No sign of enlargement of either lobe of the thyroid. Dictated by Femi Mckeon MD @ 08/10/2023 11:51:51 PM (Electronically Signed)
== END 2023-08-05 09:01 | disposition home or self-care (01) ==
LOC: US 09:01
PROVIDERS: PCP Family Medicine; Visit Provider Family Medicine
DX: R79.89 Other specified abnormal findings of blood chemistry (principal)
CPT/HCPCS: 76536; 76706; 97110; 97140

== ENCOUNTER 2023-08-09 11:28 | Outpatient (CLI) | payer MEDICARE, OTHER, SELFPAY | END 2023-08-09 11:29 | disposition home or self-care (01) | PROVIDERS: PCP Family Medicine; Visit Provider Family Medicine | DX: R42 Dizziness and giddiness (principal); I48.91 Unspecified atrial fibrillation; R79.89 Other specified abnormal findings of blood chemistry; E21.3 Hyperparathyroidism, unspecified | CPT/HCPCS: 80053; 84439; 84443; 86376; 86800 ==

== ENCOUNTER 2023-08-31 13:45 | Outpatient (RCR) | payer MEDICARE, OTHER, SELFPAY ==
--- NOTE | 2023-06-27 10:08 | PT.OPE ---
PT [place] [facility] Eval PT [facility] Eval Start: 06/27/23 09:48 Freq: Status: Active Protocol: Document 06/27/23 09:48 TOREY (Rec: 06/27/23 09:52 TOREY [id number]) E-signed By Wilfredo Beckwith DPT, MS Physical Therapy Outpatient Evaluation Insurance Information Recert Due Date 09/25/23 Insurance Name Medicare B Medical Diagnosis Pre-op right total knee arthroplasty Treating Diagnosis R knee pain, decreased R knee ROM, decreased R LE flexibility and strength, and gait dysfunction Subjective Subjective Pt is a 67 y.o. male who presents to PT prior to R TKA on 07/11/23 at [facility]. Has struggled with worsening R knee pain over the past several years with difficulty bending his knee due to pain and stiffness. Has lost >120 lbs in the past year and improved his diet with decreased consumption of alcohol and is currently trying to quit smoking. Highly motivated to improve his quality of life and activity levels so he can play with his 2 granddaughters. Lives with his adult aged son in a handicap accessible home with his bedroom and bathroom on 1 level. His son works hvac design engineer , but he has multiple friends that are willing to help with his recovery. PMH includes severe R knee OA, DM-II, a-fib and HTN. AGGR factors: walking, squatting, kneeling, standing, in<>out of cars, sleeping, uneven surfaces, extended sitting. ALLEV factors: ice, rest. Pain Comments [id number] Current Work Status [employer] Occupation Mostly retired nash Preferred Name Rich Precautions Weight Bearing Status Weight Bear as Tolerated Therapy Limitations/Systems Review Not Limited Objective Functional Test Performed & Score LEFS: 8 Assessment Assessment/Impression Objectively pt displays decreased R LE flexibility and ROM, imbalance, gait dysfunction and B LE weakness. Good quality of R quad set with R knee ROM of 0-12-98 deg . Pt highly motivated to increase overall activity levels with less pain. He will benefit from continued skilled PT intervention to address these limitations, returning following R TKA. Primary Functional Limitations Walking, squatting, kneeling, standing, in<>out of cars, sleeping, uneven surfaces, extended sitting Plan of Care Rehabilitation Potential Excellent Physical Therapy Goals Short-term goals to be completed in 4 weeks: 1.Pt will display improved R LE strength as evidenced by ability to perform >12 SLR of good quality to improve quality of gait and progress to ambulation with single point cane. 2.Pt will report waking <3 times per night due to R knee pain to improve quality of sleep. Long-term goals to be completed in 10 weeks: 1.Pt will be independent and compliant with HEP 2. Pt will display improved R knee passive ROM > 0-0-120 deg to improve quality of gait. 3.Pt will display improved R hip flex, hip ABD, quad and hamstring strength >4/5 to improve quality of gait without assistive device. 4.Pt report >75% improvement in LEFS questionnaire to significantly improve sarath to daily activities. Coordination/Communication With Referral Source Treatment Plan/Direct Interventions Gait Training,Joint Mobilization,Manual Therapy, Neuromuscular Re-ed, Therapeutic Exercises Frequency/Duration One pre-op visit then 2 x per week for at least 10-16 visits , decreasing visit frequency, as able. Patient Will Be Discharged From Therapy Completion of LTG(s),Skills Plateau,Independent w/HEP, Independently Progressing Evaluation Billing Untimed Code Treatment Minutes 24 Complexity Moderate Certification Information Initial Certification Date 06/27/23 Ending Certification Date 09/25/23 Provider Signature Shows Agreement With POC & Medical Necessity Physician Signature & Date Requested Please Sign/Date Here Physician Comment/Change : Physician NPI Number #
== END 2023-12-29 23:59 | disposition home or self-care (01) ==
PROVIDERS: PCP Family Medicine; Visit Provider Orthopaedic Surgery Sports Medicine
DX: M17.11 Unilateral primary osteoarthritis, right knee (principal); Z96.651 Presence of right artificial knee joint; M75.02 Adhesive capsulitis of left shoulder; M25.511 Pain in right shoulder; M25.512 Pain in left shoulder; M25.561 Pain in right knee; Z74.09 Other reduced mobility; R26.9 Unspecified abnormalities of gait and mobility; R29.898 Other symptoms and signs involving the musculoskeletal system; Z51.89 Encounter for other specified aftercare
CPT/HCPCS: 97110; 97116; 97140; 97162; 97164

== ENCOUNTER 2023-09-29 09:53 | Outpatient (CLI) | payer MEDICARE, OTHER, SELFPAY ==
--- OUTSIDE RECORDS SUMMARY | 2023-09-29 09:59 | XMS_ITS | Clinical Summary ---
Author Name Unknown Organization [facility] Address [place], [place] [address] Care Team Providers Care Fire Lookout Name Role Phone Leonid Díaz MD Primary Care Provider [phone] Bc Amaro MD Unavailable [phone] Allergies No known active allergies Medications Medication Sig Dispensed Refills Start Date End Date Status apixaban (ELIQUIS) 5 mg tablet Take 1 Tablet (5 mg) by mouth two times daily. 0 12/10/2022 Active gabapentin (NEURONTIN) 300 mg capsule Take 1 Capsule (300 mg) by mouth once daily. 0 07/22/2023 Active metoprolol succinate (TOPROL XL) 25 mg Sustained-Release tabletIndications:A trial fibrillation with rapid ventricular response (HC) Take 1 Tablet (25 mg) by mouth once daily. 90 Tablet 3 08/01/2023 Active semaglutide (OZEMPIC) 2 mg/1.5 mL pen Inject 0.5 mg subcutaneous once weekly. 0 Active Active Problems Problem Noted Date Diagnosed Date Tiredness 02/13/2021 HTN (hypertension) 04/18/2020 Type 2 diabetes mellitus wit hout complication, without long-term current use of insulin 04/18/2020 Atrial fibrillation with rapid ventricular respo nse 04/18/2020 Acute systolic congestive heart failure 04/18/20 20 Obesity 04/18/2020 Encounters Date Type Department Care Team Description 09/22/2023 2:55 PM [employer] - 09/22/2023 3:50 PM [employer] [employer] Surgery [facility] [address] [place] [address] Bc Shi MD CARDIOVERSION 09/22/2023 2:52 PM [employer] Anesthesia Event [facility] [address] [facility] [address] Haim Petit MD 09/22/2023 1:33 PM [employer] - 09/22/2023 4:16 PM [employer] Hospital Encounter [facility] [address] [facility] [place] [place] [address] Bc Shi MD Discharge Disposition: Home Self Care 09/22/2023 Orders Only [facility] [address] [facility] [place] [phone] Amalia Greenberg NP <No scans attached> 09/22/2023 Travel 09/16/2023 Travel 08/31/2023 Telephone [facility] [address] [place] [address] [address] [place] [phone] Amalia Greenberg NP Abnormal Lab Results (TSH and recommendations) 08/30/2023 9:00 AM [employer] Office Visit [facility] [address] [facility] [address] [place] [phone] Amalia Greenberg NP CV General Cardiology Est (1 mo f/u, discuss cardioversion. Denies any cardiac symptoms today. ) 08/30/2023 Travel 08/02/2023 Telephone [facility] [address] [facility] [address] [place] [phone] Bc Shi MD Plan of care 08/01/2023 2:00 PM [employer] Office Visit [facility] [address] [facility] [address] [place] [phone] Bc Shi MD CV General Cardiology Est (F/u to cancelled cardioversion) 08/01/2023 Travel 07/26/2023 Telephone [facility] [address] [facility] [address] [place] [phone] Nathaniel Willson MD Atrial Fibrillation 07/26/[address] [facility] [address] [place] [address] [facility]: (1-Ord) Holter Report ([id number]) 07/26/[address] [facility] [address] [place] [address] Leonid Díaz MD <No scans attached> 07/22/2023 1:45 PM [employer] Office Visit [address] [place] [address] Nathaniel Willson MD CV General Cardiology Est (Post hosp f/u, afib. Denies any cardiac symptoms today. ) 07/22/2023 Telephone [facility] [address] [facility] [address] [place] [phone] Nathaniel Willson MD Appointment (cardioversion) 07/22/2023 Travel 07/20/2023 8:02 AM [employer] - 07/20/2023 11:59 PM [employer] Hospital Encounter [facility] [address] [address] Leonid Díaz MD 07/19/2023 5:00 PM [employer] Orders Only [facility] [address] [place] [address] 2 scans: (2-Ord) ECHO TTE COMPLETE WO CONTRAST ([id number]) from Last 3 Months Social History Tobacco Use Types Packs/Day Years Used Date Smoking Tobacco: Every Day Cigarettes Smokeless Tobacco: Never Tobacco Cessation:Ready to Q uit: Not Asked; Counseling Given: Not Answered Alcohol Use Standard Drinks/Week Comments Yes 0 (1 standard drink = 0.6 oz pur e alcohol) couple beer of the last month Social Connections Answer Date Recorded Frequency of Communication with Friends and Fami ly Not on file 08/15/2021 Financial Resource Strain Answer Date R ecorded Difficulty of Paying Living Expenses Not on file 08/15/2021 Difficulty of Paying Living Expenses Not on file 08/15/2021 Sex and Gender Information Value Date Recorded Sex Assigned at Not on file Gender Identity Not on file Sexual Orientation Not on file Obstetrics History Last Filed Vital Signs Vital Sign Reading Time Taken Comments Blood Pressure 111/80 09/22/2023 4:00 PM [employer] Pulse 64 09/22/2023 4:00 PM [employer] Temperature 36.1 ??C (97 ??F) 09/22/2023 1:55 PM [employer] Respiratory Rate 16 09/22/2023 4:00 PM [employer] Oxygen Saturation 98% 09/22/2023 4:00 PM [employer] Inhaled Oxygen Concentration - - Weight 127 kg (280 lb) 09/22/2023 1:55 PM [employer] Height 198.1 cm (6' 6) 09/22/2023 1:55 PM [employer] Body Mass Index 32.36 09/22/2023 1:55 PM [employer] Plan of Treatment Upcoming Encounters Date Type Department Care Team (Late st Contact Info) Description 10/21/2023 9:00 AM [employer] Office Visit [facility] [address] [facility] [address] [place] [address] Amalia Greenberg, KETTY [address] [place], [place] [id number] Health Maintenance Due Date Last Done Comments COVID-19 vaccine series (#1) 03/12/1958 Pneumococcal series for age 65+ (1 of 2 - PCV) 1963 Tdap 1968 Depression screening for age 12+ 1969 Hepatitis C screening for ag e 18-79 1975 Tetanus booster 1977 Colonoscopy through age 75 2002 Zoster (shingles) series for age 50+ (1 of 2) 2007 AAA screening age 65-74 2022 Medicare Wellness for age 65+ 2022 Influenza for age 65+ 04/15/2023 BMI (ht and wt on same day) for age 18+ 08/30/2024 08/30/2023, 08/01/2023, 07/22/2023, Additional history exists Lipids for age 45-75 04/19/2025 04/19/2020 Procedures Procedure Name Priority Date/Time Associated Diagnosis Comments CARDIOVERSION 09/22/2023 2:46 PM [employer] afib Case Notes COMING AT 1345 POTASSIUM GIA 09/22/2023 2:03 PM [employer] EKG 12 LEAD Preop 09/22/2023 2:02 PM [employer] PROTIME-INR GIA 09/22/2023 2:02 PM [employer] SCAN-CARDIAC STRIP 09/22/2023 12 :00 AM [employer] SCAN-CARDIAC STRIP 09/22/2023 12 :00 AM [employer] SCAN-CARDIAC STRIP 09/22/2023 12 :00 AM [employer] EKG 12 LEAD Routine 08/01/2023 2:06 PM [employer] Atrial fibrillation with rapid ventricular response (HC) HOLTER MONITOR 48 HOURS Routine 07/27/2023 12:00 AM [employer] Atrial fibrillation (HC) EKG 12 LEAD Routine 07/22/2023 2:45 PM [employer] Atrial fibrillation with rapid ventricular response (HC) ECHO TTE COMPLETE WO CONTRAST Routine 07/19/2023 4:54 PM [employer] A-fib (HC) Atrial fibrillation with RVR (HC) from Last 3 Months Results * Potassium (09/22/2023 2:03 PM [employer]) POTASSIUM 5.0 3.5 - 5.1 mmol/L 09/22/2023 2:31 PM [employer] [facility] Blood BLOOD SPECIMEN / Unknown Butterfly / Unknown 09/22/2023 2:03 PM [employer] 09/22/2023 2:08 PM [employer] Bc Hernandez MD CHEMISTRY [address] [address] * (ABNORMAL) Protime - INR (09/22/2023 2:02 PM [employer]) INR 1.3(H) <1.3 09/22/2023 2:17 PM [employer] [facility] PROTIME 14.1(H) 10.3 - 12.3 sec 09/22/2023 2:17 PM [employer] [facility] Blood BLOOD SPECIMEN / Unknown Butterfly / Unknown 09/22/2023 2:02 PM [employer] 09/22/2023 2:08 PM [employer]TER [employer] Narrative [facility] - 09/22/2023 2:17 PM [employer] ?Therapeutic Range 2.0-3.0 for most anticoagulated patients 2.5-3.5 or 4.0 for high risk patients The INR is only used for patients on stable oral anticoagulant therapy. It makes no significant contribution to the diagnosis or treatment of patients whose Protime is prolonged for other reasons. INR results are increased when heparin levels exceed 1.0 U/mL, which corresponds to an aPTT >125 seconds if the patient is on UFH. Bc Hernandez MD HEMATOLOGY [address] [address] * SCAN-CARDIAC STRIP (09/22/2023 12:00 AM [employer]) Narrative 09/22/2023 12:00 AM [employer]TER [employer] Ordered by an unspecified provider. Other Clinical Staff OTHER * SCAN-CARDIAC STRIP (09/22/2023 12:00 AM [employer]) Narrative 09/22/2023 12:00 AM [employer] Ordered by an unspecified provider. Other Clinical Staff OTHER * SCAN-CARDIAC STRIP (09/22/2023 12:00 AM [employer]) Narrative 09/22/2023 12:00 AM [employer] Ordered by an unspecified provider. Other Clinical Staff OTHER * EKG 12 LEAD (08/01/2023 2:06 PM [employer]) Only the most recent of2 resultswithin the time period is included. Interpretation Atrial fibrillation with rapid ventricular response Nonspecific ST and T wave abnormality Abnormal ECG When compared with ECG of 22-JUL-2023 14:45, Inverted T waves have replaced nonspecific T wave abnormality in Inferior leads Nonspecific T wave abnormality, worse in Lateral leads Ventricular Rate 112 BPM Atrial Rate BPM P-R Interval ms QRS Duration 92 ms QT 286 ms QTc 390 ms P [place] degrees R [place] 62 degrees T [place] -38 degrees 08/01/2023 2:06 PM [employer] 08/10/2023 7:13 PM [employer] Bc Hernandez MD EKG ORD * HOLTER MONITOR 48 HOURS (07/27/2023 12:00 AM [employer]) Leonid Díaz MD CARDIAC SERVICES ORD * ECHO TTE COMPLETE WO CONTRAST (07/19/2023 4:54 PM [employer]OUNTER [employer]) Pathologist [facility] AORTIC VALVE MEAN PG 3 mmHg EJECTION FRACTION 64 % LVEDD 5.5 cm Anatomical Region Laterality Modality Ultrasound 07/19/2023 4:23 PM [employer] Narrative 07/19/2023 5:15 PM [employer] ECHOCARDIOGRAM SALINAS Owen YOLANDA ? Accession#: ?? [id number] : ?1955 67 years Study Date: ?? 07/19/2023 4:23:33 PM Gender: M ?BP: ? 103/91 mmHg Height: 198.00 cm ?BSA: ?2.59 m? ? ? Weight: 125.00 kg ?Tech: ? MJW ? Referring MD: AUGIE BANGURA Site: ? [facility] Reading Location: [facility] Patient Location: Outpatient. Procedure: 2D, Color Doppler and Spectral Doppler. Indication for study: A Fib Cardiac Rhythm: Irregular.Study quality: Fair. Imaging limitations: This study was subject to imaging limitations due to body habitus. Final Impressions: 1. Normal left ventricular size, normal wall thickness, normal global systolic function, calculated EF of 64 %. 2. Severely enlarged left atrium. 3. Right ventricular cavity size is normal, global systolic RV function is normal. 4. The ascending aorta is dilated with a maximal diameter of 4.2 cm. 5. The aortic sinus is dilated with a maximal diameter of 4.1 cm. Comparison Compared to prior exam images and report of 12/01/2022, there has been no significant change. Chamber Sizes and Function Normal left ventricular size, normal wall thickness, normal global systolic function, calculated EF of 64 %. Left atrial size is severely enlarged. Right ventricular cavity size is normal, global systolic RV function is normal. RV wall thickness is normal. The right atrium is normal. Right atrial volume index is 29 ml/m? ? ?. Right atrial area is 25 cm? ? ?. The pulmonary artery is of normal size and origin. The sinus of Valsalva is dilated. The ascending aorta is dilated. Valves, RV Pressures and Diastolic Function The aortic valve is trileaflet, no stenosis and no regurgitation. The mitral valve is normal in structure, no mitral regurgitation. Indeterminate pattern of LV diastolic filling. The tricuspid valve is normal in structure. Tricuspid regurgitation is trace regurgitation. The pulmonic valve is normal. Trace pulmonary regurgitation. Masses, Effusion, Shunts There is no pericardial effusion. The inferior vena cava is normal sized, respiratory size variation greater than 50%. Interatrial septum is not well visualized. MEASUREMENTS AND CALCULATIONS 2-D Measurements and LV Function: LVID (d) 5.4 cm Planimetered EF 64 % LVID (s) 4.2 cm LV FS% (2D) ? 23 % IVS (d) ??1.0 cm LVOT diameter ?? 2.5 cm LVPW (d) 1.2 cm HR ?77 bpm Ao Sinus 4.1 cm LA Vol index ?56 ml/m2 Asc Ao ?? 4.2 cm RA Vol index ?29 ml/m2 LA ? 5.6 cm RA area ? 25 cm?RV Max 4C (d) ?? 4.2 cm Diastology: Mitral ?Tissue Doppler E Peak 1.1 m/s ??e', Septum ? 0.11 m/s DT ? 179 msec e', Lateral ?0.13 m/s ?E/e' Average ?? 8.65 Aortic Valve: Vmax ? 1.0 m/s ??PARAG (V) ?? 4.03 cm? ? ? VTI ?0.18 m ?? PARAG (I) ?? 4.07 cm? ? ? LVOT V max ? 0.8 m/s ??Max PG ?4 mmHg LVOT VTI ? 0.15 m ?? Mean PG ?? 3 mmHg SV ? 75 ml ?Dim Index 0.84 SV index ? 29 ml/m? ? ? CO ?5.7 l/min AV Ejection Time 0.24 sec CI ?2.2 l/min/m? ? ? AV Flow Rate ? 308 ml/s Mitral Valve: MVA ?4.2 cm? ? ? MV P 1/2 52 msec Tricuspid Valve and estimated PA pressures: TAPSE 2.6 cm . This study was interpreted by an [facility] accredited facility. CC: [facility] (med records) [facility], Med/Surg - IP [facility]. ??Final ?? Procedure Note Bc Shi MD - 07/19/2023 ECHOCARDIOGRAM SALINAS GUERRERO : 1955 67 years Study Date: 07/19/2023 4:23:33 PM Gender: M BP: 103/91 mmHg Height: 198.00 cm BSA: 2.59 m? ? ? Weight: 125.00 kg Tech: AARON Referring MD: AUGIE BANGURA Site: [facility] Reading Location: [facility] Patient Location: Outpatient. Procedure: 2D, Color Doppler and Spectral Doppler. Indication for study: A Fib Cardiac Rhythm: Irregular.Study quality: Fair. Imaging limitations: This study was subject to imaging limitations due tobody habitus. Final Impressions: 1. Normal left ventricular size, normal wall thickness, normal globalsystolic function, calculated EF of 64 %. 2. Severely enlarged left atrium. 3. Right ventricular cavity size is normal, global systolic RV functionis normal. 4. The ascending aorta is dilated with a maximal diameter of 4.2 cm. 5. The aortic sinus is dilated with a maximal diameter of 4.1 cm. Comparison Compared to prior exam images and report of 12/01/2022, there has been nosignificant change. Chamber Sizes and Function Normal left ventricular size, normal wall thickness, normal globalsystolic function, calculated EF of 64 %. Left atrial size is severelyenlarged. Right ventricular cavity size is normal, global systolic RVfunction is normal. RV wall thickness is normal. The right atrium isnormal. Right atrial volume index is 29 ml/m? ? ?. Right atrial area is 25cm? ? ?. The pulmonary artery is of normal size and origin. The sinus ofValsalva is dilated. The ascending aorta is dilated. Valves, RV Pressures and Diastolic Function The aortic valve is trileaflet, no stenosis and no regurgitation. Themitral valve is normal in structure, no mitral regurgitation.Indeterminate pattern of LV diastolic filling. The tricuspid valve isnormal in structure. Tricuspid regurgitation is trace regurgitation. Thepulmonic valve is normal. Trace pulmonary regurgitation. Masses, Effusion, Shunts There is no pericardial effusion. The inferior vena cava is normal sized,respiratory size variation greater than 50%. Interatrial septum is notwell visualized. MEASUREMENTS AND CALCULATIONS 2-D Measurements and LV Function: LVID (d) 5.4 cm Planimetered EF 64 % LVID (s) 4.2 cm LV FS% (2D) 23 % IVS (d) 1.0 cm LVOT diameter 2.5 cm LVPW (d) 1.2 cm HR 77 bpm Ao Sinus 4.1 cm LA Vol index 56 ml/m2 Asc Ao 4.2 cm RA Vol index 29 ml/m2 LA 5.6 cm RA area 25 cm? ? ? RV Max 4C (d) 4.2 cm Diastology: Mitral Tissue Doppler E Peak 1.1 m/s e', Septum 0.11 m/s DT 179 msec e', Lateral 0.13 m/s E/e' Average 8.65 Aortic Valve: Vmax 1.0 m/s PARAG (V) 4.03 cm? ? ? VTI 0.18 m PARAG (I) 4.07 cm? ? ? LVOT V max 0.8 m/s Max PG 4 mmHg LVOT VTI 0.15 m Mean PG 3 mmHg SV 75 ml Dim Index 0.84 SV index 29 ml/m? ? ? CO 5.7 l/min AV Ejection Time 0.24 sec CI 2.2 l/min/m? ? ? AV Flow Rate 308 ml/s Mitral Valve: MVA 4.2 cm? ? ? MV P 1/2 52 msec Tricuspid Valve and estimated PA pressures: TAPSE 2.6 cm . This study was interpreted by an [facility] accredited facility. CC: [facility] (med records) [facility], Med/Surg - IP [facility]. Final Augie Bangura MD ECHO ORD from Last 3 Months Advance Directives Latest Code Status on File Code Status Date Activated Date Inactivated Comments Full Code 09/22/2023 1:38 PM 09/22/2023 6:24 PM Question Answer Comments Code Status Discussion: Unable to Assess Preferences, Provider to review later Code Status History Code Status Date Activated Date Inactivated Comments Full Code 04/18/2020 7:00 PM 04/23/2020 9:44 PM Question Answer Comments Code Status Discussion: Discussed Care Teams Fire Lookout Relationship Specialty Start Date End Date Leonid íDaz MD [address] [place] [address] PCP - General Family Practice 04/17/20 Bc Amaro MD [address] [facility] [address] [place] [address] Cardiovascular Disease 01/23/21
== END 2023-09-29 09:54 | disposition home or self-care (01) ==
PROVIDERS: PCP Family Medicine; Visit Provider Family Medicine
DX: E11.9 Type 2 diabetes mellitus without complications (principal); E29.1 Testicular hypofunction; R94.6 Abnormal results of thyroid function studies
CPT/HCPCS: 80053; 82043; 82570; 84270; 84402; 84403; 84443

== ENCOUNTER 2023-12-06 08:46 | Outpatient (CLI) | payer MEDICARE, OTHER, SELFPAY ==
--- OUTSIDE RECORDS SUMMARY | 2023-12-06 08:51 | XMS_ITS | Clinical Summary ---
Author Name Unknown Organization [employer] [facility] Address [place], [place] [address] Care Team Providers Care Perforator Loader Name Role Phone Leonid Díaz MD Primary Care Provider [phone] Bc Amaro MD Unavailable [phone] Allergies No known active allergies Medications Medication Sig Dispensed Refills Start Date End Date Status apixaban (ELIQUIS) 5 mg tablet Take 1 Tablet (5 mg) by mouth two times daily. 0 12/10/2022 Active gabapentin (NEURONTIN) 300 mg capsule Take 1 Capsule (300 mg) by mouth once daily. 0 07/22/2023 Active semaglutide (OZEMPIC) 2 mg/1.5 mL pen Inject 0.5 mg subcutaneous once weekly. Active metoprolol succinate (TOPROL XL) 50 mg sustained-release tabletIndications :Atrial fibrillation, unspecified type (HC) Take 1 Tablet (50 mg) by mouth once daily. 11/14/2023 Active metoprolol succinate (TOPROL XL) 50 mg sustained-release tablet Take 50 mg by mouth once daily. 10/12/2023 4 Discontinue d(*Med complete/Re gimen complete/[place] of care change) sotaloL (BETAPACE) 80 mg tabletIndications :Atrial fibrillation, unspecified type (HC) Take 1 Tablet (80 mg) by mouth two times daily before meals. 60 Tablet 2 11/11/2023 4 Discontinue d(*Med complete/Re gimen complete/[place] of care change) Active Problems Problem Noted Date Diagnosed Date Tiredness 02/13/2021 HTN (hypertension) 04/18/2020 Type 2 diabetes mellitus wit hout complication, without long-term current use of insulin 04/18/2020 Atrial fibrillation with rapid ventricular respo nse 04/18/2020 Acute systolic congestive heart failure 04/18/20 20 Obesity 04/18/2020 Encounters Date Type Department Care Team Description 11/21/2023 11:14 AM CDT Anesthesia Event [address] [place] [address] Zahira Hdz MD 11/21/2023 11:10 AM CDT - 11/21/2023 12:05 PM CDT Surgery [address] [place] [address] Bc Shi MD CARDIOVERSION 11/21/2023 9:36 AM CDT - 11/21/2023 12:40 PM CDT Hospital Encounter [address] [place] [address] Bc Shi MD Discharge Disposition: Home Self Care 11/21/2023 Travel 11/15/2023 Travel 11/14/[address] [phone] Amalia Greenberg NP Medication Management 11/11/[address] [phone] Amalia Greenberg NP Questions (Medication at incorrect pharmacy. ) 10/21/2023 9:00 AM WORK ORDER CLERK Office Visit [address] [place] [phone] Amalia Greenberg NP CV General Cardiology Est (F/U to Cardioversion; Pt has been feeling great since cardioversion) 10/21/2023 Travel 09/22/2023 2:55 PM WORK ORDER CLERK - 09/22/2023 3:50 PM WORK ORDER CLERK Surgery [facility] [address] [facility] [place] [address] Bc Shi MD CARDIOVERSION 09/22/2023 2:52 PM WORK ORDER CLERK Anesthesia Event [facility] [address] [facility] [place] [address] Haim Petit MD 09/22/2023 1:33 PM WORK ORDER CLERK - 09/22/2023 4:16 PM WORK ORDER CLERK Hospital Encounter [facility] [address] [facility] [place] [address] Bc Shi MD Discharge Disposition: Home Self Care 09/22/2023 Orders Only [facility] - [address] [place] [phone] Amalia Greenberg NP <No scans attached> 09/22/2023 Travel 09/16/2023 Travel from Last 3 Months Social History Tobacco [...] Sign Reading Time Taken Comments Blood Pressure 118/77 11/21/2023 12:25 PM CDT Pulse 68 11/21/2023 12:25 PM CDT Temperature 36.3 ??C (97.4 ??F) 11/21/2023 11:55 AM C DT Respiratory Rate 16 11/21/2023 12:25 PM CDT Oxygen Saturation 98% 11/21/2023 12:25 PM CDT Inhaled Oxygen Concentration - - Weight 127.5 kg (281 lb) 11/21/2023 9:59 AM CDT Height 198.1 cm (6' 6) 11/21/2023 9:59 AM CDT Body Mass Index 32.47 11/21/2023 9:59 AM CDT Plan of Treatment Upcoming Encounters Date Type Department Care Team (Late st Contact Info) Description 12/14/2023 11:00 AM CDT Office Visit [facility] [place] [address] [facility] [address] [place] [phone] Amalia Greenberg, KETTY [address] [place] [address] Health Maintenance Due Date Last Done Comments Pneumococcal series for age 65+ (1 of 2 - PCV) 1963 Tdap 1968 Depression screening for age 12+ 1969 Hepatitis C screening for ag e 18-79 1975 Tetanus booster 1977 Colonoscopy through age 75 2002 Zoster (shingles) series for age 50+ (1 of 2) 2007 AAA screening age 65-74 2022 Medicare Wellness for age 65+ 2022 COVID-19 vaccine series ( - 2022- season) 2023 Influenza for age 65+ 04/15/2024 BMI (ht and wt on same day) for age 18+ 10/20/2024 10/21/2023, 08/30/2023, 08/01/2023, Additional history exists Lipids for age 45-75 04/19/2025 04/19/2020 Procedures Procedure Name Priority Date/Time Associated Diagnosis Comments EKG 12 LEAD Routine 11/21/2023 11:30 AM CDT CARDIOVERSION Class E Urgent 11/21/2023 11:08 AM CDT Sinus Rhythm Case Notes Dr. 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 1500 GLUCOSE METER Timed 11/21/2023 10:04 AM CDT PROTIME-INR GIA 11/21/2023 10:04 AM CDT POTASSIUM GIA 11/21/2023 10:03 AM CDT EKG 12 LEAD Preop 11/21/2023 9:56 AM CDT SCAN-CARDIAC STRIP 11/21/2023 12:00 AM CDT EKG 12 LEAD Routine 10/21/2023 8:51 AM WORK ORDER CLERK Atrial fibrillation, unspecified type (HC) CARDIOVERSION 09/22/2023 2:46 PM WORK ORDER CLERK afib Case Notes COMING AT 1345 POTASSIUM GIA 09/22/2023 2:03 PM WORK ORDER CLERK EKG 12 LEAD Preop 09/22/2023 2:02 PM WORK ORDER CLERK PROTIME-INR GIA 09/22/2023 2:02 PM WORK ORDER CLERK SCAN-CARDIAC STRIP 09/22/2023 12:00 AM WORK ORDER CLERK SCAN-CARDIAC STRIP 09/22/2023 12:00 AM WORK ORDER CLERK SCAN-CARDIAC STRIP 09/22/2023 12:00 AM WORK ORDER CLERK LIPID PANEL Early AM 04/19/2020 6:48 AM CDT from Last 3 Months or Most Recently Relevant to Health Maintenance Results * EKG 12 LEAD (11/21/2023 11:30 AM CDT) Only the most recent of4 resultswithin the time period is included. Interpretation Sinus rhythm with Premature atrial complexes Otherwise normal ECG BEYOND NOW Ventricular Rate 72 BPM BEYOND NOW Atrial Rate 72 BPM BEYOND NOW P-R Interval 186 ms BEYOND NOW QRS Duration 88 ms BEYOND NOW QT 410 ms BEYOND NOW QTc 448 ms BEYOND NOW P [place] 58 degrees BEYOND NOW R [place] 54 degrees BEYOND NOW T [place] 45 degrees BEYOND NOW 11/21/2023 11:3 0 AM CDT 12/05/2023 6:13 PM CDT Bc Hernandez MD EKG ORD Performing Organization Address City/[facility] Co de Phone Number BEYOND NOW [place], [place] * (ABNORMAL) Protime - INR (11/21/2023 10:04 AM CDT) Only the most recent of2 resultswithin the time period is included. INR 1.2 <1.3 11/21/2023 10:34 AM CDT [facility] PROTIME 13.4(H) 10.3 - 12.3 sec 11/21/2023 10:34 AM CDT [facility] Blood BLOOD SPECIMEN / Unknown Venipuncture / Unknown 11/21/2023 10:04 AM CDT 11/21/2023 10:25 AM CDT Narrative [facility] - 11/21/2023 10:34 AM CDT ?Therapeutic Range 2.0-3.0 for most anticoagulated patients [...] is on UFH. Bc Hernandez MD HEMATOLOGY Performing Organization Address City/[facility] Co de Phone Number [address] [address] * (ABNORMAL) GLUCOSE METER (11/21/2023 10:04 AM CDT) GLUCOSE METER 103(H) 65 - 100 mg/dL 11/21/2023 10:05 AM CDT [facility] Blood BLOOD SPECIMEN / Unknown 11/21/2023 10:04 AM CDT 11/21/2023 10:04 AM CDT Bc Hernandez MD CHEMISTRY Performing Organization Address [facility] Co de Phone Number [address] [address] * Potassium (11/21/2023 10:03 AM CDT) Only the most recent of2 resultswithin the time period is included. POTASSIUM 4.7 3.5 - 5.1 mmol/L 11/21/2023 11:02 AM CDT [facility] Blood BLOOD SPECIMEN / Unknown Venipuncture / Unknown 11/21/2023 10:03 AM CDT 11/21/2023 10:25 AM CDT Bc Hernandez MD CHEMISTRY Performing Organization Address [facility] Co de Phone Number [address] [address] * SCAN-CARDIAC STRIP (11/21/2023 12:00 AM CDT) Narrative 11/21/2023 12:00 AM CDT Ordered by an unspecified provider. Other Clinical Staff OTHER * SCAN-CARDIAC STRIP (09/22/2023 12:00 AM WORK ORDER CLERK) Narrative 09/22/2023 12:00 AM WORK ORDER CLERK Ordered by an unspecified provider. Other Clinical Staff OTHER * SCAN-CARDIAC STRIP (09/22/2023 12:00 AM WORK ORDER CLERK) Narrative 09/22/2023 12:00 AM WORK ORDER CLERK Ordered by an unspecified provider. Other Clinical Staff OTHER * SCAN-CARDIAC STRIP (09/22/2023 12:00 AM WORK ORDER CLERK) Narrative 09/22/2023 12:00 AM WORK ORDER CLERK Ordered by an unspecified provider. Other Clinical Staff OTHER * (ABNORMAL) Lipid Panel (04/19/2020 6:48 AM CDT) CHOLESTEROL,TOTAL 202(H) 100 - 199 mg/dL 04/19/2020 7:17 AM CDT [facility] TR[facility] LABORATORY TRIGLYCERIDES 188(H) <150 mg/dL 04/19/2020 7:17 AM CDT [facility] HDL CHOLESTEROL 33(L) >40 mg/dL 0 7:17 AM CDT [facility] [employer] [facility] LABORATORY NON-HDL CHOLESTEROL 169(H) <145 mg/dl 04/19/2020 7:17 AM CDT [facility] [employer] [facility] TRAL LABORATORY CHOL/HDL RATIO 6.12(H) <4.50 04/19/2020 7:17 AM CDT [facility] [employer] [facility] LDL CHOLESTEROL 131(H) <=130 mg/dL 04/19/2020 7:17 AM CDT [facility] [employer] [facility]ATORY-[facility] TRAL LABORATORY PROVIDER ORDERED STATUS RANDOM 04/19/2020 7:17 AM CDT [facility] [employer] [facility] Blood BLOOD SPECIMEN / Unknown Venipuncture / Unknown 04/19/2020 6:48 AM CDT 04/19/2020 6:54 AM CDT Brandt Melara MD CHEMISTRY [facility] [address] [place] [address], from Last 3 Months or Most Recently Relevant to Health Maintenance Advance Directives * Full Code (Latest Code Status on File) Date Activated Date Inactivated Comments 11/21/2023 9:56 AM 11/21/2023 3:00 PM Question Answer Comments Code Status Discussion: Unable to Assess Preferences, Provider to review later * Full Code Date Activated Date Inactivated Comments 11/21/2023 9:56 AM 11/21/2023 9:56 AM Question Answer Comments Code Status Discussion: Unable to Assess Preferences, Provider to review later * Full Code Date Activated Date Inactivated Comments 09/22/2023 1:38 PM 09/22/2023 6:24 PM Question Answer Comments Code Status Discussion: Unable to Assess Preferences, Provider to review later * Full Code Date Activated Date Inactivated Comments 04/18/2020 7:00 PM 04/23/2020 9:44 PM Question Answer Comments Code Status Discussion: Discussed Care Teams Perforator Loader Relationship Specialty Start Date End Date Leonid Díaz MD [address] [place] [address] PCP - General Family Practice 04/17/20 Bc Amaro MD [address] [facility] [address] [place] [address] Cardiovascular Disease 01/23/21
--- NOTE | 2023-12-06 09:15 | MR_ITS ---
[facility] [address] [facility] [address] Phone:?[phone] Fax:?[phone] Referring Physician Information: Sergei Marinelli M.D. [address] [facility] [address] Phone:?[phone] Fax:?[phone] Patient:Lee Meza D.O.B:?1955 Sex:?Male Phone:?[phone] [facility] MRN:?[id number] Exam Date:?12/06/2023 EXAM: MRI of the LEFT SHOULDER WITHOUT CONTRAST CLINICAL HISTORY: Unspecified rotator cuff tear or rupture of the left shoulder. COMPARISONS: Plain radiographs 11/25/2023. TECHNICAL: MRI sequences of the left shoulder: Axials: PD, T2 Coronals: PD, STIR, T2 Sagittals: PD, T2 SEDATION: None CONTRAST: None FINDINGS: Bones: No fracture or suspicious bone marrow signal abnormality. Coracoacromial arch: Acromion: No os acromiale. Type I-II acromion. Acromiohumeral space: The bony distance is unremarkable. Acromioclavicular joint: Mild to moderate degenerative changes. Coracoclavicular ligament: The coracoclavicular ligament is intact. Rotator cuff muscles/tendons: Supraspinatus: 5 x 5 mm low-grade partial-thickness intrasubstance tear within the supraspinatus tendon insertional footprint contacts the cortical insertional surface and is superimposed upon mild supraspinatus tendinopathy best seen on coronal series 4 image 11 and sagittal series 8 image 5. 9 x 11 x 19 mm focal region of moderate atrophy within the anterior portion of the supraspinatus muscle. Infraspinatus: The infraspinatus tendon and muscle are intact. Teres minor: The teres minor tendon and muscle are intact. Subscapularis: The subscapularis tendon and muscle are intact. Labrum and glenohumeral joint: There is fraying/ill-defined tearing of the superior and posterosuperior portions of the labrum. Small glenohumeral joint effusion. Extensive grade 3 chondral thinning is suspected over much of the humeral head although it must be noted that smooth chondral thinning is not well evaluated by MRI. There is edema-like signal within and thickening of the inferior glenohumeral ligament/glenohumeral joint capsule. There is marked soft tissue thickening within the rotator interval. Proximal biceps tendon, long head and short heads: The long and short heads of the proximal biceps tendon are intact. Bursae: Subacromial/subdeltoid: Mild bursitis. Subcoracoid: No convincing subcoracoid bursal thickening/bursitis. IMPRESSION: 1. The most striking findings in this case are those highly associated with adhesive capsulitis. 2. 5 x 5 mm low-grade partial-thickness intrasubstance tear within the supraspinatus tendon insertional footprint contacts the cortical insertional surface and is superimposed upon mild supraspinatus tendinopathy. 9 x 11 x 19 mm focal region of moderate atrophy within the anterior portion of the supraspinatus muscle. 3. Fraying/ill-defined tearing of the superior and posterosuperior portions of the labrum. Extensive grade 3 chondral thinning is suspected over much of the humeral head although it must be noted that smooth chondral thinning is not well evaluated by MRI. 4. Mild subacromial/subdeltoid bursitis. 5. Mild to moderate acromioclavicular joint osteoarthritis. 6. Small glenohumeral joint effusion. RCB Electronically signed on 12/06/2023 11:53:00 AM by Brandon Fuller M.D.
== END 2023-12-06 08:47 | disposition home or self-care (01) ==
PROVIDERS: PCP Family Medicine; Visit Provider Orthopaedic Surgery Sports Medicine
DX: M75.102 Unspecified rotator cuff tear or rupture of left shoulder, not specified as traumatic (principal); M75.02 Adhesive capsulitis of left shoulder; M75.52 Bursitis of left shoulder; M19.012 Primary osteoarthritis, left shoulder; M25.412 Effusion, left shoulder
CPT/HCPCS: 73221

== ENCOUNTER 2023-12-13 10:42 | Outpatient (RCR) | payer MEDICARE, OTHER, SELFPAY ==
--- NOTE | 2023-12-16 08:47 | PT.OPE ---
[facility]patient Eval PT [facility] Outpatient Eval Start: 12/13/23 14:53 Freq: Status: Active Protocol: Document 12/13/23 14:53 TOREY (Rec: 12/13/23 14:55 TOREY [id number]) E-signed By Wilfredo Beckwith DPT, MS Physical Therapy Outpatient Evaluation Insurance Information Recert Due Date 03/12/24 Insurance Name Medicare B Medical Diagnosis Adhesive capsulitis, left shoulder; R shoulder pain; L shoulder pain Treating Diagnosis B (L>R) shoulder pain, B shoulder hypomobility, B scapular dyskinesis, decreased B UE flexibility and ROM, and B UE weakness. Subjective Subjective Pt presents to PT with c/o B ( L>R) shoulder pain of insidious onset over the past 4-6 months after limited activity levels following R TKA surgery and flare up of A- fib sxs. 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 Describes sxs as a a sharp pinching, aching sensation reaching upwards, outwards and behind his back. Surprised how weak B UE became during his TKA recovery since he has lifted heavy objects throughout his life without issue. Avoiding aggravating activities recently to avoid further injury. Recent MRI found partial L supraspinatus tear and findings associated with adhesive capsulitis. PMH includes A-fib with possible future ablation. AGGR factors: lifting, reaching upwards, outwards and behind his back, and sleeping on B (L>R sides). ALLEV factors: rest, Tylenol, ice. 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 + B shoulder impingement testing with pain with palpation of SS insertion and LH of biceps. Painful arc with B (L>R) shoulder ABD with pain at end ROM flex. Limited B shoulder functional IR with pec tightness and B shoulder hypomobility contributing to sxs. Objectively pt displays decreased B shoulder flexibility and ROM, B glenohumeral hypomobility, B scapular dyskinesis, and B UE weakness and decreased endurance Emphasized the importance of not pushing exercises, lifting or activities into pain and discomfort to avoid further irritation/inflammation. Pt responded well to joint mobs, stretching and strengthening exercises with decreased pain and improved ROM in all directions following today?s session. He will benefit from continued skilled PT intervention to address these limitations. Primary Functional Limitations Lifting, reaching upwards, outwards and behind his back, and sleeping on B (L>R sides) Plan of Care Rehabilitation Potential Excellent Physical Therapy Goals Short-term goals to be completed in 4 weeks: 1. Pt will report improved quality of sleep not waking due to B shoulder pain for >3 consecutive nights. 2. Pt will be able to lift dishes into overhead cabinets with B shoulder pain <3/10. Long-term goals to be completed in 10 weeks: 1. Pt will be independent and compliant with his HEP 2. Pt will display improved strength for B external and internal rotation, mid and low trap strength of 5/5 to improve tolerance to lifting objects at work and with all daily activities. 3. Pt will report >50% improvement in quick DASH questionnaire to significantly improve sarath to daily activities. 4. Pt will display >50% improvement in B functional IR AROM to tuck in shirts. Coordination/Communication With Referral Source Treatment Plan/Direct Interventions Joint Mobilization,Manual Therapy,Therapeutic Exercises Frequency/Duration 1x per week for 6-10 visits, decreasing visit frequency as able. Patient Will Be Discharged From Therapy Completion of LTG(s),Skills Plateau,Independent w/HEP, Independently Progressing Evaluation Billing Untimed Code Treatment Minutes 24 Complexity Moderate Certification Information Initial Certification Date 12/13/23 Ending Certification Date 03/12/24 Provider Signature Shows Agreement With POC & Medical Necessity Physician Signature & Date Requested Please Sign/Date Here Physician Comment/Change : Physician NPI Number #
== END 2024-04-11 23:59 | disposition home or self-care (01) ==
PROVIDERS: PCP Family Medicine; Visit Provider Orthopaedic Surgery Sports Medicine
DX: M75.02 Adhesive capsulitis of left shoulder (principal); M25.511 Pain in right shoulder; M25.512 Pain in left shoulder; Z74.09 Other reduced mobility; M89.8X1 Other specified disorders of bone, shoulder; R29.898 Other symptoms and signs involving the musculoskeletal system; Z51.89 Encounter for other specified aftercare
CPT/HCPCS: 97110; 97140; 97162

== ENCOUNTER 2023-12-19 10:13 | Outpatient (CLI) | payer MEDICARE, OTHER, SELFPAY ==
--- OUTSIDE RECORDS SUMMARY | 2023-12-19 10:15 | XMS_ITS | Clinical Summary ---
Author Name Unknown Organization [facility] Address [place], [place] [address] Care Team Providers Care Utility Specialist Name Role Phone Leonid Díaz MD Primary Care Provider [phone] Bc Amaro MD Unavailable [phone] Allergies No known active allergies Medications Medication Sig Dispensed Refills Start Date End Date Status apixaban (ELIQUIS) 5 mg tablet Take 1 Tablet (5 mg) by mouth two times daily. 0 12/10/2022 Active semaglutide (OZEMPIC) 2 mg/1.5 mL pen Inject 0.5 mg subcutaneous once weekly. Active metoprolol succinate (TOPROL XL) 50 mg sustained-release tabletIndications :Atrial fibrillation, unspecified type (HC) Take 1 Tablet (50 mg) by mouth once daily. 11/14/2023 Active gabapentin (NEURONTIN) 300 mg capsule Take 1 Capsule (300 mg) by mouth once daily. 0 07/22/2023 12/14/2023 Discontinue d(*Patient states no longer taking) Active Problems Problem Noted Date Diagnosed Date Tiredness 02/13/2021 HTN (hypertension) 04/18/2020 Type 2 diabetes mellitus wit hout complication, without long-term current use of insulin 04/18/2020 Atrial fibrillation with rapid ventricular respo nse 04/18/2020 Acute systolic congestive heart failure 04/18/20 20 Obesity 04/18/2020 Encounters Date Type Department Care Team Description 12/14/2023 11:00 AM CDT Office Visit [facility] - [facility] [address] [place] [address] [place] [phone] Amalia Greenberg NP Follow Up (4-6 wk F/U, ekg prior. Pt states feeling amazing, no afib episodes. No other recent or current cardiac symptoms. ) 12/14/2023 Orders Only [facility] [address] [place] [address] [place] [phone] Amalia Greenberg NP <No scans attached> 12/14/2023 Travel 11/21/2023 11:14 AM CDT Anesthesia Event [facility] [address] [place], [place] [address] [address] Zahira Hdz MD 11/21/2023 11:10 AM CDT - 11/21/2023 12:05 PM CDT Surgery [address] [place] [address] Bc Shi MD CARDIOVERSION 11/21/2023 9:36 AM CDT - 11/21/2023 12:40 PM CDT Hospital Encounter [facility] [place] [address] Bc Shi MD Discharge Disposition: Home Self Care 11/21/2023 Travel 11/15/2023 Travel 11/14/2023 [facility]phone [facility] [place] [address] [place] [phone] Amalia Greenberg NP Medication Management 11/11/2023 Telephone [facility] [place] [phone] Amalia Greenberg NP Questions (Medication at incorrect pharmacy. ) 10/21/2023 9:00 AM SEED CUTTER [facility] [place] [phone] Amalia Greenberg NP CV General Cardiology Est (F/U to Cardioversion; Pt has been feeling great since cardioversion) 10/21/2023 Travel 09/22/2023 2:55 PM SEED CUTTER - 09/22/2023 3:50 PM SEED CUTTER Surgery [address] [place] [address] Bc Shi MD CARDIOVERSION 09/22/2023 2:52 PM SEED CUTTER Anesthesia Event [address] [place] [address] Haim Petit MD 09/22/2023 1:33 PM SEED CUTTER - 09/22/2023 4:16 PM SEED CUTTER Hospital Encounter [address] [place] [address] Bc Shi MD Discharge Disposition: Home Self Care 09/22/[address] [facility] - [address] [place] [phone] Amalia Greenberg NP <No scans attached> 09/22/2023 Travel from Last 3 Months Social History Tobacco Use Types Packs/Day Years Used Date Smoking Tobacco: Every Day Cigarettes 0.5 1.3 Started: 2022 Smokeless Tobacco: Never Tobacco Cessation:Ready to Q uit: Not Asked; Counseling Given: Not Answered Alcohol Use Standard Drinks/Week Comments Yes 0 (1 standard drink = 0.6 oz pur e alcohol) occassional Social Connections Answer Date Recorded Frequency of [...] Sign Reading Time Taken Comments Blood Pressure 132/80 12/14/2023 11:01 AM CDT Pulse 57 12/14/2023 11:01 AM CDT Temperature 36.3 ??C (97.4 ??F) 11/21/2023 1 1:55 AM CDT Respiratory Rate 16 11/21/2023 12:2 5 PM CDT Oxygen Saturation 99% 12/14/2023 11: 01 AM CDT Inhaled Oxygen Concentration - - Weight 125.8 kg (277 lb 4.8 oz) 024 11:01 AM CDT Height 198.1 cm (6' 6) 12/14/2023 11:0 1 AM CDT Body Mass Index 32.05 12/14/2023 11:01 AM CDT Plan of Treatment Health Maintenance Due Date Last Done Comments [...] age 65+ 2022 COVID-19 vaccine series ( season) 2023 Influenza for age 65+ 04/15/2024 BMI (ht and wt on same day) for age 18+ 12/13/2024 12/14/2023, 10/21/2023, 08/30/2023, Additional history exists Lipids for age 45-75 04/19/2025 04/19/2020 Procedures Procedure Name Priority Date/Time Associated Diagnosis Comments EKG 12 LEAD Today 12/14/2023 10:55 AM CDT Atrial fibrillation with rapid ventricular response (HC) EKG 12 LEAD Routine 11/21/2023 11:30 AM CDT CARDIOVERSION Class E Urgent 11/21/2023 11:08 AM CDT Sinus Rhythm Case Notes Dr. Hyman to do H&P, last visit scanned in a corresponding clinical note as he was in SR and has not been seen since in Afib Inking Machine Tender cannot picker tender until after 1500 GLUCOSE METER Timed 11/21/2023 10:04 AM CDT PROTIME-INR GIA 11/21/2023 10:04 AM CDT POTASSIUM GIA 11/21/2023 10:03 AM CDT EKG 12 LEAD Preop 11/21/2023 9:56 AM CDT SCAN-CARDIAC STRIP 11/21/2023 12:00 AM CDT EKG 12 LEAD Routine 10/21/2023 8:51 AM SEED CUTTER Atrial fibrillation, unspecified type (HC) CARDIOVERSION 09/22/2023 2:46 PM SEED CUTTER afib Case Notes COMING AT 1345 POTASSIUM GIA 09/22/2023 2:03 PM SEED CUTTER EKG 12 LEAD Preop 09/22/2023 2:02 PM SEED CUTTER PROTIME-INR GIA 09/22/2023 2:02 PM SEED CUTTER SCAN-CARDIAC STRIP 09/22/2023 12:00 AM SEED CUTTER SCAN-CARDIAC STRIP 09/22/2023 12:00 AM SEED CUTTER SCAN-CARDIAC STRIP 09/22/2023 12:00 AM SEED CUTTER LIPID PANEL Early AM 04/19/2020 6:48 AM [...] NOW QTc 448 ms BEYOND NOW P Allison 58 degrees BEYOND NOW R Allison 54 degrees BEYOND NOW T Allison 45 degrees BEYOND NOW 11/21/2023 11:3 0 AM CDT 12/05/2023 6:13 PM CDT Bc Hernandez MD EKG ORD BEYOND [place], [place] * (ABNORMAL) Protime - INR (11/21/2023 10:04 AM CDT) Only the most recent of2 resultswithin the time period is included. INR 1.2 <1.3 11/21/2023 10:34 AM CDT [facility] PROTIME 13.4(H) 10.3 - 12.3 sec 11/21/2023 10:34 AM CDT [facility] Blood BLOOD SPECIMEN / Unknown Venipuncture / Unknown 11/21/2023 10:04 AM CDT 11/21/2023 10:25 AM CDT Narrative [facility] - 11/21/2023 10:34 AM CDT ?Therapeutic Range [...] Bc Hernandez MD HEMATOLOGY Performing Organization Address City/[facility] Co de Phone Number [address] [address] * (ABNORMAL) GLUCOSE METER (11/21/2023 10:04 AM CDT) GLUCOSE METER 103(H) 65 - 100 mg/dL 11/21/2023 10:05 AM CDT [facility] Blood BLOOD SPECIMEN / Unknown 11/21/2023 10:04 AM CDT 11/21/2023 10:04 AM CDT Bc Hernandez MD CHEMISTRY Performing Organization Address City/[facility] Co de Phone Number [address] [address] * Potassium (11/21/2023 10:03 AM CDT) Only the most recent of2 resultswithin the time period is included. POTASSIUM 4.7 3.5 - 5.1 mmol/L 11/21/2023 11:02 AM CDT [facility] Blood BLOOD SPECIMEN / Unknown Venipuncture / Unknown 11/21/2023 10:03 AM CDT 11/21/2023 10:25 AM CDT Bc Hernandez MD CHEMISTRY Performing Organization Address [facility] de Phone Number [address] [address] * SCAN-CARDIAC STRIP (11/21/2023 12:00 AM CDT) Narrative 11/21/2023 12:00 AM CDT Ordered by an unspecified provider. Other Clinical Staff OTHER * SCAN-CARDIAC STRIP (09/22/2023 12:00 AM SEED CUTTER) Narrative 09/22/2023 12:00 AM SEED CUTTER Ordered by an unspecified provider. Other Clinical Staff OTHER * SCAN-CARDIAC STRIP (09/22/2023 12:00 AM SEED CUTTER) Narrative 09/22/2023 12:00 AM SEED CUTTER Ordered by an unspecified provider. Other Clinical Staff OTHER * SCAN-CARDIAC STRIP (09/22/2023 12:00 AM SEED CUTTER) Narrative 09/22/2023 12:00 AM SEED CUTTER Ordered by an unspecified provider. Other Clinical Staff OTHER * (ABNORMAL) Lipid Panel (04/19/2020 6:48 AM CDT) CHOLESTEROL,TOTAL 202(H) 100 - 199 mg/dL 04/19/2020 7:17 AM CDT [facility] TRIGLYCERIDES 188(H) <150 mg/dL 04/19/2020 7:17 AM CDT [employer] [facility] HDL CHOLESTEROL 33(L) >40 mg/dL 0 7:17 AM CDT [facility] NON-HDL CHOLESTEROL 169(H) <145 mg/dl 04/19/2020 7:17 AM CDT [facility] CHOL/HDL RATIO 6.12(H) <4.50 04/19/2020 7:17 AM CDT [facility] LDL CHOLESTEROL 131(H) <=130 mg/dL 04/19/2020 7:17 AM CDT [facility] PROVIDER ORDERED STATUS RANDOM 04/19/2020 7:17 AM CDT [facility] Blood BLOOD SPECIMEN / Unknown Venipuncture / Unknown 04/19/2020 6:48 AM CDT 04/19/2020 6:54 AM CDT Brandt Melara MD CHEMISTRY [facility] [address] [place] [address], from Last 3 Months or Most Recently [...] Comments Code Status Discussion: Discussed Care Teams Utility Specialist Relationship Specialty Start Date End Date Leonid Díaz MD [address] [place] [address] PCP - General Family Practice 04/17/20 Bc Amaro MD [address] [facility] [address] [place] [id number] Cardiovascular Disease 01/23/21
--- NOTE | 2024-01-03 12:56 | W.PM.SLEEP ---
Sleep Study Details Details Interpreting Provider: Jennifer Date of Sleep Study: 12/19/23 Sleep Study Details: STUDY TYPE:? Home unattended ? BMI:? 32.4 ORDERING PROVIDER:? Jennifer INDICATION:? AFib, concerns about sleep apnea ? SLEEP SUMMARY:? 408 minutes monitored RESPIRATORY SUMMARY:? AHI CMS guideline 26.5, rule 1A guidelines 36.2 Low oxygen 77 31.8% of study oxygen less than 90% Snoring 92.2% PERIODIC LIMB MOVEMENTS OF SLEEP:? Not recorded CARDIAC:? Range 48-107, mean 64.8 IMPRESSION:? Moderate to severe obstructive sleep apnea with significant hypo oxygenation RECOMMENDATION: Treatment options include AutoSet CPAP, in-lab titration, dental appliance and/or airway expansion surgery. Would favor CPAP. Once effective therapy is established an overnight oximetry should be performed.
== END 2023-12-19 10:14 | disposition home or self-care (01) ==
LOC: SLEEP 10:14
PROVIDERS: PCP Family Medicine; Visit Provider Otolaryngology
DX: G47.33 Obstructive sleep apnea (adult) (pediatric) (principal)
CPT/HCPCS: 95806

== ENCOUNTER 2024-07-11 12:37 | Outpatient (CLI) | payer MEDICARE, OTHER, SELFPAY ==
--- OUTSIDE RECORDS SUMMARY | 2024-07-11 12:41 | XMS_ITS | Clinical Summary ---
Author Organization [employer] [facility] Address [place], [place] [address] Care Team Providers Care Metal Bonder Name Role Phone Leonid Díaz MD Primary Care Provider [phone] Bc Amaro MD Unavailable [phone] Allergies No known active allergies Medications Medication Sig Dispensed Refills Start Date End Date Status apixaban (ELIQUIS) 5 mg tablet Take 1 Tablet (5 mg) by mouth two times daily. 0 12/10/2022 Active semaglutide (OZEMPIC) 2 mg/1.5 mL pen Inject 1 mg subcutaneous every . Active propafenone (RYTHMOL) 150 mg tabletIndications :Persistent atrial fibrillation (HC) Take 1 Tablet (150 mg) by mouth every 8 hours. 90 Tablet 2 06/13/2024 Active pantoprazole (PROTONIX) 40 mg delayed-release tabletIndications :Atrial fibrillation, unspecified type (HC) Take 1 Tablet (40 mg) by mouth once daily before a meal for 23 days. 23 Tablet 06/02/2024 4 metoprolol succinate (TOPROL XL) 25 mg Sustained-Release tabletIndications :Atrial fibrillation, unspecified type (HC) Take 1 Tablet (25 mg) by mouth once daily. 90 Tablet 06/01/2024 4 Discontinued (Other - add note to specify (E-cancel not sent)) flecainide (TAMBOCOR) 150 mg tabletIndications :Atrial fibrillation, unspecified type (HC) Take ONE-HALF Tablet (75 mg) by mouth every 12 hours. 30 Tablet 3 06/01/2024 4 Discontinued (Other - add note to specify (E-cancel not sent)) Active Problems Problem Noted Date Diagnosed Date Tiredness 02/13/2021 Primary hypertension 04/18/2020 Type 2 diabetes mellitus wit hout complication, without long-term current use of insulin 04/18/2020 Longstanding persistent atrial fibrillation 11/2019 Acute systolic congestive heart failure 04/18/20 20 Obesity 04/18/2020 Encounters Date Type Department Care Team Description 07/09/2024 Telephone [facility] [address] [facility] [address] [place] [phone] Gisela Sánchez MD 06/19/2024 10:16 AM APN Anesthesia Event [facility] [address] [place] [address] Angel Valentine MD 06/19/2024 7:07 AM APN - 06/19/2024 11:51 AM APN Hospital Encounter [facility] [address] [place] [address] Gisela Sánchez MD Persistent atrial fibrillation (HC) Discharge Disposition: Home Self Care 06/19/2024 Travel 06/15/2024 Orders Only [facility] Scanner 1 scan: (1-Ord) ATRIAL FIBRILLATION, 06/15/2024 06/15/2024 Telephone [facility] [address] [place] [address] Sharon Perez RN EKG 06/13/2024 Orders Only [facility] Scanner 1 scan: (1-Ord) [facility], ABNORMAL, 06/13/2024 06/13/2024 Orders Only [facility] [address], [place] [id number] Gisela Sánchez MD <No scans attached> 06/13/2024 Orders Only [facility] [address] [place] [address] Gisela Sánchez MD <No scans attached> 06/12/2024 Telephone [facility] [address] [facility] [address] [place] [phone] Amalia Greenberg NP Medication Management 06/07/2024 Orders Only [facility] Scanner 1 scan: (1-Ord) [facility], NORMAL, 06/07/2024 05/28/2024 12:00 PM CDT Anesthesia Event [facility] [address] [place] [address] Lizz Franklin MD Schindele, Hilary Anne, CHAITANYA 05/28/2024 8:16 AM CDT - 06/01/2024 7:00 PM CDT Hospital Encounter [facility] [address] [place] [address] Gisela Sánchez MD Atrial fibrillation, unspecified type (HC) (Primary Dx) Discharge Disposition: Home Self Care 05/28/2024 Travel 04/23/2024 Telephone [facility] [address] [facility] [address] [place] [phone] Ema Serra RN EP Procedure 04/19/2024 8:30 AM CDT Office Visit [facility] [address] [place] [address] Yovanny Farias MD 04/13/2024 Orders Only [address] [place] [address] Rylee Cifuentes 1 scan: (1-Ord) ekg final 04/12/2024 3:30 PM CDT Office Visit [address] [place] [address] Gisela Sánchez MD Follow Up (Discuss possible ablation) from Last 3 Months Social History Tobacco Use Types Packs/Day Years Used Date Smoking Tobacco: Every Day Cigarettes 0.5 1.9 Started: 2022 Smokeless Tobacco: Never Tobacco Cessation:Ready to Q uit: Not Asked; Counseling Given: Not Answered Alcohol Use Standard Drinks/Week Comments Yes 0 (1 standard drink = 0.6 oz pur e alcohol) occassional Social Connections Answer Date Recorded Do you often feel lonely or isolated from those around you? 0 05/28/2024 Financial Resource Strain Answer Date R ecorded Difficulty of Paying Living Expenses 3 05/28/2024 Difficulty of Paying Living Expenses Not on file 05/28/2024 Food Insecurity Answer Date Recorded Do you worry your food will run out before you are able to buy more? 1 05/28/2024 Transportation Needs Answer Date Record ed Does lack of transportation keep you from medica l appointments? 1 05/28/2024 Does lack of transportation keep you from work, meetings or getting things that you need? 1 05/28/2024 Housing Stability Answer Date Recorded What is your housing situation today? 1 05/28/2024 Sex and Gender Information Value Date Recorded Sex Assigned at Not on file Gender Identity Not on file Sexual Orientation Not on file Obstetrics History Last Filed Vital Signs Vital Sign Reading Time Taken Comments Blood Pressure 115/83 06/19/2024 11:17 AM APN Pulse 75 06/19/2024 11:17 AM APN Temperature 36.4 C (97.5 F) 06/19/2024 11:17 AM APN Respiratory Rate 17 06/19/2024 11:17 AM APN Oxygen Saturation 98% 06/19/2024 11:17 AM APN Inhaled Oxygen Concentration - - Weight 124.3 kg (274 lb) 06/19/2024 7:22 AM APN Height 195.6 cm (6' 5) 06/19/2024 7:22 AM APN Body Mass Index 32.49 06/19/2024 7:22 AM APN Plan of Treatment Upcoming Encounters Date Type Department Care Team (Late st Contact Info) Description 07/11/2024 1:00 PM APN Ancillary Procedure [facility] [place] [facility] [address] [place] [address] 09/20/2024 4:30 PM APN Office Visit [facility] [address] [place] [address] [address] [place] [address] Gisela Sánchez MD [address] [facility] [address] [place], [place] [phone] Health Maintenance Due Date Last Done Comments [...] 65+ 2022 COVID-19 vaccine series ( - 2023- season) 2024 Influenza for age 65+ 04/15/2024 BMI (ht and wt on same day) for age 18+ 04/12/2025 04/12/2024, 12/14/2023, 10/21/2023, Additional history exists Lipids for age 45-75 04/19/2025 04/19/2020 Procedures Procedure Name Priority Date/Time Associated Diagnosis Comments ECHO ANNABELLA WO CONTRAST W COLOR W LTD DOPPLER Routine 06/19/2024 10:36 AM APN Persistent atrial fibrillation (HC) EKG 12 LEAD Post Op 06/19/2024 10:29 AM APN POTASSIUM,ISTAT Timed 06/19/2024 7:48 AM APN EKG 12 LEAD Preop 06/19/2024 7:10 AM APN SCAN-CARDIAC STRIP 06/19/2024 12 :00 AM APN SCAN-ELECTROCARDIOGRA M EKG 06/15/2024 12:00 AM CDT SCAN-ELECTROCARDIOGRA M EKG 06/13/2024 12:00 AM CDT SCAN-ELECTROCARDIOGRA M EKG 06/07/2024 12:00 AM CDT SCAN-CARDIAC STRIP 06/01/2024 6: 12 PM CDT GLUCOSE METER Timed 06/01/2024 5:04 PM CDT EKG 12 LEAD Timed 06/01/2024 9:14 AM CDT SCAN-CARDIAC STRIP 06/01/2024 8: 11 AM CDT POTASSIUM Early AM 06/01/2024 7:55 AM CDT GLUCOSE METER Timed 06/01/2024 7:41 AM CDT SCAN-CARDIAC STRIP 06/01/2024 12 :07 AM CDT SCAN-CARDIAC STRIP 05/31/2024 11 :46 PM CDT SCAN-CARDIAC STRIP 05/31/2024 11 :45 PM CDT SCAN-CARDIAC STRIP 05/31/2024 11 :45 PM CDT SCAN-CARDIAC STRIP 05/31/2024 11 :17 PM CDT EKG 12 LEAD Routine 05/31/2024 9:57 PM CDT GLUCOSE METER Timed 05/31/2024 9:24 PM CDT GLUCOSE METER Timed 05/31/2024 6:38 PM CDT SCAN-CARDIAC STRIP 05/31/2024 3: 30 PM CDT GLUCOSE METER Timed 05/31/2024 11:40 AM CDT EKG 12 LEAD Timed 05/31/2024 9:36 AM CDT SCAN-CARDIAC STRIP 05/31/2024 9: 10 AM CDT GLUCOSE METER Timed 05/31/2024 7:40 AM CDT MAGNESIUM Early AM 05/31/2024 6:45 AM CDT POTASSIUM Early AM 05/31/2024 6:45 AM CDT SCAN-CARDIAC STRIP 05/30/2024 10 :21 PM CDT GLUCOSE METER Timed 05/30/2024 9:26 PM CDT EKG 12 LEAD Timed 05/30/2024 9:00 PM CDT GLUCOSE METER Timed 05/30/2024 5:04 PM CDT GLUCOSE METER Timed 05/30/2024 12:06 PM CDT SCAN-CARDIAC STRIP 05/30/2024 10 :40 AM CDT EKG 12 LEAD Routine 05/30/2024 9:22 AM CDT GLUCOSE METER Timed 05/30/2024 7:14 AM CDT POTASSIUM Early AM 05/30/2024 7:02 AM CDT MAGNESIUM Early AM 05/30/2024 7:02 AM CDT CREATININE Early AM 05/30/2024 7:02 AM CDT EKG 12 LEAD Routine 05/29/2024 9:28 PM CDT GLUCOSE METER Timed 05/29/2024 8:52 PM CDT GLUCOSE METER Timed 05/29/2024 4:47 PM CDT EKG 12 LEAD Routine 05/29/2024 8:56 AM CDT GLUCOSE METER Timed 05/29/2024 8:40 AM CDT SCAN-CARDIAC STRIP 05/29/2024 7: 49 AM CDT SCAN-CARDIAC STRIP 05/29/2024 7: 49 AM CDT EKG 12 LEAD Early AM 05/29/2024 7:32 AM CDT CREATININE GIA 05/29/2024 4:55 AM CDT MAGNESIUM Early AM 05/29/2024 4:55 AM CDT POTASSIUM Early AM 05/29/2024 4:55 AM CDT SCAN-CARDIAC STRIP 05/29/2024 4: 39 AM CDT SCAN-CARDIAC STRIP 05/28/2024 10 :04 PM CDT SCAN-CARDIAC STRIP 05/28/2024 7: 40 PM CDT SCAN-CARDIAC STRIP 05/28/2024 7: 40 PM CDT GLUCOSE METER Timed 05/28/2024 6:40 PM CDT SCAN-CARDIAC STRIP 05/28/2024 6: 23 PM CDT HCHG ACTIVATED CLOTTING TM CV Timed 05/28/2024 4:06 PM CDT GLUCOSE METER Timed 05/28/2024 3:59 PM CDT CV PROCEDURE TO BE PERFORMED Routine 05/28/2024 3:32 PM CDT HCHG ACTIVATED CLOTTING TM CV Timed 05/28/2024 3:25 PM CDT HCHG ACTIVATED CLOTTING TM CV Timed 05/28/2024 3:08 PM CDT HCHG ACTIVATED CLOTTING TM CV Timed 05/28/2024 2:28 PM CDT HCHG ACTIVATED CLOTTING TM CV Timed 05/28/2024 1:44 PM CDT HCHG ACTIVATED CLOTTING TM CV Timed 05/28/2024 1:01 PM CDT EP STUDY /ABLATION Routine 05/28/2024 12 :40 PM CDT ENDOTRACHEAL TUBE Routine 05/28/2024 12: 18 PM CDT ENDOTRACHEAL TUBE Routine 05/28/2024 12: 18 PM CDT EKG 12 LEAD Preop 05/28/2024 8:50 AM CDT HEMOGLOBIN A1C Add On 05/28/2024 8:49 AM CDT MAGNESIUM GIA 05/28/2024 8:49 AM CDT CBC W PLT NO DIFF Preop 05/28/2024 8:4 9 AM CDT BASIC METABOLIC PANEL Preop 05/28/2024 8:49 AM CDT EXTRA TUBE GOLD/SST Today 05/28/2024 8 :48 AM CDT SCAN-CARDIAC STRIP 05/28/2024 12 :00 AM CDT SCAN-CARDIAC STRIP 05/28/2024 12 :00 AM CDT EKG 12 LEAD Routine 04/13/2024 Persistent atrial fibrillation (HC) LIPID PANEL Early AM 04/19/2020 6:48 AM CDT from Last 3 Months or Most Recently Relevant to Health Maintenance Results * ECHO ANNABELLA WO CONTRAST W COLOR W LTD DOPPLER (06/19/2024 10:36 AM APN) EJECTION FRACTION 40 - 45% Anatomical Region Laterality Modality Ultrasound 06/19/2024 8:26 AM APN Narrative 06/19/2024 1:43 PM APN TRANSESOPHAGEAL ECHOCARDIOGRAM SALINAS GUERRERO : 1955 68 years Study Date: 06/19/2024 8:26:25 AM Gender: M BP: 111/75 mmHg Height: 195.00 cm BSA: 2.55 m Weight: 124.00 kg Tech: ILENE Referring MD: TRESSA SANTOYO Site: [facility] Reading Location: ANW OP Patient Location: Outpatient. Procedure: ANNABELLA, Color Doppler and Limited Spectral Doppler. Indication for study: Cardioversion Cardiac Rhythm: Atrial fibrillation.Study quality: Good. Final Impressions: 1. Normal left ventricular size, mildly decreased global systolic function with an estimated EF of 40 - 45%. 2. No significant valve disease detected. 3. No evidence of thrombus present in the left atrial appendage. 4. The aortic sinus is dilated with a maximal diameter of 4.2 cm. Procedure comments: Indications, goals, risks and alternatives of the procedure were discussed with the patient and informed consent was obtained. The patient received sedation of intravenous Propofol and general anesthesia. See procedural record for anesthesia details. Prior to performance of procedure, time out was called to accurately identify the patient and procedure. The Juliett 2.0 probe was passed without difficulty. ANNABELLA, Color Doppler and Limited Spectral Doppler was performed. The patient developed no apparent complications during the procedure. Estimated Blood Loss: 0 ml Chamber Sizes and Function Normal left ventricular size, mildly decreased global systolic function with an estimated EF of 40 - 45%. No resting regional wall motion abnormality visualized. Left atrial size is moderately enlarged. The left atrial appendage is well visualized and there is no evidence of thrombus present. Normal left atrial appendage flow velocities. Right ventricular cavity size is normal, global systolic RV function is normal. The right atrium is not well visualized. The pulmonary artery is of normal size and origin. The sinus of Valsalva is dilated. The ascending aorta is not well visualized. Aortic arch is normal sized. Descending aorta is normal sized. Valves, RV Pressures and Diastolic Function The aortic valve is trileaflet, no stenosis and no regurgitation. The mitral valve is normal in structure, trace mitral regurgitation. The tricuspid valve is normal in structure. Tricuspid regurgitation is trace regurgitation. The pulmonic valve is normal. Trace pulmonary regurgitation. Masses, Effusion, Shunts There is no pericardial effusion. Atrial septum is intact. Agitated saline injection not done. MEASUREMENTS AND CALCULATIONS 2-D Measurements and LV Function: Ao Sinus 4.2 cm HR 112 bpm . This study was interpreted by an [facility] accredited facility. Final Procedure Note Saqib Austin MD - 06/19/2024 TRANSESOPHAGEAL ECHOCARDIOGRAM SALINAS GUERRERO : 1955 68 years Study Date: 06/19/2024 8:26:25 AM Gender: M BP: 111/75 mmHg Height: 195.00 cm BSA: 2.55 m Weight: 124.00 kg Tech: ILENE Stone MD: TRESSA SANTOYO Site: [facility] Reading Location: ANW OP Patient Location: Outpatient. Procedure: ANNABELLA, Color Doppler and Limited Spectral Doppler. Indication for study: Cardioversion Cardiac Rhythm: Atrial fibrillation.Study quality: Good. Final Impressions: 1. Normal left ventricular size, mildly decreased global systolicfunction with an estimated EF of 40 - 45%. 2. No significant valve disease detected. 3. No evidence of thrombus present in the left atrial appendage. 4. The aortic sinus is dilated with a maximal diameter of 4.2 cm. Procedure comments: Indications, goals, risks and alternatives of theprocedure were discussed with the patient and informed consent wasobtained. The patient received sedation of intravenous Propofol andgeneral anesthesia. See procedural record for anesthesia details. Prior toperformance of procedure, time out was called to accurately identify thepatient and procedure. The Juliett 2.0 probe was passed withoutdifficulty. ANNABELLA, Color Doppler and Limited Spectral Doppler was performed.The patient developed no apparent complications during the procedure. Estimated Blood Loss: 0 ml Chamber Sizes and Function Normal left ventricular size, mildly decreased global systolic functionwith an estimated EF of 40 - 45%. No resting regional wall motionabnormality visualized. Left atrial size is moderately enlarged. The leftatrial appendage is well visualized and there is no evidence of thrombuspresent. Normal left atrial appendage flow velocities. Right ventricularcavity size is normal, global systolic RV function is normal. The rightatrium is not well visualized. The pulmonary artery is of normal size andorigin. The sinus of Valsalva is dilated. The ascending aorta is not wellvisualized. Aortic arch is normal sized. Descending aorta is normalsized. Valves, RV Pressures and Diastolic Function The aortic valve is trileaflet, no stenosis and no regurgitation. Themitral valve is normal in structure, trace mitral regurgitation. Thetricuspid valve is normal in structure. Tricuspid regurgitation is traceregurgitation. The pulmonic valve is normal. Trace pulmonaryregurgitation. Masses, Effusion, Shunts There is no pericardial effusion. Atrial septum is intact. Agitated salineinjection not done. MEASUREMENTS AND CALCULATIONS 2-D Measurements and LV Function: Ao Sinus 4.2 cm HR 112 bpm . This study was interpreted by an [facility] accredited facility. Final Tressa BARNETT ECHO ORD * EKG (06/19/2024 10:29 AM APN) Only the most recent of12 resultswithin the time period is included. Interpretation Sinus rhythm with 1st degree A-V block Otherwise normal ECG When compared with ECG of 19-Jun-2024 07:10, Sinus rhythm has replaced Atrial fibrillation Nonspecific T wave abnormality no longer evident in Inferior leads QT has lengthened BEYOND NOW Ventricular Rate 78 BPM BEYOND NOW Atrial Rate 78 BPM BEYOND NOW P-R Interval 210 ms BEYOND NOW QRS Duration 92 ms BEYOND NOW QT 398 ms BEYOND NOW QTc 453 ms BEYOND NOW P Carbon 67 degrees BEYOND NOW R Carbon 36 degrees BEYOND NOW T Carbon 39 degrees BEYOND NOW 06/19/2024 10:2 9 AM APN 06/19/2024 1:23 PM APN Narrative BEYOND NOW - 06/19/2024 1:23 PM APN Test Indication: POST Elizabeth Luna TOWEL FOLDER EKG ORD BEYOND NOW [place], [place] * POTASSIUM,ISTAT (06/19/2024 7:48 AM APN) Pathologist [facility] POTASSIUM, POCT 4.2 3.5 - 5.0 mmol/L 06/19/2024 6:49 PM APN [facility] Blood BLOOD SPECIMEN / Unknown 06/19/2024 7:48 AM APN 06/19/2024 6:49 PM APN Gisela Sánchez MD CHEMISTRY [facility] [address] [place] [address], * SCAN-CARDIAC STRIP (06/19/2024 12:00 AM APN) Narrative 06/19/2024 12:00 AM APN Ordered by an unspecified provider. Other Clinical Staff OTHER * SCAN-ELECTROCARDIOGRAM EKG (06/15/2024 12:00 AM CDT) Only the most recent of3 resultswithin the time period is included. Scanner OTHER * SCAN-CARDIAC STRIP (06/01/2024 6:12 PM CDT) Scanner OTHER * (ABNORMAL) GLUCOSE METER (06/01/2024 5:04 PM CDT) Only the most recent of15 resultswithin the time period is included. GLUCOSE METER 107(H) 65 - 100 mg/dL 06/01/2024 5:05 PM CDT [facility] Blood BLOOD SPECIMEN / Unknown 06/01/2024 5:04 PM CDT 06/01/2024 5:05 PM CDT Gisela Sánchez MD CHEMISTRY Performing Organization Address [facility] Co de Phone Number [facility] [address] * SCAN-CARDIAC STRIP (06/01/2024 8:11 AM CDT) Scanner OTHER * POTASSIUM (06/01/2024 7:55 AM CDT) Only the most recent of4 resultswithin the time period is included. [facility] POTASSIUM 4.3 3.5 - 5.1 mmol/L 06/01/2024 8:28 AM CDT [facility] Blood BLOOD SPECIMEN / Unknown Venipuncture / Unknown 06/01/2024 7:55 AM CDT 06/01/2024 8:04 AM CDT Gisela Sánchez MD CHEMISTRY Performing Organization Address City/[facility] Co de Phone Number [facility] [address] * SCAN-CARDIAC STRIP (06/01/2024 12:07 AM CDT) Scanner OTHER * SCAN-CARDIAC STRIP (05/31/2024 11:46 PM CDT) Scanner OTHER * SCAN-CARDIAC STRIP (05/31/2024 11:45 PM CDT) Scanner OTHER * SCAN-CARDIAC STRIP (05/31/2024 11:45 PM CDT) Scanner OTHER * SCAN-CARDIAC STRIP (05/31/2024 11:17 PM CDT) Scanner OTHER * SCAN-CARDIAC STRIP (05/31/2024 3:30 PM CDT) Scanner OTHER * SCAN-CARDIAC STRIP (05/31/2024 9:10 AM CDT) Scanner OTHER * MAGNESIUM (05/31/2024 6:45 AM CDT) Only the most recent of4 resultswithin the time period is included. Pathologist [facility] MAGNESIUM 1.9 1.6 - 2.4 mg/dL 05/31/2024 7:52 AM CDT [facility] Blood BLOOD SPECIMEN / Unknown Venipuncture / Unknown 05/31/2024 6:45 AM CDT 05/31/2024 7:24 AM CDT Gisela Sánchez MD CHEMISTRY Performing Organization Address City/State/[facility] Co de Phone Number [facility] [address] [place] [address] * SCAN-CARDIAC STRIP (05/30/2024 10:21 PM CDT) Scanner OTHER * SCAN-CARDIAC STRIP (05/30/2024 10:40 AM CDT) Scanner OTHER * (ABNORMAL) CREATININE (05/30/2024 7:02 AM CDT) Only the most recent of2 resultswithin the time period is included. Pathologist [facility] eGFR 86(L) >90 mL/min/1.7 3m2 05/30/2024 7:46 AM CDT [facility] Comment:As of 2021, eG FR is calculated by the CKD-EPI creatinine equation without race adjustment. eGFR can be influenced by muscle mass, exercise, and diet. The reported eGFR is an estimation only and is only applicable if the renal function is stable. CREATININE 0.97 0.70 - 1.20 mg/dL 05/30/2024 7:46 AM CDT [facility] Blood BLOOD SPECIMEN / Unknown Butterfly / Unknown 05/30/2024 7:02 AM CDT 05/30/2024 7:18 AM CDT Gisela Sánchez MD CHEMISTRY [facility] [address] [place] [address], * SCAN-CARDIAC STRIP (05/29/2024 7:49 AM CDT) Scanner OTHER * SCAN-CARDIAC STRIP (05/29/2024 7:49 AM CDT) Scanner OTHER * SCAN-CARDIAC STRIP (05/29/2024 4:39 AM CDT) Scanner OTHER * SCAN-CARDIAC STRIP (05/28/2024 10:04 PM CDT) Scanner OTHER * SCAN-CARDIAC STRIP (05/28/2024 7:40 PM CDT) Scanner OTHER * SCAN-CARDIAC STRIP (05/28/2024 7:40 PM CDT) Scanner OTHER * SCAN-CARDIAC STRIP (05/28/2024 6:23 PM CDT) Scanner OTHER * (ABNORMAL) ACTIVATED CLOTTING TIME [id number] ACT (05/28/2024 4:06 PM CDT) Only the most recent of6 resultswithin the time period is included. [facility] ACTIVATED CLOTTING TIME, POCT 232(H) 74 - 125 sec 05/29/2024 4:38 AM CDT [facility] Blood BLOOD SPECIMEN / Unknown 05/28/2024 4:06 PM CDT 05/29/2024 4:38 AM CDT Gisela Sánchez MD HEMATOLOGY [facility] [address] [place] [id number], * EP Procedure to be Performed (05/28/2024 3:32 PM CDT) Narrative Gisela Sánchez MD - 05/28/2024 3:32 PM CDT Gisela Sánchez MD 05/28/2024 5:36 PM Cardiac Electrophysiology Immediate Post Procedure Note Preoperative Diagnosis: Longstanding persistent atrial fibrillation Procedure: EP study with pulmonary vein isolation, roof line and ibutilide administration, DCCV X 4 Findings/Conclusions: Same as above, patient had evidence of dual AV-dia physiology without echo beats, patient converted with ibutilide 1 mg X 2 Postoperative Diagnosis: Same as preoperative diagnosis Complications: NA Personally monitored patient with conscious sedation during procedure: No Estimated Blood Loss: minimal Specimen: N/A Plan: 1) Sheath pull when ACT < 200 (patient had 7F short and 8F long 9F long RFV) 2) Ongoing anticoagulation with apixaban 5 mg po bid when able to take pos 3) Pantoprazole 40 mg daily X 1 month 4) Approximately 1 L positive and opening LA pressure measured 8 mmHg, no furosemide given in the EP lab. Should be discharged on furosemide 20 mg daily until back to baseline weight. 5) Patient was given decadron 8 mg IV in the EP lab - may raise blood sugars 6) Bed rest X 3 hours 7) Anticipate discharge tbd - may admit for dofetilide loading 8) Other medication changes: start dofetilide 500 mcg bid in am, decrease metoprolol to 25 mg po bid 9) Follow-up with EP in 3-4 months or sooner as necessary. Surgeon: Gisela Sánchez MD Gisela Sánchez MD ENGINE MONITOR ORD * EP STUDY /ABLATION (05/28/2024 12:40 PM CDT) Anatomical Region Laterality Modality X-Ray Angiograph y, X-Ray Angiography 05/28/2024 12:4 0 PM CDT Narrative Transcriptions Gisela Sánchez MD - 05/29/2024 5:25 AM CDT [facility] [place] [facility] [place] [facility] Electrophysiology Procedure Report Name: SALINAS GUERRERO Event Date: 05/28/2024 Francisco Javierian ID #: [id number] Date: 1955 Gender: Male Age: 68 [facility] #: [id number] Procedure Performed By: GISELA SÁNCHEZ [facility] [facility] Supervisor: GISELA SÁNCHEZ Referring Physician: Summary / Conclusions VASCULAR ACCESS * Using ultrasound guidance and a percutaneous technique, the rightfemoral vein was accessed. Ultrasound was used to confirm vessel patency,localizing needle into the lumen of the vessel. For safety purposes, apicture was saved for the medical record. ARRHYTHMIA * Persistent atrial fibrillation observed, with successful ablation. * Persistent atrial fibrillation with unsuccessful cardioversionattemtp(s)but successful conversion with IV ibutilide POST ABLATION * Post ablation testing without isoproterenol infusion revealed normalbasic intervals. DISCUSSION * ICE Catheter utilized during procedure. Recommendations / Plan 1) Sheath pull when ACT < 200 (patient had 7F short and 8F long 9F longRFV) 2) Ongoing anticoagulation with apixaban 5 mg po bid when able to takepos 3) Pantoprazole 40 mg daily X 1 month 4) Approximately 1 L positive and opening LA pressure measured 8 mmHg, nofurosemide given in the EP lab. Should be discharged on furosemide 20 mgdaily until back to baseline weight. 5) Patient was given decadron 8 mg IV in the EP lab - may raise bloodsugars 6) Bed rest X 3 hours 7) Anticipate discharge tbd - may admit for dofetilide loading 8) Other medication changes: start dofetilide 500 mcg bid in am, decreasemetoprolol to 25 mg po bid 9) Follow-up with EP in 3-4 months or sooner as necessary. Pre-Operative Diagnosis ? Atrial Fibrillation, Paroxysmal Post-Operative Diagnosis ? Same as Pre-operative diagnosis Indications ? Same as Pre-operative diagnosis Brief Patient History In summary, Mr. Guerrero is a 68-year-old gentleman with past medicalhistory of longstanding persistent atrial fibrillation with associatedsymptoms who presents for an atrial fibrillation ablation. Consent & Grantham Protocol Grantham protocol was followed. TIME OUT conducted just prior tostarting procedure confirmed patient identity, site/side, procedure,patient position, and availability of correct equipment and implants (ifapplicable). The risks, benefits, and alternatives of the procedure were discussed withthe patient and written informed consent was obtained. Procedure Description After confirmation of informed consent, the patient was brought to the EPlab. The patient arrived to the EP laboratory in atrial fibrillation. Theprocedure was performed under general anesthesia. The patient was preppedand draped in the usual sterile fashion. After a time out, usingultrasound guidance and the modified seldinger technique, sheaths wereplaced as follows: three in the right femoral vein (8F, 7F and 9F long).We advanced a 10-pole catheter into the CS and an ICE catheter was placedinto the RA. The RFV sheath was exchanged for a long sheath (8F Preface)and LA instrumentation was performed with single trans-septal puncture,ICE and fluoroscopy for guidance. Systemic anticoagulation withintravenous heparin was initiated just prior to the first trans-septalpuncture with a target ACT of about 400 sec. LA pressure was measured andwas 8 mmHg. A n octaray catheter was used to create left atrial geometry and to createa ripple map. The left atrium was noted to be enlarged with fairly lowvoltages in atrial fibrillation consistent with an atriopathy secondary topersistent atrial fibrillation. The pulmonary veins were successfullyisolated at their respective antra a contact force irrigated ablationcatheter using an ICE and CARTO anatomically- guided technique but with theadditional input of the pentaray and ablation catheter. The esophagus ranposterior to the LIPV and we used the 90W/4 second duration strategy onthe posterior wall with skip lesions. We paced with high output along theseptum and along the giselle of the right-sided veins and did not findareas that captured the diaphragm. We created an additional line acrossthe roof that connected to an area that had high frequency signals on theripple map anterior to the RUPV. During ablation on the right posteriorwall, I attempted to cardiovert him with up to 360 J with pressure on thepads but I was unable to achieve even one beat of sinus rhythm. I thenadministered ibutilide 1 mg X 2 and he converted to sinus rhythm after thesecond dose. I placed the octaray back in the left atrium after heconverted to sinus rhythm and found an area on the posterior giselle of theRIPV and the anterior giselle on the LUPV that had persistent conduction.I then ablated these areas to achieve PVI. After demonstrating entranceand exit block in all the veins, we then withdrew the catheter into theright atrium. A complete EP study including left atrial (coronary sinus) pacing andhis-bundle recording was performed which demonstrated normal intervals andconcentric VA conduction. The patient had no evidence of dual AV-nodalphysiology. Survey with ICE at the end of the case did not demonstrate apericardial effusion. The catheters were withdrawn from the body. Systemic anticoagulation wasdiscontinued and partially reversed with intravenous protamine. Thepatient will be extubated and transferred to the PACU where the groinsheaths will be removed and hemostasis achieved by manual compression. Thepatient tolerated the procedure well and there were no immediatecomplications. Electrophysiology Study Data Basic Intervals Study State Underlying Rhythm Cycle Length MN PA AH HV QRS Carbon QRSMorphology Baseline Atrial Fibrillation [phone] Post Ablation NSR 1143 189 136 50 Antegrade Refractory Periods Study State Pacing Site Paced Cycle Length Paced Cycle ERP AVN ERP DualNode Physiology? AVN ERP (fast) AVN ERP (slow) Post Ablation CS 700 290 Yes 360 Study Events Atrial 700 290 Retrograde 1:1 AV Node Function Study State Pacing Site AV Node SCL 1:1 Dual AVN Physiology? AVN Fast 1:1 AVN Slow 1:1 Wenkebach Cycle Length No VA Conduction? Midline Activation? Post Ablation RVA VAD @ 700 No Electrophysiology Procedure Results SINUS NODE * The sinus node conduction is normal. AV NODE * The AV node conduction is normal. HIS/PURKINJE SYSTEM * The His/Purkinje system conduction is normal. Ablation Data Atrial Fibrillation Energy Source Ablation Catheter Used Rhythm During Ablation # of AttemptsMax Lindo Max Temp. Result RF QDOT NSR 109 90 28 Success Left atrial lesion sets were placed. The left inferior pulmonary vein was isolated. The left superior pulmonary vein was isolated. The right inferior pulmonary vein was isolated. The right superior pulmonary vein was isolated. A circumferential lesion set was placed around the right pulmonaryveins. A circumferential lesion set was placed around the left pulmonary veins. A lesion set was placed across the left atrial roofline. Comments: Total ablation time: 651 (seconds) Catheter Use Catheter Type Catheter Description Insertion Site Intracardiac Site SheathSize Sheath Type Sheath Description Diagnostic SoundStar 3D Diagnostic Ultrasound Catheter Right Femoral VeinHRA 9F Standard Sidearm Ablation QDot Micro Bi-Directional Navigation Catheter, D-F-Curve RightFemoral Vein Map/Abl 8Fr Guide Preface Diagnostic/Map OctaRay Patrice F-curve 2-2-2-2 Right Femoral Vein Map/Abl 8FGuide Preface Diagnostic/Map DecaNav F-Curve Decapolar 2-8-2 spacing Right Femoral VeinCS 7 Fr Standard Sidearm Diagnostic Level 1 Esophageal/Rectal Temperature Probe Esophagus Esophagus Diagnostic EsophaStar Esophageal Mapping Catheter, 125 cm EsophagusEsophagus Procedure(s) Performed ? 3D Mapping ? Intracardiac Echocardiography ? Site-Rite Ultrasound used for vascular access ? A Fib/PV Isolation Ablation ? Programmed stimulation after drug Infusion (e.g.,Isoproteronol) ? A Fib Additional linear/focal ablation RA/LA Auxiliary Device Intracardiac Echo Used: Yes Mapping System 1: Carto Procedure Detail Estimated Blood Loss: < 50 ml Specimen Collected: None Level of Sedation Achieved: See Anesthesia Note Total Flouro Time: 2 PREP PERSON Total Flouro Dose: 4 mGy Transseptal Mean LA Pressure: 10 mmHg Staff Name Role Gisela Sánchez [facility] Supervisor Jaya Bean RN Nurse Christiano Escobar PA Monitor GaraffaJanett TOWEL FOLDER Monitor Chantale Ogden CVT Scrub La Stanford EPAraseli Nursery Attendant Lizz Franklin Anesthesiologist Michelle Sims RN Nurse Medications Ordered and Administered Start Time Stop Time Medication Dose Units Route Ordered By Given By 12:41 0.25% Bupivicaine 3.5 mL Subcut MD Gisela Cr MD 12:41 1% Lidocaine Hydrochloride 3.5 mL Subcut Constanza Cr MD 12:49 Heparin 32114 Units IV MD Michelle Cr RN 13:56 Heparin 4000 Units IV MD Jaya Cr RN 14:26 Ibutilide (Corvert) 1 Mg IV MD Jaya Cr RN 14:34 Heparin 5000 Units IV MD Jaya Cr, PRITI 14:38 Ibutilide (Corvert) 1 Mg IV MD Jaya Cr, RN 15:16 Heparin 3000 Units IV MD Jaya Cr, PRITI 15:28 Protamine 40 Mg IV MD Jaya Cr, RN The anesthesia service monitored the patient?s conscious sedation duringthe procedure. The medications listed above were verbally ordered by me and read back tome as documented above. Refer to the hemodynamic procedure log report for additional casedetails. electronically signed on 05/29/2024 5:25:14 AM with status of Final Gisela Sánchez MD [facility] Supervisor [facility] [address] [place] [address] (p) [phone](f) Gisela Sánchez MD CV IMAGING * HCHG TUBE PR1, HCHG INSTRUMENT DISP PR10 (05/28/2024 12:18 PM CDT) Narrative Maura Calvert CRNA - 05/28/2024 12:18 PM CDT Maura Calvert CRNA 05/28/2024 12:19 PM Procedure: ETT Patient location during procedure: OR ETT Properties Mask Ventilation: easy Final Technique: video laryngoscopy Type: straight Location: oral Cuffed: yes Tube Size: 8.0 mm Laryngoscope Blade: Glidescope Blade Size: 4 Cormack-Lehane Grade View: 1 (cords open/clear) Insertion Attempts: 1 Placement Verification: auscultation, end tidal CO2 and symmetrical chest wall movement Secured at: 23 Measured From: lips Difficulty: 0 (not difficult) Lizz Franklin MD ANESTHESIA PX NOTE O RDERABLES * HEMOGLOBIN A1C (05/28/2024 8:49 AM CDT) HEMOGLOBIN A1C SCREENING 5.3 <=6.4 % 05/29/2024 2:57 PM CDT [facility] Blood BLOOD SPECIMEN / Unknown Non-Lab Venipuncture / Unknown 05/28/2024 8:49 AM CDT 05/28/2024 8:57 AM CDT [facility] - 05/29/2024 2:57 PM CDT (<5.7%) Normal (5.7% to 6.4%) Indicates prediabetes (>=6.5%) Confirms diabetes Falsely low levels may be seen with: Recent Transfusion, Recent Significant Blood Loss, Hemolytic Diseases, or Falsely elevated levels may be seen with: Untreated Anemias, Splenectomy Gisela Sánchez MD CHEMISTRY [facility] [address] [place] [address], * CBC with Platelet no Diff (05/28/2024 8:49 AM CDT) WHITE BLOOD COUNT 7.5 4.5 - 11.0 thou/cu mm 05/28/2024 9:17 AM CDT [facility] RED BLOOD COUNT 5.22 4.30 - 5.90 mil/cu mm 05/28/2024 9:17 AM CDT [facility] HEMOGLOBIN 16.8 13.5 - 17.5 g/dL 05/28/2024 9:17 AM CDT [facility] HEMATOCRIT 48.9 37.0 - 53.0 % 05/28/2024 9:17 AM CDT [facility] MCV 94 80 - 100 fL 05/28/2024 9:17 AM CDT [facility] MCH 32.2 26.0 - 34.0 pg 05/28/2024 9:17 AM CDT [facility] MCHC 34.4 32.0 - 36.0 g/dL 05/28/2024 9:17 AM CDT [facility] RDW 12.6 11.5 - 15.5 % 05/28/2024 9:17 AM CDT [facility] PLATELET COUNT 208 140 - 440 thou/cu mm 05/28/2024 9:17 AM CDT [facility] MPV 10.6 6.5 - 11.0 fL 05/28/2024 9:17 AM CDT [facility] NRBC 0.0 % 05/28/2024 9:17 AM CDT [facility] ABS NRBC 0.0 thou /cu mm 05/28/2024 9:17 AM T [facility] Blood BLOOD SPECIMEN / Unknown Non-Lab Venipuncture / Unknown 05/28/2024 8:49 AM CDT 05/28/2024 8:57 AM CDT Gisela Sánchez MD HEMATOLOGY [facility] [address] [place] [address], * (ABNORMAL) Basic Metabolic Panel (05/28/2024 8:49 AM CDT) SODIUM 136 136 - 145 mmol/L 05/28/2024 9:43 AM [facility] POTASSIUM 4.3 3.5 - 5.1 mmol/L 05/28/2024 9:43 AM [facility] CHLORIDE 103 98 - 107 mmol/L 05/28/2024 9:43 AM [facility] CO2,TOTAL 23 22 - 29 mmol/L 05/28/2024 9:43 AM [facility] ANION GAP 10 5 - 18 05/28/2024 9:43 AM [facility] GLUCOSE 105(H) 70 - 99 mg/dL 05/28/2024 9:43 AM [facility] CALCIUM 9.3 8.8 - 10.2 mg/dL 05/28/2024 9:43 AM [facility] BUN 15 8 - 23 mg/dL 05/28/2024 9:43 AM [facility] CREATININE 1.11 0.70 - 1.20 mg/dL 05/28/2024 9:43 AM [facility] BUN/CREAT RATIO 14 10 - 20 9:43 AM [facility] eGFR 73(L) >90 mL/min/1.7 3m2 05/28/2024 9:43 AM CDT [facility] Comment:As of 2021, eG FR is calculated by the CKD-EPI creatinine equation without race adjustment. eGFR can be influenced by muscle mass, exercise, and diet. The reported eGFR is an estimation only and is only applicable if the renal function is stable. Blood BLOOD SPECIMEN / Unknown Non-Lab Venipuncture / Unknown 05/28/2024 8:49 AM CDT 05/28/2024 8:57 AM CDT Gisela Sánchez MD CHEMISTRY Performing Organization Address [facility] Co de Phone Number [facility] [address] * EXTRA TUBE GOLD/SST (05/28/2024 8:48 AM CDT) Blood BLOOD SPECIMEN / Unknown Extra Tube / Unknown 05/28/2024 8:48 AM CDT 05/28/2024 8:58 AM CDT Gisela Sánchez MD LABORATORY Performing Organization Address [facility] Co de Phone Number [facility] [address] [place] [address], * SCAN-CARDIAC STRIP (05/28/2024 12:00 AM CDT) Narrative 05/28/2024 12:00 AM CDT Ordered by an unspecified provider. Other Clinical Staff OTHER * SCAN-CARDIAC STRIP (05/28/2024 12:00 AM CDT) Narrative 05/28/2024 12:00 AM CDT Ordered by an unspecified provider. Other Clinical Staff OTHER * (ABNORMAL) Lipid Panel (04/19/2020 6:48 AM CDT) [facility] CHOLESTEROL,TOTAL 202(H) 100 - 199 mg/dL 04/19/2020 7:17 AM CDT [facility] TRIGLYCERIDES 188(H) <150 mg/dL 04/19/2020 7:17 AM CDT [facility] HDL CHOLESTEROL 33(L) >40 mg/dL 0 7:17 AM CDT [facility] NON-HDL CHOLESTEROL 169(H) <145 mg/dl 04/19/2020 7:17 AM CDT [facility] CHOL/HDL RATIO 6.12(H) <4.50 04/19/2020 7:17 AM CDT [facility] LDL CHOLESTEROL 131(H) <=130 mg/dL 04/19/2020 7:17 AM CDT [facility] PROVIDER ORDERED STATUS RANDOM 04/19/2020 7:17 AM CDT [facility] Blood BLOOD SPECIMEN / Unknown Venipuncture / Unknown 04/19/2020 6:48 AM CDT 04/19/2020 6:54 AM CDT Brandt Melara MD CHEMISTRY [facility] [address] [place] [address], [place] from Last 3 Months or Most Recently Relevant to Health Maintenance Advance Directives * Full Code (Latest Code Status on File) Date Activated Date Inactivated Comments 06/19/2024 10:12 AM 06/19/2024 1:57 PM Question Answer Comments Code Status Discussion: Unable to Assess Preferences, Provider to review later * Full Code Date Activated Date Inactivated Comments 05/28/2024 3:37 PM 06/01/2024 9:31 PM Question Answer Comments Code Status Discussion: Reviewed Preferences * Full Code Date Activated Date Inactivated [...] to Assess Preferences, Provider to review later Care Teams Metal [employer] Relationship Specialty Start Date End Date Leonid Díaz MD [address] [place] [address] PCP - General Family Practice 04/17/20 Bc Amaro MD [address] [facility] [address] [place] [address] Cardiovascular Disease 01/23/21
== END 2024-07-11 12:38 | disposition home or self-care (01) ==
LOC: RAD 12:39
PROVIDERS: PCP Family Medicine; Visit Provider Internal Medicine Cardiovascular Disease
DX: I51.9 Heart disease, unspecified (principal); I34.0 Nonrheumatic mitral (valve) insufficiency
CPT/HCPCS: 93308; 93321; 93325

== ENCOUNTER 2024-10-30 13:21 | Outpatient (CLI) | payer MEDICARE, SELFPAY | END 2024-10-30 13:22 | disposition home or self-care (01) | PROVIDERS: PCP Family Medicine; Visit Provider Family Medicine | DX: I10 Essential (primary) hypertension (principal); R79.89 Other specified abnormal findings of blood chemistry; N40.1 Benign prostatic hyperplasia with lower urinary tract symptoms; E11.9 Type 2 diabetes mellitus without complications; Z79.85 Long-term (current) use of injectable non-insulin antidiabetic drugs; Z13.220 Encounter for screening for lipoid disorders; Z12.5 Encounter for screening for malignant neoplasm of prostate | CPT/HCPCS: 80053; 80061; 82043; 82570; 84270; 84402; 84403; G0103 ==